=== PATIENT | female | born 2005 | race Caucasian/White ===

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

== ENCOUNTER 2025-04-07 09:50 | Emergency (ER) | payer SELFPAY ==
--- OUTSIDE RECORDS SUMMARY | 2023-10-29 06:40 | XMS_ITS ---
Author Organization [facility] es Address [address] [place] [address] Care Team Providers Care Clock Repairer Name Role Phone Kristen Jarvis Primary Care Provider [phone] Ko Zamudio Unavailable [phone] REASON FOR VISIT EXAM Encounters Encounter Location Date Provider Diagnosis [address] [facility] [address] [place] [address] 10/29/2023 Ko Daley Plan Of Treatment No Information Progress Notes * JOANNA HUGHESDOB:2005 (19 yo F)Acc No.[id number]:10/29/2023 Patient: JOANNA ARANGO .1 Provider: Barbie Daley DDS :2005 A ge:18 Y S ex:Female Date:10/29/2023 [facility] [id number] Pcp:Kristen Jarvis Subjective: * Chief Complaints: * 1 . EXAM. * Medical History: Objective: * Vitals: Assessment: Plan: * Treatment: * Images: * Electronic signature of Francisca Daley DDS on 04/07/2025 at 10:06 AM EDT Sign off status: Pending * Provider: Barbie Daley DDS Date: 10/29/2023 Generated for Kevin wills/Lakhwinder/Yessenia on: 0 04/07/2025 10:06 AM EDT
[2025-04-07 09:57] VITALS: BP 123/67; PULSE 82; TEMP 37.3; O2SAT 99; BMI 17.3
--- OUTSIDE RECORDS SUMMARY | 2025-04-07 10:07 | XMS_ITS | Patient Health Record ---
Author Organization [employer] 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 Name Role Phone Kristen Jarvis Primary Care Provider [phone] Reason For Referral No Information Medications Medication SIG (Take, Route, Frequency, Duration) Notes Start Date End Date Status Ibuprofen Childrens 100 MG/5ML 10 ml as needed Orally every 6 hrs 11/03/2014 Active Omeprazole 20 MG 1 capsule Orally Onc e a day; Duration: 30 day(s) 07/05/2014 Not-Dilan ing Problems Problem Type SNOMED Code ICD Code Onset Dates Problem Status W/U Status Risk Notes Problem Constipation (61241566) Unspecified constipation (564.00) Active confirmed Problem Nausea (690244298) Nausea alone (787.02) Active confirmed Problem Generalized abdominal pain (086276819) Abdominal pain,generalized (789.07) Active confirmed Plan Of Treatment No Information Insurance Providers Payer Name Payer Address Payer Phone Subscriber Number Group Number Insured Name Patient Relationship to Insured Coverage Start Date Coverage End Date [employer] -ter[employer] [address] [place] [address] [id number] JOANNA HUGHES Self - patient is the insured EDICAID [facility] after [employer]- termed [address] [place] [address] [id number] JOANNA HUGHES Self - patient is the insured Medical (General) History Medical History History ICD Code LEVEL 2
--- OUTSIDE RECORDS SUMMARY | 2025-04-07 10:07 | XMS_ITS | Clinical Summary ---
Author Organization [facility] Address [address] [address] Care Team Providers Care Sales And Service Change Leader Name Role Phone Self, Referred Primary Care Provider Unavailabl e Allergies Active Allergy Reactions Criticality Noted Date Comments Ondansetron Hcl Nausea Only 02/14/2025 Encounters Date Type Department Care Team Description 02/14/2025 2:57 PM EDT - 02/14/2025 4:20 PM EDT Emergency [facility] Emergency [address] [place] [id number] Paulino Valdez DO Acute left eye pain (Primary Dx) Discharge Disposition: Home or Self Care () 02/14/2025 Travel from Last 3 Months Social History Tobacco Use Types Packs/Day Years Used Date Smoking Tobacco: Never Smokeless Tobacco: Never Tobacco Cessation:Counseling Given: Not Answered Alcohol Use Standard Drinks/Week Comments Yes 0 (1 standard drink = 0.6 oz pur e alcohol) 4-5 BEERS A WEEK Comments No Sex and Gender Information Value Date Recorded Sex Assigned at Female 02/14/2025 3:35 PM EDT Legal Sex Female 12:10 AM EDT Gender Identity Female 02/14/2025 3:35 PM EDT Sexual Orientation Heterosexual or Straight 01/26 3:35 PM EDT Last Filed Vital Signs Vital Sign Reading Time Taken Comments Blood Pressure 124/71 02/14/2025 4:18 PM EDT Pulse 90 02/14/2025 4:18 PM EDT Temperature 36.4 C (97.6 F) 02/14/2025 3:01 PM EDT Respiratory Rate 18 02/14/2025 4:18 PM EDT Oxygen Saturation 100% 02/14/2025 4:18 PM EDT Inhaled Oxygen Concentration - - Weight 48.5 kg (107 lb) 02/14/2025 3:01 PM EDT Height 177.8 cm (5' 10 ) 02/14/2025 3:01 PM EDT Body Mass Index 15.35 02/14/2025 3:01 PM EDT Plan of Treatment Health Maintenance Due Date Last Done Comments Chlamydia Screening 2005 DTaP/Tdap/Td Vaccines (1 - Tdap) 2012 Depression Screening 2017 Varicella Vaccines (1 of 2 - 13+ 2-dose series) 2018 HPV Vaccines (1 - 3-dose series) 2020 Meningococcal B Vaccine (1 o f 2 - Standard) 2021 COVID-19 Vaccine (1 - 2023-2 5 season) 2025 Influenza Vaccine (#1) 2025 Zoster Vaccines (1 of 2) 2055 HIB Vaccines Aged Out No longer eligi ble based on patient's age to complete this topic IPV Vaccines Aged Out No longer eligi ble based on patient's age to complete this topic Meningococcal Vaccine Aged Out No ancelmo beatris eligible based on patient's age to complete this topic Pneumococcal Vaccine: Pediat rics (0 to 5 Years) and At-Risk Patients (6 to 64 Years) Aged Out No longer eligible b ased on patient's age to complete this topic Rotavirus Vaccines Aged Out No longer eligible based on patient's age to complete this topic Care Teams Sales And Service Change Leader Relationship Specialty Start Date End Date SELF, REFERRED [address] PCP - General 02/14/25
[2025-04-07] MEDS: KETOROLAC TROMETHAMINE 30 MG/ML VIAL IM (10:16)
--- OUTSIDE RECORDS SUMMARY | 2025-04-07 10:21 | XMS_ITS | CCD ---
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 countOrdered By: Anthony Abernathy on 10-19-2023 Nucleated RBC Auto Ql (Bld) 0.1 /100{WBC} 0-0.5 [facility] Opiates [Presence] in Urine by Screen methodOrdered By: Anthony Abernathy on 10-19-2023 Opiates Screen Ql (U) Negative Negative [facility] [place] Phencyclidine Screen Ql (U)O rdered By: Anthony Abernathy on 10-19-2023 Phencyclidine Ql (U) Negative Negative [facility] Platelet mean volume Auto (B ld) [Entitic vol]Ordered By: Anthony Abernathy on 10-19-2023 Platelet mean volume (Bld) [Entitic vol] 7.2 fL 6.3-10.7 [facility] Platelets Auto (Bld) [#/Vol] Ordered By: Anthony Abernathy on 10-19-2023 Platelets (Bld) [#/Vol] 387 10*3/uL 150-450 [facility] Potassium [Moles/volume] in Serum or PlasmaOrdered By: Anthony Abernathy on 10-19-2023 Potassium [Moles/Vol] 2.9 mmol/L 3.5-5.1 [facility] Comment on above: Critical Result Call ed to and read back by: MELIZA LA at: 10/19/2023 03:49:32 by: Protein Auto test strip (U) [Mass/Vol]Ordered By: Anthony Abernathy on 10-19-2023 Protein (U) [Mass/Vol] Negative Negative [facility] Protein [Mass/volume] in Ser um or PlasmaOrdered By: Anthony Abernathy on 10-19-2023 Protein [Mass/Vol] 7.1 g/dL 6.4-8.9 [facility] RBC Auto (Bld) [#/Vol]Ordere d By: Anthony Abernathy on 10-19-2023 RBC (Bld) [#/Vol] 4.14 10*6/uL 4.10-5.10 [facility] Serum or plasma albumin/glob ulin mass ratioOrdered By: Anthony Abernathy on 10-19-2023 Albumin/Globulin [Mass ratio] 1.5 {ratio} [facility] Serum or plasma anion gap de terminationOrdered By: Anthony Abernathy on 10-19-2023 Anion gap [Moles/Vol] 12.5 mmol/L 6.0-15.0 [facility] Sodium [Moles/volume] in Ser um or PlasmaOrdered By: Anthony Abernathy on 10-19-2023 Sodium [Moles/Vol] 138 mmol/L 136-145 [facility] Specific gravity Auto test s trip (U) [Rel density]Ordered By: Anthony Abernathy on 10-19-2023 Specific gravity (U) [Rel density] 1.003 1.001-1.03 0 [facility] Squamous epithelial cells de tection in urine sediment by light microscopyOrdered By: Anthony Abernathy on 10-19-2023 Epithelial cells.squamous LM Ql (Urine sed) 5-9 [HPF] 0-2 [facility] Urea nitrogen [Mass/volume] in Serum or PlasmaOrdered By: Anthony Abernathy on 10-19-2023 Urea nitrogen [Mass/Vol] 17 mg/dL 7-25 [facility] Urine bacteria detection by automated methodOrdered By: Anthony Abernathy on 10-19-2023 Bacteria Auto Ql (U) 1+ None Seen [facility] Urine clarity by refractomet ry automatedOrdered By: Anthony Abernathy on 10-19-2023 Clarity Refractometry automated (U) Clear Clear [facility] Urine glucose measurement by automated test strip (mass/volume)Ordered By: Anthony Abernathy on 10-19-2023 Glucose Auto test strip (U) [Mass/Vol] Normal mg/dL Normal [facility] Urine hemoglobin detection b y automated test stripOrdered By: Anthony Abernathy on 10-19-2023 Hemoglobin Auto test strip Ql (U) 1+ Negative [facility] Urine leukocyte esterase det ection by automated test stripOrdered By: Anthony Abernathy on 10-19-2023 Leukocyte esterase Auto test strip Ql (U) Negative Negative [facility] Urobilinogen Auto test strip (U) [Mass/Vol]Ordered By: Anthony Abernathy on 10-19-2023 Urobilinogen (U) [Mass/Vol] Normal mg/dL Normal [facility] WBC Auto (Bld) [#/Vol]Ordere d By: Anthony Abernathy on 10-19-2023 WBC (Bld) [#/Vol] 9.6 10*3/uL 4.5-13.5 [facility] pH Auto test strip (U)Ordere d By: Anthnoy Abernathy on 10-19-2023 pH (U) 6.5 [pH] 5.0-9.0 [facility] Activated partial thrombopla stin time (aPTT) in platelet poor plasma by coagulation aOrdered By: Reji Wu on 10-03-2023 aPTT Coag (PPP) [Time] 27.2 s 25.1-36.5 [facility] Comment on above: A hematocrit value g reater than 55% may lead to inaccurate results in coagulation testing. Patients having hematocrit values >55% require a special collection tube for coagulation studies. Please contact the laboratory at [phone] for redraw instructions. Basophils Auto (Bld) [#/Vol] Ordered By: PROVIDER TEMP on 10-03-2023 Basophils (Bld) [#/Vol] 0.1 10*3/uL 0.0-0.1 [facility] Basophils/100 WBC Auto (Bld) Ordered By: PROVIDER TEMP on 10-03-2023 Basophils/100 WBC (Bld) 1.1 % . [facility] Calcium [Mass/volume] in Ser um or PlasmaOrdered By: Reji Wu on 10-03-2023 Calcium [Mass/Vol] 9.5 mg/dL 8.6-10.3 [facility] Carbon dioxide, total [Moles /volume] in Serum or PlasmaOrdered By: Reji Wu on 10-03-2023 CO2 [Moles/Vol] 25.6 mmol/L 21.0-31.0 [facility] Chloride [Moles/volume] in S melissa or PlasmaOrdered By: Reji Wu on 10-03-2023 Chloride [Moles/Vol] 104 mmol/L 98-107 [facility] Creatine kinase [Enzymatic a ctivity/volume] in Serum or PlasmaOrdered By: Reji Wu on 10-03-2023 CK [Catalytic activity/Vol] 209 U/L 30-223 [facility] Creatinine [Mass/volume] in Serum or PlasmaOrdered By: Reji Wu on 10-03-2023 Creatinine [Mass/Vol] 0.65 mg/dL 0.60-1.20 [facility] Eosinophils Auto (Bld) [#/Vo l]Ordered By: PROVIDER TEMP on 10-03-2023 Eosinophils (Bld) [#/Vol] 0.1 10*3/uL 0.0-0.7 [facility] Eosinophils/100 WBC Auto (Bl d)Ordered By: PROVIDER TEMP on 10-03-2023 Eosinophils/100 WBC (Bld) 1.1 % . [facility] Erythrocyte distribution wid th Auto (RBC) [Ratio]Ordered By: PROVIDER TEMP on 10-03-2023 Erythrocyte distribution width (RBC) [Ratio] 12.3 % 11.9-15.3 [facility] Glucose [Mass/volume] in Ser um or PlasmaOrdered By: Reji Wu on 10-03-2023 Glucose [Mass/Vol] 111 mg/dL 70-100 [facility] Comment on above: ADA recommended refe rence rangeRandom Glucose Reference Range is dependent on time and content of last meal. Glucose of more than 200 mg/dL in a nonstressed, ambulatory subject supports the diagnosis of Diabetes Mellitus. Hematocrit Auto (Bld) [Volum e fraction]Ordered By: PROVIDER TEMP on 10-03-2023 Hematocrit (Bld) [Volume fraction] 42.6 % 36.0-46.0 [facility] Hemoglobin [Mass/volume] in BloodOrdered By: PROVIDER TEMP on 10-03-2023 Hemoglobin (Bld) [Mass/Vol] 14.2 g/dL 12.0-16.0 [facility] INR in Platelet poor plasma by Coagulation assayOrdered By: Reji Wu on 10-03-2023 INR Coag (PPP) [Relative time] 1.0 {INR} [facility] Comment on above: INR Therapeutic [...] (Bld) [#/Vol] 10.1 10*3/uL 4.5-13.5 [facility] Lymphocytes Auto (Bld) [#/Vo l]Ordered By: PROVIDER TEMP on 10-03-2023 Lymphocytes (Bld) [#/Vol] 2.3 10*3/uL 1.20-4.8 [facility] Lymphocytes/100 WBC Auto (Bl d)Ordered By: PROVIDER TEMP on 10-03-2023 Lymphocytes/100 WBC (Bld) 23.1 % . [facility] MCH Auto (RBC) [Entitic mass ]Ordered By: PROVIDER TEMP on 10-03-2023 MCH (RBC) [Entitic mass] 30.0 pg 25.0-35.0 [facility] MCHC Auto (RBC) [Mass/Vol]Or dered By: PROVIDER TEMP on 10-03-2023 MCHC (RBC) [Mass/Vol] 33.4 g/dL 31.0-37.0 [facility] MCV Auto (RBC) [Entitic vol] Ordered By: PROVIDER TEMP on 10-03-2023 MCV (RBC) [Entitic vol] 89.8 fL 78-102 [facility] Monocyte distribution width [Entitic volume] in Blood by AutomatedOrdered By: PROVIDER TEMP on 10-03-2023 Monocyte distribution width Auto (Bld) [Entitic vol] 17.31 % 0.00-20.00 [facility] Monocytes Auto (Bld) [#/Vol] Ordered By: PROVIDER TEMP on 10-03-2023 Monocytes (Bld) [#/Vol] 0.8 10*3/uL 0.1-1.00 [facility] Monocytes/100 WBC Auto (Bld) Ordered By: PROVIDER TEMP on 10-03-2023 Monocytes/100 WBC (Bld) 7.4 % . [facility] Natriuretic peptide B [Mass/ Vol]Ordered By: Reji Wu on 10-03-2023 Natriuretic peptide B (Bld) [Mass/Vol] 3.0 pg/mL 5-100 [facility] Neutrophils Auto (Bld) [#/Vo l]Ordered By: PROVIDER TEMP on 10-03-2023 Neutrophils (Bld) [#/Vol] 6.8 10*3/uL 1.2-7.7 [facility] Neutrophils/100 WBC Auto (Bl d)Ordered By: PROVIDER TEMP on 10-03-2023 Neutrophils/100 WBC (Bld) 67.3 % . [facility] No Panel InformationOrdered By: Reji Wu on 10-03-2023 Estimated GFR (CKD-EPI) > 60.0 mL/Min [facility] Creatinine Clearance (Chem 99.71 [facility] Nucleated erythrocytes [Pres ence] in Blood by Automated countOrdered By: PROVIDER TEMP on 10-03-2023 Nucleated RBC Auto Ql (Bld) 0.1 /100{WBC} 0-0.5 [facility] Platelet mean volume Auto (B ld) [Entitic vol]Ordered By: PROVIDER TEMP on 10-03-2023 Platelet mean volume (Bld) [Entitic vol] 6.9 fL 6.3-10.7 [facility] Platelets Auto (Bld) [#/Vol] Ordered By: PROVIDER TEMP on 10-03-2023 Platelets (Bld) [#/Vol] 432 10*3/uL 150-450 [facility] Potassium [Moles/volume] in Serum or PlasmaOrdered By: Reji Wu on 10-03-2023 Potassium [Moles/Vol] 3.8 mmol/L 3.5-5.1 [facility] Prothrombin time (PT)Ordered By: Reji Wu on 10-03-2023 PT Coag (PPP) [Time] 11.1 s 9.0-12.9 [facility] Comment on above: A hematocrit value g reater than 55% may lead to inaccurate results in coagulation testing. Patients having hematocrit values >55% require a special collection tube for coagulation studies. Please contact the laboratory at [phone] for redraw instructions. RBC Auto (Bld) [#/Vol]Ordere d By: PROVIDER TEMP on 10-03-2023 RBC (Bld) [#/Vol] 4.74 10*6/uL 4.10-5.10 [facility] Serum or plasma anion gap de terminationOrdered By: Reji Wu on 10-03-2023 Anion gap [Moles/Vol] 10.2 mmol/L 6.0-15.0 [facility] Sodium [Moles/volume] in Ser um or PlasmaOrdered By: Reji Wu on 10-03-2023 Sodium [Moles/Vol] 136 mmol/L 136-145 [facility] Troponin I.cardiac [Mass/vol ume] in Serum or Plasma by Detection limit <= 0.01 ng/Ordered By: Reji Wu on 10-03-2023 Troponin I.cardiac DL <= 0.01 ng/mL [Mass/Vol] < 2.3 pg/mL 0.0-15.0 [facility] Urea nitrogen [Mass/volume] in Serum or PlasmaOrdered By: Reji Wu on 10-03-2023 Urea nitrogen [Mass/Vol] 4 mg/dL 7-25 [facility] WBC Auto (Bld) [#/Vol]Ordere d By: LUCAS TEMOmaira on 10-03-2023 WBC (Bld) [#/Vol] 10.1 10*3/uL 4.5-13.5 [facility] Automated erythrocytes count in urine sediment (number/area)Ordered By: Maciel Maynard on 10-01-2023 RBC Auto (Urine sed) [#/Area] 0-1 [HPF] 0-4 [facility] Automated leukocytes count i n urine sediment (number/area)Ordered By: Maciel Maynard on 10-01-2023 WBC Auto (Urine sed) [#/Area] 1-2 [HPF] 0-4 [facility] Bilirubin Test strip Ql (U)O rdered By: Maciel Maynard on 10-01-2023 Bilirubin Ql (U) Negative Negative [facility] Color Auto (U)Ordered By: Kenji Maynard on 10-01-2023 Color (U) Yellow Yellow [facility] HCG ( test) IA.rapi d Ql (U)Ordered By: Maciel Maynard on 10-01-2023 HCG ( test) Ql (U) Negative [facility] Ketones Auto test strip (U) [Mass/Vol]Ordered By: Maciel Maynard on 10-01-2023 Ketones (U) [Mass/Vol] Negative Negative [facility] - UrinalysisOrder ed By: Maciel Maynard on 10-01-2023 Hyaline casts LM Ql (Urine sed) None seen [LPF] 0-8 [facility] Nitrite Test strip Ql (U)Ord ered By: Maciel Maynard on 10-01-2023 Nitrite Ql (U) Negative Negative [facility] Protein Auto test strip (U) [Mass/Vol]Ordered By: Maciel Maynard on 10-01-2023 Protein (U) [Mass/Vol] Negative Negative [facility] Specific gravity Auto test s trip (U) [Rel density]Ordered By: Maciel Maynard on 10-01-2023 Specific gravity (U) [Rel density] 1.010 1.001-1.03 0 [facility] Squamous epithelial cells de tection in urine sediment by light microscopyOrdered By: Maciel Maynard on 10-01-2023 Epithelial cells.squamous LM Ql (Urine sed) 0-1 [HPF] 0-2 [facility] Urine bacteria detection by automated methodOrdered By: Maciel Maynard on 10-01-2023 Bacteria Auto Ql (U) 1+ None Seen [facility] Urine clarity by refractomet ry automatedOrdered By: Maciel Maynard on 10-01-2023 Clarity Refractometry automated (U) Clear Clear [facility] Urine glucose measurement by automated test strip (mass/volume)Ordered By: Maciel Maynard on 10-01-2023 Glucose Auto test strip (U) [Mass/Vol] Normal mg/dL Normal [facility] Urine hemoglobin detection b y automated test stripOrdered By: Maciel Maynard on 10-01-2023 Hemoglobin Auto test strip Ql (U) Negative Negative [facility] Urine leukocyte esterase det ection by automated test stripOrdered By: Maciel Maynard on 10-01-2023 Leukocyte esterase Auto test strip Ql (U) 1+ Negative [facility] Urobilinogen Auto test strip (U) [Mass/Vol]Ordered By: Maciel Maynard on 10-01-2023 Urobilinogen (U) [Mass/Vol] Normal mg/dL Normal [facility] pH Auto test strip (U)Ordere d By: Maciel Maynard on 10-01-2023 pH (U) 8.0 [pH] 5.0-9.0 [facility] Alanine aminotransferase [En zymatic activity/volume] in Serum or PlasmaOrdered By: Oleg Tucker on 06-14-2023 ALT [Catalytic activity/Vol] 18 U/L 7-52 [facility] Albumin [Mass/volume] in Ser um or Plasma by Bromocresol green (BCG) dye binding methoOrdered By: Oleg Tucker on 06-14-2023 Albumin BCG dye [Mass/Vol] 4.8 g/dL 3.5-5.7 [facility] Alkaline phosphatase [Enzyma tic activity/volume] in Serum or PlasmaOrdered By: Oleg Tucker on 06-14-2023 ALP [Catalytic activity/Vol] 52 U/L 32-92 [facility] Aspartate aminotransferase [ Enzymatic activity/volume] in Serum or PlasmaOrdered By: Oleg Tucker on 06-14-2023 AST [Catalytic activity/Vol] 22 U/L 13-39 [facility] Basophils Auto (Bld) [#/Vol] Ordered By: Oleg Tucker on 06-14-2023 Basophils (Bld) [#/Vol] 0.0 10*3/uL 0.0-0.1 [facility] Basophils/100 WBC Auto (Bld) Ordered By: Oleg Tucker on 06-14-2023 Basophils/100 WBC (Bld) 0.4 % . [facility] Bilirubin.total [Mass/volume ] in Serum or PlasmaOrdered By: Oleg Tucker 06-14-2023 Bilirubin [Mass/Vol] 0.8 mg/dL 0.3-1.2 [facility] Calcium [Mass/volume] in Ser um or PlasmaOrdered By: Oleg Tucker 06-14-2023 Calcium [Mass/Vol] 9.7 mg/dL 8.2-10.2 [facility] Carbon dioxide, total [Moles /volume] in Serum or PlasmaOrdered By: Oleg Tucker 06-14-2023 CO2 [Moles/Vol] 23.0 mmol/L 22.0-30.0 [facility] Chloride [Moles/volume] in S melissa or PlasmaOrdered By: Oleg Tucker 06-14-2023 Chloride [Moles/Vol] 102 mmol/L 95-114 [facility] Creatinine [Mass/volume] in Serum or PlasmaOrdered By: Oleg Tucker 06-14-2023 Creatinine [Mass/Vol] 0.61 mg/dL 0.44-1.03 [facility] Eosinophils Auto (Bld) [#/Vo l]Ordered By: Oleg Tucker 06-14-2023 Eosinophils (Bld) [#/Vol] 0.0 10*3/uL 0.0-0.7 [facility] Eosinophils/100 WBC Auto (Bl d)Ordered By: Oleg Tucker on 06-14-2023 Eosinophils/100 WBC (Bld) 0.1 % . [facility] Erythrocyte distribution wid th Auto (RBC) [Ratio]Ordered By: Oleg Tucker on 06-14-2023 Erythrocyte distribution width (RBC) [Ratio] 13.6 % 11.9-15.3 [facility] Globulin Calc (S) [Mass/Vol] Ordered By: Oleg Tucker on 06-14-2023 Globulin (S) [Mass/Vol] 2.8 g/dL [facility] Glucose [Mass/volume] in Ser um or PlasmaOrdered By: Oleg Tucker on 06-14-2023 Glucose [Mass/Vol] 94 mg/dL 70-100 [facility] Comment on above: ADA recommended refe rence rangeRandom Glucose Reference Range is dependent on time and content of last meal. Glucose of more than 200 mg/dL in a nonstressed, ambulatory subject supports the diagnosis of Diabetes Mellitus. Hematocrit Auto (Bld) [Volum e fraction]Ordered By: Oleg Tucker on 06-14-2023 Hematocrit (Bld) [Volume fraction] 40.0 % 36.0-46.0 [facility] Hemoglobin [Mass/volume] in BloodOrdered By: Oleg Tucker on 06-14-2023 Hemoglobin (Bld) [Mass/Vol] 14.0 g/dL 12.0-16.0 [facility] Leukocytes [#/volume] correc hamlet for nucleated erythrocytes in Blood by Automated counOrdered By: Oleg Tucker on 06-14-2023 WBC corrected for nucl RBC Auto (Bld) [#/Vol] 4.9 10*3/uL 4.5-13.5 [facility] Lipase [Enzymatic activity/v olume] in Serum or PlasmaOrdered By: Oleg Tucker on 06-14-2023 Lipase [Catalytic activity/Vol] 75.0 U/L 11.0-82.0 [facility] Lymphocytes Auto (Bld) [#/Vo l]Ordered By: Oleg Tucker on 06-14-2023 Lymphocytes (Bld) [#/Vol] 1.2 10*3/uL 1.20-4.8 [facility] Lymphocytes/100 WBC Auto (Bl d)Ordered By: Oleg Tucker on 06-14-2023 Lymphocytes/100 WBC (Bld) 24.7 % . [facility] MCH Auto (RBC) [Entitic mass ]Ordered By: Oleg Tucker on 06-14-2023 MCH (RBC) [Entitic mass] 30.9 pg 25.0-35.0 [facility] MCHC Auto (RBC) [Mass/Vol]Or dered By: Oleg Tucker on 06-14-2023 MCHC (RBC) [Mass/Vol] 35.0 g/dL 31.0-37.0 [facility] [place] MCV Auto (RBC) [Entitic vol] Ordered By: Oleg Tucker on 06-14-2023 MCV (RBC) [Entitic vol] 88.1 fL 78-102 [facility] Monocytes Auto (Bld) [#/Vol] Ordered By: Oleg Tucker on 06-14-2023 Monocytes (Bld) [#/Vol] 0.5 10*3/uL 0.1-1.00 [facility] Monocytes/100 WBC Auto (Bld) Ordered By: Oleg Tucker on 06-14-2023 Monocytes/100 WBC (Bld) 10.8 % . [facility] Neutrophils Auto (Bld) [#/Vo l]Ordered By: Oleg Tucker on 06-14-2023 Neutrophils (Bld) [#/Vol] 3.1 10*3/uL 1.2-7.7 [facility] Neutrophils/100 WBC Auto (Bl d)Ordered By: Oleg Tucker on 06-14-2023 Neutrophils/100 WBC (Bld) 64.0 % . [facility] No Panel InformationOrdered By: Oleg Tucker on 06-14-2023 Estimated GFR (CKD-EPI) N/A [facility] Creatinine Clearance (Chem 103.66 [facility] Nucleated erythrocytes [Pres ence] in Blood by Automated countOrdered By: Oleg Tucker on 06-14-2023 Nucleated RBC Auto Ql (Bld) 0.1 /100{WBC} 0-0.5 [facility] Platelet mean volume Auto (B ld) [Entitic vol]Ordered By: Oleg Tucker on 06-14-2023 Platelet mean volume (Bld) [Entitic vol] 7.1 fL 6.3-10.7 [facility] Platelets Auto (Bld) [#/Vol] Ordered By: Oleg Tucker on 06-14-2023 Platelets (Bld) [#/Vol] 282 10*3/uL 150-450 [facility] Potassium [Moles/volume] in Serum or PlasmaOrdered By: Oleg Tucker on 06-14-2023 Potassium [Moles/Vol] 3.2 mmol/L 3.5-5.1 [facility] Protein [Mass/volume] in Ser um or PlasmaOrdered By: Oleg Tucker on 06-14-2023 Protein [Mass/Vol] 7.6 g/dL 6.4-8.9 [facility] RBC Auto (Bld) [#/Vol]Ordere d By: Oleg Tucker on 06-14-2023 RBC (Bld) [#/Vol] 4.54 10*6/uL 4.10-5.10 [facility] Serum or plasma albumin/glob ulin mass ratioOrdered By: Oleg Tucker on 06-14-2023 Albumin/Globulin [Mass ratio] 1.7 {ratio} [facility] Serum or plasma anion gap de terminationOrdered By: Oleg Tucker on 06-14-2023 Anion gap [Moles/Vol] 14.2 mmol/L 6.0-15.0 [facility] Sodium [Moles/volume] in Ser um or PlasmaOrdered By: Oleg Tucker on 06-14-2023 Sodium [Moles/Vol] 136 mmol/L 138-145 [facility] Urea nitrogen [Mass/volume] in Serum or PlasmaOrdered By: Oleg Tucker on 06-14-2023 Urea nitrogen [Mass/Vol] 8 mg/dL 9-23 [facility] WBC Auto (Bld) [#/Vol]Ordere d By: Oleg Tucker on 06-14-2023 WBC (Bld) [#/Vol] 4.9 10*3/uL 4.5-13.5 [facility] [facility] Autom[facility] erythrocytes count in urine sediment (number/area)Ordered By: Oleg Tucker on 06-13-2023 RBC Auto (Urine sed) [#/Area] 1-2 [HPF] 0-4 [facility] Automated leukocytes count i n urine sediment (number/area)Ordered By: Oleg Tucker on 06-13-2023 WBC Auto (Urine sed) [#/Area] 1-2 [HPF] 0-4 [facility] Bilirubin Test strip Ql (U)O rdered By: Oleg Tucker on 06-13-2023 Bilirubin Ql (U) Negative Negative [facility] Color Auto (U)Ordered By: João Tucker on 06-13-2023 Color (U) Yellow Yellow [facility] HCG ( test) IA.rapi d Ql (U)Ordered By: LUCAS KAHN on 06-13-2023 HCG ( test) Ql (U) Negative [facility] Ketones Auto test strip (U) [Mass/Vol]Ordered By: Oleg Tucker on 06-13-2023 Ketones (U) [Mass/Vol] 1+ Negative [facility] - UrinalysisOrder ed By: Oleg Tucker on 06-13-2023 Hyaline casts LM Ql (Urine sed) 0-8 [LPF] 0-8 [facility] Nitrite Test strip Ql (U)Ord ered By: Oleg Tucker on 06-13-2023 Nitrite Ql (U) Negative Negative [facility] Protein Auto test strip (U) [Mass/Vol]Ordered By: Oleg Tucker on 06-13-2023 Protein (U) [Mass/Vol] Negative Negative [facility] Specific gravity Auto test s trip (U) [Rel density]Ordered By: Oleg Tucker on 06-13-2023 Specific gravity (U) [Rel density] 1.008 1.001-1.03 0 [facility] Squamous epithelial cells de tection in urine sediment by light microscopyOrdered By: Oleg Tucker on 06-13-2023 Epithelial cells.squamous LM Ql (Urine sed) 3-4 [HPF] 0-2 [facility] Urine bacteria detection by automated methodOrdered By: Oleg Tucker on 06-13-2023 Bacteria Auto Ql (U) None seen None Seen [facility] Urine clarity by refractomet ry automatedOrdered By: Oleg Tucker on 06-13-2023 Clarity Refractometry automated (U) Clear Clear [facility] Urine glucose measurement by automated test strip (mass/volume)Ordered By: Oleg Tucker on 06-13-2023 Glucose Auto test strip (U) [Mass/Vol] Normal mg/dL Normal [facility] Urine hemoglobin detection b y automated test stripOrdered By: Oleg Tucker on 06-13-2023 Hemoglobin Auto test strip Ql (U) Trace Negative [facility] Urine leukocyte esterase det ection by automated test stripOrdered By: Oleg Tucker on 06-13-2023 Leukocyte esterase Auto test strip Ql (U) Negative Negative [facility] Urobilinogen Auto test strip (U) [Mass/Vol]Ordered By: Oleg Tucker on 06-13-2023 Urobilinogen (U) [Mass/Vol] Normal mg/dL Normal [facility] pH Auto test strip (U)Ordere d By: Oleg Tucker on 06-13-2023 pH (U) 8.0 [pH] 5.0-9.0 [facility] Alanine aminotransferase [En zymatic activity/volume] in Serum or PlasmaOrdered By: Oleg Tucker on 06-12-2023 ALT [Catalytic activity/Vol] 18 U/L 7-52 [facility] Albumin [Mass/volume] in Ser um or Plasma by Bromocresol green (BCG) dye binding methoOrdered By: Oleg Tucker on 06-12-2023 Albumin BCG dye [Mass/Vol] 4.4 g/dL 3.5-5.7 [facility] Alkaline phosphatase [Enzyma tic activity/volume] in Serum or PlasmaOrdered By: Oleg Tucker on 06-12-2023 ALP [Catalytic activity/Vol] 49 U/L 32-92 [facility] Amphetamine Screen Ql (U)Ord ered By: Oleg Tucker on 06-12-2023 Amphetamines Ql (U) Negative Negative [facility] Aspartate aminotransferase [ Enzymatic activity/volume] in Serum or PlasmaOrdered By: Oleg Tucker on 06-12-2023 AST [Catalytic activity/Vol] 34 U/L 13-39 [facility] Barbiturates [Presence] in U rine by Screen methodOrdered By: Oleg Tucker on 06-12-2023 Barbiturates Screen Ql (U) Negative Negative [facility] Basophils Auto (Bld) [#/Vol] Ordered By: Oleg Tucker on 06-12-2023 Basophils (Bld) [#/Vol] 0.0 10*3/uL 0.0-0.1 [facility] Basophils/100 WBC Auto (Bld) Ordered By: Oleg Tucker on 06-12-2023 Basophils/100 WBC (Bld) 0.5 % . [facility] Benzodiazepines Screen Ql (U )Ordered By: Oleg Tucker on 06-12-2023 Benzodiazepines Ql (U) Negative Negative [facility] Benzoylecgonine [Presence] i n Urine by Screen methodOrdered By: Oleg Tucker on 06-12-2023 Benzoylecgonine Screen Ql (U) Negative Negative [facility] Bilirubin Test strip Ql (U)O rdered By: Oleg Tucker on 06-12-2023 Bilirubin Ql (U) Negative Negative [facility] Bilirubin.total [Mass/volume ] in Serum or PlasmaOrdered By: Oleg Tucker on 06-12-2023 Bilirubin [Mass/Vol] 0.6 mg/dL 0.3-1.2 [facility] Calcium [Mass/volume] in Ser um or PlasmaOrdered By: Oleg Tucker on 06-12-2023 Calcium [Mass/Vol] 9.1 mg/dL 8.2-10.2 [facility] Cannabinoids [Presence] in U rine by Screen methodOrdered By: Oleg Tucker on 06-12-2023 Cannabinoids Screen Ql (U) Positive Negative [facility] Comment on above: These are unconfirme d results and should not be used for legal purposes. Drug Cut-Off Concentration: AMPH 1000 ng/mL MILADIS 200 ng/mL KIMBERLY 200 ng/mL COCM 300 ng/mL OP 300 ng/mL PCP 25 ng/mL THC 20 ng/mL Carbon dioxide, total [Moles /volume] in Serum or PlasmaOrdered By: Oleg Tucker on 06-12-2023 CO2 [Moles/Vol] 25.9 mmol/L 22.0-30.0 [facility] Chloride [Moles/volume] in S melissa or PlasmaOrdered By: Oleg Tucker on 06-12-2023 Chloride [Moles/Vol] 104 mmol/L 95-114 [facility] Color Auto (U)Ordered By: João Tucker on 06-12-2023 Color (U) Yellow Yellow [facility] Creatinine [Mass/volume] in Serum or PlasmaOrdered By: Oleg Tucker on 06-12-2023 Creatinine [Mass/Vol] 0.66 mg/dL 0.44-1.03 [facility] Eosinophils Auto (Bld) [#/Vo l]Ordered By: Oleg Tucker on 06-12-2023 Eosinophils (Bld) [#/Vol] 0.0 10*3/uL 0.0-0.7 [facility] Eosinophils/100 WBC Auto (Bl d)Ordered By: Oleg Tucker on 06-12-2023 Eosinophils/100 WBC (Bld) 0.1 % . [facility] Erythrocyte distribution wid th Auto (RBC) [Ratio]Ordered By: Oleg Tucker on 06-12-2023 Erythrocyte distribution width (RBC) [Ratio] 13.3 % 11.9-15.3 [facility] Globulin Calc (S) [Mass/Vol] Ordered By: Oleg Tucker on 06-12-2023 Globulin (S) [Mass/Vol] 2.6 g/dL [facility] Glucose [Mass/volume] in Ser um or PlasmaOrdered By: Oleg Tucker on 06-12-2023 Glucose [Mass/Vol] 115 mg/dL 70-100 [facility] Comment on above: ADA recommended refe rence rangeRandom Glucose Reference Range is dependent on time and content of last meal. Glucose of more than 200 mg/dL in a nonstressed, ambulatory subject supports the diagnosis of Diabetes Mellitus. HCG ( test) IA.rapi d Ql (U)Ordered By: Oleg Tucker on 06-12-2023 HCG ( test) Ql (U) Negative [facility] Hematocrit Auto (Bld) [Volum e fraction]Ordered By: Oleg Tucker on 06-12-2023 Hematocrit (Bld) [Volume fraction] 38.2 % 36.0-46.0 [facility] Hemoglobin [Mass/volume] in BloodOrdered By: Oleg Tucker on 06-12-2023 Hemoglobin (Bld) [Mass/Vol] 13.2 g/dL 12.0-16.0 [facility] Ketones Auto test strip (U) [Mass/Vol]Ordered By: Oleg Tucker on 06-12-2023 Ketones (U) [Mass/Vol] Trace Negative [facility] Leukocytes [#/volume] correc hamlet for nucleated erythrocytes in Blood by Automated counOrdered By: Oleg Tucker on 06-12-2023 WBC corrected for nucl RBC Auto (Bld) [#/Vol] 4.6 10*3/uL 4.5-13.5 [facility] Lipase [Enzymatic activity/v olume] in Serum or PlasmaOrdered By: Oleg Tucker on 06-12-2023 Lipase [Catalytic activity/Vol] 8.0 U/L 11.0-82.0 [facility] Lymphocytes Auto (Bld) [#/Vo l]Ordered By: Oleg Tucker on 06-12-2023 Lymphocytes (Bld) [#/Vol] 1.4 10*3/uL 1.20-4.8 [facility] Lymphocytes/100 WBC Auto (Bl d)Ordered By: Oleg Tucker on 06-12-2023 Lymphocytes/100 WBC (Bld) 30.6 % . [facility] MCH Auto (RBC) [Entitic mass ]Ordered By: Oleg Tucker on 06-12-2023 MCH (RBC) [Entitic mass] 30.8 pg 25.0-35.0 [facility] MCHC Auto (RBC) [Mass/Vol]Or dered By: Oleg Tucker on 06-12-2023 MCHC (RBC) [Mass/Vol] 34.6 g/dL 31.0-37.0 [facility] MCV Auto (RBC) [Entitic vol] Ordered By: Oleg Tucker on 06-12-2023 MCV (RBC) [Entitic vol] 89.3 fL 78-102 [facility] Monocytes Auto (Bld) [#/Vol] Ordered By: Oleg Tucker on 06-12-2023 Monocytes (Bld) [#/Vol] 0.7 10*3/uL 0.1-1.00 [facility] Monocytes/100 WBC Auto (Bld) Ordered By: Oleg Tucker on 06-12-2023 Monocytes/100 WBC (Bld) 16.2 % . [facility] Neutrophils Auto (Bld) [#/Vo l]Ordered By: Oleg Tucker on 06-12-2023 Neutrophils (Bld) [#/Vol] 2.4 10*3/uL 1.2-7.7 [facility] Neutrophils/100 WBC Auto (Bl d)Ordered By: Oleg Tucker on 06-12-2023 Neutrophils/100 WBC (Bld) 52.6 % . [facility] Nitrite Test strip Ql (U)Ord ered By: Oleg Tucker on 06-12-2023 Nitrite Ql (U) Negative Negative [facility] No Panel InformationOrdered By: Oleg Tucker on 06-12-2023 Estimated GFR (CKD-EPI) N/A [facility] Creatinine Clearance (Chem 90.87 [facility] Nucleated erythrocytes [Pres ence] in Blood by Automated countOrdered By: Oleg Tucker on 06-12-2023 Nucleated RBC Auto Ql (Bld) 0.1 /100{WBC} 0-0.5 [facility] Opiates [Presence] in Urine by Screen methodOrdered By: Oleg Tucker on 06-12-2023 Opiates Screen Ql (U) Negative Negative [facility] Phencyclidine Screen Ql (U)O rdered By: Oleg Tucker on 06-12-2023 Phencyclidine Ql (U) Negative Negative [facility] Platelet mean volume Auto (B ld) [Entitic vol]Ordered By: Oleg Tucker on 06-12-2023 Platelet mean volume (Bld) [Entitic vol] 7.4 fL 6.3-10.7 [facility] Platelets Auto (Bld) [#/Vol] Ordered By: Oleg Tucker on 06-12-2023 Platelets (Bld) [#/Vol] 235 10*3/uL 150-450 [facility] Potassium [Moles/volume] in Serum or PlasmaOrdered By: Oleg Tucker on 06-12-2023 Potassium [Moles/Vol] 3.3 mmol/L 3.5-5.1 [facility] Protein Auto test strip (U) [Mass/Vol]Ordered By: Oleg Tucker on 06-12-2023 Protein (U) [Mass/Vol] Negative Negative [facility] Protein [Mass/volume] in Ser um or PlasmaOrdered By: Oleg Tucker on 06-12-2023 Protein [Mass/Vol] 7.0 g/dL 6.4-8.9 [facility] RBC Auto (Bld) [#/Vol]Ordere d By: Oleg Tucker on 06-12-2023 RBC (Bld) [#/Vol] 4.27 10*6/uL 4.10-5.10 [facility] Serum or plasma albumin/glob ulin mass ratioOrdered By: Oleg Tucker on 06-12-2023 Albumin/Globulin [Mass ratio] 1.7 {ratio} [facility] Serum or plasma anion gap de terminationOrdered By: Oleg Tucker on 06-12-2023 Anion gap [Moles/Vol] 10.4 mmol/L 6.0-15.0 [facility] Sodium [Moles/volume] in Ser um or PlasmaOrdered By: Oleg Tucker on 06-12-2023 Sodium [Moles/Vol] 137 mmol/L 138-145 [facility] Specific gravity Auto test s trip (U) [Rel density]Ordered By: Oleg Tucker on 06-12-2023 Specific gravity (U) [Rel density] 1.003 1.001-1.03 0 [facility] Urea nitrogen [Mass/volume] in Serum or PlasmaOrdered By: Oleg Tucker on 06-12-2023 Urea nitrogen [Mass/Vol] 7 mg/dL 9-23 [facility] Urine clarity by refractomet ry automatedOrdered By: Oleg Tucker on 06-12-2023 Clarity Refractometry automated (U) Clear Clear [facility] Urine glucose measurement by automated test strip (mass/volume)Ordered By: Oleg Tucker on 06-12-2023 Glucose Auto test strip (U) [Mass/Vol] Normal mg/dL Normal [facility] Urine hemoglobin detection b y automated test stripOrdered By: Oleg Tucker on 06-12-2023 Hemoglobin Auto test strip Ql (U) Negative Negative [facility] Urine leukocyte esterase det ection by automated test stripOrdered By: Oleg Tucker on 06-12-2023 Leukocyte esterase Auto test strip Ql (U) Negative Negative [facility] Urobilinogen Auto test strip (U) [Mass/Vol]Ordered By: Oleg Tucker on 06-12-2023 Urobilinogen (U) [Mass/Vol] Normal mg/dL Normal [facility] WBC Auto (Bld) [#/Vol]Ordere d By: Oleg Tucker on 06-12-2023 WBC (Bld) [#/Vol] 4.6 10*3/uL 4.5-13.5 [facility] pH Auto test strip (U)Ordere d By: Oleg Tucker on 06-12-2023 pH (U) 7.5 [pH] 5.0-9.0 [facility] CHEMISTRYOrdered By: SYSTEM SYSTEM on 06-11-2023 Amphetamines [...] requested by Physican\Critical Result UD_COCM:POS Called to CROA MURO AT ED by MELIZA WASHBURN And [...] 0.2 % Normal 0.0 - 2.0 % [facility] HemeAutoSS Basophils/Leukocytes Auto (Bld) [Pure # fraction] [...] 06-11-2023 HCG.beta subunit (U) [Moles/Vol] Negative Normal [facility] URINALYSISOrdered By: Shelbie Reis on [...] Interpretation Code Negative [facility] UA Auto SS [place].plasma/[place] .RBC (Bld) [Mass ratio] 0-3 /HPF Normal [...] PM) Invalid Interpretation Code 1.005 - 1.030 [facility] UA Auto SS UA Spec Desc Clean Catch (06/11/23 2:12 PM) Normal [facility] UA Auto SS Urobilinogen Qn (U) [id number] {[place]'U}/dL Normal 0.0 - 1.0 EU/dL [facility] UA Auto SS WBC Auto Ql (U) Negative (06/11/23 2:12 PM) Normal Negative [facility] UA Auto SS WBC LM.HPF (Urine sed) [#/Area] 6-15 /HPF Invalid Interpretation Code 0-5/HPF [facility] UA Auto SS Alanine aminotransferase [En zymatic activity/volume] in Serum or PlasmaOrdered By: Ty Smith on 06-10-2023 ALT [Catalytic activity/Vol] 16 U/L 7-52 [facility] Albumin [Mass/volume] in Ser um or Plasma by Bromocresol green (BCG) dye binding methoOrdered By: Ty Smith on 06-10-2023 Albumin BCG dye [Mass/Vol] 5.0 g/dL 3.5-5.7 [facility] Alkaline phosphatase [Enzyma tic activity/volume] in Serum or PlasmaOrdered By: Ty Smith on 06-10-2023 ALP [Catalytic activity/Vol] 62 U/L 32-92 [facility] Aspartate aminotransferase [ Enzymatic activity/volume] in Serum or PlasmaOrdered By: Ty Smith on 06-10-2023 AST [Catalytic activity/Vol] 22 U/L 13-39 [facility] Basophils Auto (Bld) [#/Vol] Ordered By: Ty Smith on 06-10-2023 Basophils (Bld) [#/Vol] 0.1 10*3/uL 0.0-0.1 [facility] Basophils/100 WBC Auto (Bld) Ordered By: Ty Smith on 06-10-2023 Basophils/100 WBC (Bld) 0.6 % . [facility] Bilirubin.total [Mass/volume ] in Serum or PlasmaOrdered By: Ty Smith on 06-10-2023 Bilirubin [Mass/Vol] 1.3 mg/dL 0.3-1.2 [facility] Comment on above: Samples from patient s who have taken Naproxen have shown spurious elevation in Total Bilirubin levels. A metabolite of Naproxen, O-desmethylnaproxen, has been shown to interfere with the Carola-Navi method for measuring Total Bilirubin. Calcium [Mass/volume] in Ser um or PlasmaOrdered By: Ty Smith on 06-10-2023 Calcium [Mass/Vol] 10.4 mg/dL 8.2-10.2 [facility] Carbon dioxide, total [Moles /volume] in Serum or PlasmaOrdered By: Ty Smith on 06-10-2023 CO2 [Moles/Vol] 24.2 mmol/L 22.0-30.0 [facility] Chloride [Moles/volume] in S melissa or PlasmaOrdered By: Ty Smith on 06-10-2023 Chloride [Moles/Vol] 104 mmol/L 95-114 [facility] Creatinine [Mass/volume] in Serum or PlasmaOrdered By: Ty Smith on 06-10-2023 Creatinine [Mass/Vol] 0.85 mg/dL 0.44-1.03 [facility] Eosinophils Auto (Bld) [#/Vo l]Ordered By: Ty Smith on 06-10-2023 Eosinophils (Bld) [#/Vol] 0.0 10*3/uL 0.0-0.7 [facility] Eosinophils/100 WBC Auto (Bl d)Ordered By: Ty Smith on 06-10-2023 Eosinophils/100 WBC (Bld) 0.1 % . [facility] Erythrocyte distribution wid th Auto (RBC) [Ratio]Ordered By: Ty Smith on 06-10-2023 Erythrocyte distribution width (RBC) [Ratio] 13.2 % 11.9-15.3 [facility] Globulin Calc (S) [Mass/Vol] Ordered By: Ty Smith on 06-10-2023 Globulin (S) [Mass/Vol] 2.9 g/dL [facility] Glucose [Mass/volume] in Ser um or PlasmaOrdered By: Ty Smith on 06-10-2023 Glucose [Mass/Vol] 126 mg/dL 70-100 [facility] Comment on above: ADA recommended refe rence rangeRandom Glucose Reference Range is dependent on time and content of last meal. Glucose of more than 200 mg/dL in a nonstressed, ambulatory subject supports the diagnosis of Diabetes Mellitus. Hematocrit Auto (Bld) [Volum e fraction]Ordered By: Ty Smith on 06-10-2023 Hematocrit (Bld) [Volume fraction] 41.8 % 36.0-46.0 [facility] Hemoglobin [Mass/volume] in BloodOrdered By: Ty Smith on 06-10-2023 Hemoglobin (Bld) [Mass/Vol] 14.3 g/dL 12.0-16.0 [facility] Leukocytes [#/volume] correc hamlet for nucleated erythrocytes in Blood by Automated counOrdered By: Ty Smith on 06-10-2023 WBC corrected for nucl RBC Auto (Bld) [#/Vol] 10.5 10*3/uL 4.5-13.5 [facility] Lipase [Enzymatic activity/v olume] in Serum or PlasmaOrdered By: Ty Smith on 06-10-2023 Lipase [Catalytic activity/Vol] 7.0 U/L 11.0-82.0 [facility] Lymphocytes Auto (Bld) [#/Vo l]Ordered By: Ty Smith on 06-10-2023 Lymphocytes (Bld) [#/Vol] 0.5 10*3/uL 1.20-4.8 [facility] Lymphocytes/100 WBC Auto (Bl d)Ordered By: Ty Smith on 06-10-2023 Lymphocytes/100 WBC (Bld) 4.7 % . [facility] MCH Auto (RBC) [Entitic mass ]Ordered By: Ty Smith on 06-10-2023 MCH (RBC) [Entitic mass] 31.1 pg 25.0-35.0 [facility] MCHC Auto (RBC) [Mass/Vol]Or dered By: Ty Smith on 06-10-2023 MCHC (RBC) [Mass/Vol] 34.1 g/dL 31.0-37.0 [facility] MCV Auto (RBC) [Entitic vol] Ordered By: Ty Smith on 06-10-2023 MCV (RBC) [Entitic vol] 91.1 fL 78-102 [facility] Monocytes Auto (Bld) [#/Vol] Ordered By: Ty Smith on 06-10-2023 Monocytes (Bld) [#/Vol] 0.7 10*3/uL 0.1-1.00 [facility] Monocytes/100 WBC Auto (Bld) Ordered By: Ty Smith on 06-10-2023 Monocytes/100 WBC (Bld) 6.6 % . [facility] Neutrophils Auto (Bld) [#/Vo l]Ordered By: Ty Smith on 06-10-2023 Neutrophils (Bld) [#/Vol] 9.3 10*3/uL 1.2-7.7 [facility] Neutrophils/100 WBC Auto (Bl d)Ordered By: Ty Smith on 06-10-2023 Neutrophils/100 WBC (Bld) 88.0 % . [facility] No Panel InformationOrdered By: Ty Smith on 06-10-2023 Estimated GFR (CKD-EPI) N/A [facility] Creatinine Clearance (Chem 71.49 [facility] Nucleated erythrocytes [Pres ence] in Blood by Automated countOrdered By: Ty Smith on 06-10-2023 Nucleated RBC Auto Ql (Bld) 0.0 /100{WBC} 0-0.5 [facility] Platelet mean volume Auto (B ld) [Entitic vol]Ordered By: Ty Smith on 06-10-2023 Platelet mean volume (Bld) [Entitic vol] 7.5 fL 6.3-10.7 [facility] Platelets Auto (Bld) [#/Vol] Ordered By: Ty Smith on 06-10-2023 Platelets (Bld) [#/Vol] 317 10*3/uL 150-450 [facility] Potassium [Moles/volume] in Serum or PlasmaOrdered By: Ty Smith on 06-10-2023 Potassium [Moles/Vol] 3.6 mmol/L 3.5-5.1 [facility] Protein [Mass/volume] in Ser um or PlasmaOrdered By: Ty Smith on 06-10-2023 Protein [Mass/Vol] 7.9 g/dL 6.4-8.9 [facility] RBC Auto (Bld) [#/Vol]Ordere d By: Ty Smith on 06-10-2023 RBC (Bld) [#/Vol] 4.59 10*6/uL 4.10-5.10 [facility] Serum or plasma albumin/glob ulin mass ratioOrdered By: Ty Smith on 06-10-2023 Albumin/Globulin [Mass ratio] 1.7 {ratio} [facility] Serum or plasma anion gap de terminationOrdered By: Ty Smith on 06-10-2023 Anion gap [Moles/Vol] 15.4 mmol/L 6.0-15.0 [facility] Sodium [Moles/volume] in Ser um or PlasmaOrdered By: Ty Smith on 06-10-2023 Sodium [Moles/Vol] 140 mmol/L 138-145 [facility] Urea nitrogen [Mass/volume] in Serum or PlasmaOrdered By: Ty Smith on 06-10-2023 Urea nitrogen [Mass/Vol] 8 mg/dL 04-19 [facility] WBC Auto (Bld) [#/Vol]Ordere d By: Ty Smith on 06-10-2023 WBC (Bld) [#/Vol] 10.5 10*3/uL 4.5-13.5 [facility] GROUP A STREP CULTUREon S. pyogenes Ag Ql (Unsp spec) Culture Observations: NEGATIVE FOR GROUP A STREPTOCOCCUS. Normal [facility] Comment on above: Performed By: #### G RASTCX, SSCRN #### [facility] [address] [place] [address] Dr. Saba Navarro STREPT SCREENon 11-27-2022 STREP SCREEN A Negative Normal NEGATIVE [facility] Comment on above: Performed By: #### G RASTCX, SSCRN #### [facility] [address] [place] [address] Dr. Saba Navarro CBC AUTO DIFFon 11-14-2022 BASO # 0.1 103/ul Normal 0.0-0.1 [facility] Comment on above: Performed By: #### C BC #### [facility] [address] [place] [address] Dr. Saba Navarro Basophils/100 WBC (Bld) 0.9 % Normal 0.2-2.0 [facility] Comment on above: Performed By: #### C BC #### [facility] [address] [place] [address] Dr. Saba Navarro EO # 0.1 103/ul Normal 0.0-0.7 [facility] Comment on above: Performed By: #### C BC #### [facility] [address] [place] [address] Dr. Saba Navarro Eosinophils/100 WBC (Bld) 1.6 % Normal 0.9-7.0 [facility] Comment on above: Performed By: #### C BC #### [facility] [address] [place] [address] Dr. Saba Navarro Erythrocyte distribution width (RBC) [Ratio] 12.4 % Normal 11.0-15.0 Comment on above: Performed By: #### C BC #### [facility] [address] [place] [address] Dr. Saba Navarro Hematocrit (Bld) [Volume fraction] 40.8 % Normal 36.0-48.0 Comment on above: Performed By: #### C BC #### [facility] [address] [place] [address] Dr. Saba Navarro Hemoglobin (Bld) [Mass/Vol] 13.6 g/dL Normal 12.0-16.0 Comment on above: Performed By: #### C BC #### [facility] [address] [place] [address] Dr. Saba Navarro IG # 0.02 10e3/ul Normal 0.00-0.03 [facility] Comment on above: Performed By: #### C BC #### [facility] [address] [place] [address] Dr. Saba Navarro IG % 0.3 % Normal 0.0-0.5 [facility] Comment on above: Performed By: #### C BC #### [facility] [address] [place] [address] Dr. Saba Navarro LYMPH # 1.7 103/ul Normal 1.2-3.8 [facility] Comment on above: Performed By: #### C BC #### [facility] [address] [place] [address] Dr. Saba Navarro Lymphocytes/100 WBC (Bld) 21.2 % Normal 20.5-60.0 [facility] Comment on above: Performed By: #### C BC #### [facility] [facility] [address] [place] [address] Dr. Saba Navarro MANUAL DIFF REQ NO Normal [facility] Comment on above: Performed By: #### C BC #### [facility] [address] [place] [address] Dr. Saba Navarro MCH (RBC) [Entitic mass] 30.1 pg Normal 26.7-34.0 [facility] Comment on above: Performed By: #### C BC #### [facility] [address] [place] [address] Dr. Saba Navarro MCHC (RBC) [Mass/Vol] 33.3 g/dL Normal 29.9-35.2 [facility] Comment on above: Performed By: #### C BC #### [facility] [address] [place] [address] Dr. Saba Navarro MCV (RBC) [Entitic vol] 90.3 fL Normal 79.1-95.6 [facility] Comment on above: Performed By: #### C BC #### [facility] [address] [place] [address] Dr. Saba Navarro MONO # 0.7 103/ul Normal 0.3-0.8 [facility] Comment on above: Performed By: #### C BC #### [facility] [address] [place] [address] Dr. Saba Navarro Monocytes/100 WBC (Bld) 9.3 % Normal 1.7-12.0 [facility] Comment on above: Performed By: #### C BC #### [facility] [address] [place] [address] Dr. Saba Navarro NEUT # 5.3 103/ul Normal 1.4-6.5 [facility] Comment on above: Performed By: #### C BC #### [facility] [address] [place] [address] Dr. Saba Navarro Neutrophils/100 WBC (Bld) 66.7 % Normal 43.0-75.0 Comment on above: Performed By: #### C BC #### [facility] [address] [place] [address] Dr. Saba Navarro Platelet mean volume (Bld) [Entitic vol] 9.2 fL Critically low 9.5-13.5 Comment on above: Performed By: #### C BC #### [facility] [address] [place] [address] Dr. Saba Navarro PLT 291 103/ul Normal 150-450 Comment on above: Performed By: #### C BC #### [facility] [address] [place] [address] Dr. Saba Navarro RBC 4.52 106/ul Normal 3.40-5.30 Comment on above: Performed By: #### C BC #### [facility] [address] [place] [address] Dr. Saba Navarro WBC 7.9 103/ul Normal 4.0-11.0 [facility] Comment on above: Performed By: #### C BC #### [facility] [address] [place] [address] Dr. Saba Navarro PROF CHEM 8 (BAS METB)on Anion gap [Moles/Vol] 14.8 mmol/L Normal [facility] Comment on above: Performed By: #### B MP #### [facility] [address] [place] [address] Dr. Saba Navarro Calcium [Mass/Vol] 9.1 mg/dL Normal 8.5-10.1 [facility] Comment on above: Performed By: #### B MP #### [facility] [address] [place] [address] Dr. Saba Navarro Chloride [Moles/Vol] 105 mmol/L Normal 98-107 [facility] Comment on above: Performed By: #### B MP #### [facility] [address] [place] [address] Dr. Saba Navarro CO2 [Moles/Vol] 25.6 mmol/L Normal 21.0-32.0 Comment on above: Performed By: #### B MP #### [facility] [address] [address] [address] Saba Navarro Creatinine [Mass/Vol] 0.67 mg/dL Normal 0.55-1.02 Comment on above: Performed By: #### B MP #### [facility] [address] [address] [address] Saba Navarro EGFR-AF NICARAGUAN >60 Normal >=60 Comment on above: Performed By: #### B MP #### [facility] [address] [address] [address] Saba Navarro EGFR-NON AF NICARAGUAN >60 Normal >=60 Comment on above: Performed By: #### B MP #### [facility] [address] [address] [address] Saba Navarro Glucose [Mass/Vol] 114 mg/dL Critically high 74-106 [facility] Comment on above: Performed By: #### B MP #### [facility] [address] [address] [address] Saba Navarro Potassium [Moles/Vol] 3.4 mmol/L Critically low 3.5-5.1 Comment on above: Performed By: #### B MP #### [facility] [address] [address] [address] Saba Navarro Sodium [Moles/Vol] 142 mmol/L Normal 136-145 [facility] Comment on above: Performed By: #### B MP #### [facility] [address] [address] [address] Saba Navarro Urea nitrogen [Mass/Vol] 4.0 mg/dL Critically low 6.4-19.3 Comment on above: Performed By: #### B MP #### [facility] [address] [address] [address] Saba Navarro Urea nitrogen/Creatinine [Mass ratio] 6.0 mg/mg Normal Comment on above: Performed By: #### B MP #### [facility] [address] [address] [address] Saba Navarro Albumin [Mass/volume] in Ser um or PlasmaOrdered By: Edenilson Garces on 05-25-2022 Albumin [Mass/Vol] 4.4 g/dL 3.2-5.5 [facility] Amphetamine Screen Ql (U)Ord ered By: Edenilson Garces on 05-25-2022 Amphetamines Ql (U) Negative Negative [facility] Automated erythrocytes count in urine sediment (number/area)Ordered By: Edenilson Garces on 05-25-2022 RBC Auto (Urine sed) [#/Area] 1-2 [HPF] 0-4 [facility] Automated leukocytes count i n urine sediment (number/area)Ordered By: Edenilson Garces on 05-25-2022 WBC Auto (Urine sed) [#/Area] 20-49 [HPF] 0-4 [facility] Barbiturates [Presence] in U rineOrdered By: Edenilson Garces on 05-25-2022 Barbiturates Ql (U) Negative Negative [facility] Basophils Auto (Bld) [#/Vol] Ordered By: Edenilson Garces on 05-25-2022 Basophils (Bld) [#/Vol] 0.0 10*3/uL 0.0-0.1 [facility] Basophils/100 WBC Auto (Bld) Ordered By: Edenilson Garces on 05-25-2022 Basophils/100 WBC (Bld) 0.2 % . [facility] Benzodiazepines [Presence] i n UrineOrdered By: Edenilson Garces on 05-25-2022 Benzodiazepines Ql (U) Negative Negative [facility] Bilirubin Test strip Ql (U)O rdered By: Edenilson Garces on 05-25-2022 Bilirubin Ql (U) Negative Negative [facility] COVID-19 SOFIAOrdered By: Elle Garces on 05-25-2022 SARS-CoV+SARS-CoV-2 (COVID-19) Ag IA.rapid Ql (Resp) Negative Negative [facility] Comment on above: This is a duplicate Desire SARS Antigen (BUCKY) result to be used for statistical tracking purpose only. Cannabinoids [Presence] in U rine by Screen methodOrdered By: Edenilson Garces on 05-25-2022 Cannabinoids Screen Ql (U) Positive Negative [facility] Comment on above: These are unconfirme d results and should not be used for legal purposes. Drug Cut-Off Concentration: AMPH 1000 ng/mL MILADIS 200 ng/mL KIMBERLY 200 ng/mL COCM 300 ng/mL OP 300 ng/mL PCP 25 ng/mL THC 20 ng/mL Color Auto (U)Ordered By: Elle Garces on 05-25-2022 Color (U) Yellow Yellow [facility] Creatinine and Glomerular fi ltration rate.predicted panel (S/P/Bld)Ordered By: Edenilson Garces on 05-25-2022 Creatinine [Mass/Vol] 0.67 mg/dL 0.44-1.03 [facility] Eosinophils Auto (Bld) [#/Vo l]Ordered By: Edenilson Garces on 05-25-2022 Eosinophils (Bld) [#/Vol] 0.0 10*3/uL 0.0-0.7 [facility] Eosinophils/100 WBC Auto (Bl d)Ordered By: Edenilson Garces on 05-25-2022 Eosinophils/100 WBC (Bld) 0.3 % . [facility] Erythrocyte distribution wid th Auto (RBC) [Ratio]Ordered By: Edenilson Garces on 05-25-2022 Erythrocyte distribution width (RBC) [Ratio] 13.1 % 11.9-15.3 [facility] Estimated glomerular filtrat ion rate (GFR) non- AmericanOrdered By: Edenilson Garces on 05-25-2022 GFR/1.73 sq M.predicted among non-blacks MDRD (S/P/Bld) [Vol rate/Area] N/A [facility] Globulin Calc (S) [Mass/Vol] Ordered By: Edenilson Garces on 05-25-2022 Globulin (S) [Mass/Vol] 2.5 g/dL [facility] HCG ( test) IA.rapi d Ql (U)Ordered By: Edenilson Garces on 05-25-2022 HCG ( test) Ql (U) Negative [facility] Hematocrit Auto (Bld) [Volum e fraction]Ordered By: Edenilson Garces on 05-25-2022 Hematocrit (Bld) [Volume fraction] 39.8 % 36.0-46.0 [facility] Hemoglobin [Mass/volume] in BloodOrdered By: Edenilson Garces on 05-25-2022 Hemoglobin (Bld) [Mass/Vol] 13.3 g/dL 12.0-16.0 [facility] Ketones Auto test strip (U) [Mass/Vol]Ordered By: Edenilson Garces on 05-25-2022 Ketones (U) [Mass/Vol] Negative Negative [facility] - Drug toxicology Ordered By: Edenilson Garces on 05-25-2022 Opiates Ql (U) Negative Negative [facility] Laboratory - Hematology and Cell countsOrdered By: Edenilson Garces on 05-25-2022 Nucleated RBC/100 WBC (Bld) [Ratio] 0.0 % 0-0.5 [facility] Laboratory - UrinalysisOrder ed By: Edenilson Garces on 05-25-2022 Hyaline casts LM Ql (Urine sed) 0-8 [LPF] 0-8 [facility] Leukocytes [#/volume] in Blo od by Automated countOrdered By: Edenilson Garces on 05-25-2022 WBC (Bld) [#/Vol] 10.9 10*3/uL 4.5-13.5 [facility] Lymphocytes Auto (Bld) [#/Vo l]Ordered By: Edenilson Garces on 05-25-2022 Lymphocytes (Bld) [#/Vol] 1.6 10*3/uL 1.20-4.8 [facility] Lymphocytes/100 WBC Auto (Bl d)Ordered By: Edenilson Garces on 05-25-2022 Lymphocytes/100 WBC (Bld) 14.3 % . [facility] MCH Auto (RBC) [Entitic mass ]Ordered By: Edenilson Garces on 05-25-2022 MCH (RBC) [Entitic mass] 29.8 pg 25.0-35.0 [facility] MCHC Auto (RBC) [Mass/Vol]Or dered By: Edenilson Garces on 05-25-2022 MCHC (RBC) [Mass/Vol] 33.3 g/dL 31.0-37.0 [facility] MCV Auto (RBC) [Entitic vol] Ordered By: Edenilson Garces on 05-25-2022 MCV (RBC) [Entitic vol] 89.5 fL 78-102 [facility] Monocytes Auto (Bld) [#/Vol] Ordered By: Edenilson Garces on 05-25-2022 Monocytes (Bld) [#/Vol] 0.8 10*3/uL 0.1-1.00 [facility] Monocytes/100 WBC Auto (Bld) Ordered By: Edenilson Garces on 05-25-2022 Monocytes/100 WBC (Bld) 7.0 % . [facility] Neutrophils Auto (Bld) [#/Vo l]Ordered By: Edenilson Garces on 05-25-2022 Neutrophils (Bld) [#/Vol] 8.6 10*3/uL 1.2-7.7 [facility] Neutrophils/100 WBC Auto (Bl d)Ordered By: Edenilson Garces on 05-25-2022 Neutrophils/100 WBC (Bld) 78.2 % . [facility] Nitrite Test strip Ql (U)Ord ered By: Edenilson Garces on 05-25-2022 Nitrite Ql (U) Negative Negative [facility] No Panel InformationOrdered By: Edenilson Garces on 05-25-2022 Estimated GFR () N/A [facility] Creatinine Clearance (Chem 108.70 [facility] SARS Antigen (LFIA) [facility] Phencyclidine Screen Ql (U)O rdered By: Edenilson Garces on 05-25-2022 Phencyclidine Ql (U) Negative Negative [facility] Platelet mean volume Auto (B ld) [Entitic vol]Ordered By: Edenilson Garces on 05-25-2022 Platelet mean volume (Bld) [Entitic vol] 7.7 fL 6.3-10.7 [facility] Platelets Auto (Bld) [#/Vol] Ordered By: Edenilson Garces on 05-25-2022 Platelets (Bld) [#/Vol] 275 10*3/uL 150-450 [facility] Protein Auto test strip (U) [Mass/Vol]Ordered By: Edenilson Garces on 05-25-2022 Protein (U) [Mass/Vol] Trace mg/dL Negative [facility] Protein [Mass/volume] in Ser um or PlasmaOrdered By: Edenilson Garces on 05-25-2022 Protein [Mass/Vol] 6.9 g/dL 6.1-7.9 [facility] RBC Auto (Bld) [#/Vol]Ordere d By: Edenilson Garces on 05-25-2022 RBC (Bld) [#/Vol] 4.45 10*6/uL 4.10-5.10 [facility] Salicylates [Mass/volume] in Serum or PlasmaOrdered By: Edenilson Garces on 05-25-2022 Salicylates [Mass/Vol] mg/dL 15.0-30.0 [facility] Comment on above: Patients treated wit h Sulfasalazine may generate a false high result for Salicylate.Patients treated with Sulfapyridine may generate a false low result for Salicylate. Serum or plasma acetaminophe n measurement (mass/volume)Ordered By: Edenilson Garces on 05-25-2022 Acetaminophen [Mass/Vol] ug/mL 10.0-30.0 [facility] Serum or plasma alanine solano otransferase measurement without P-5'-P (enzymatic activiOrdered By: Edenilson Garces on 05-25-2022 ALT No additional P-5'-P [Catalytic activity/Vol] 13 U/L 1060 [facility] Serum or plasma albumin/glob ulin mass ratioOrdered By: Edenilson Garces on 05-25-2022 Albumin/Globulin [Mass ratio] 1.8 {ratio} [facility] Serum or plasma alkaline avis sphatase measurement (enzymatic activity/volume)Ordered By: Edenilson Garces on 05-25-2022 ALP [Catalytic activity/Vol] 69 U/L 67-372 [facility] Serum or plasma anion gap de terminationOrdered By: Edenilson Garces on 05-25-2022 Anion gap [Moles/Vol] 14.6 mmol/L 6.0-15.0 [facility] Serum or plasma aspartate am inotransferase measurement (enzymatic activity/volume)Ordered By: Edenilson Garces on 05-25-2022 AST [Catalytic activity/Vol] 20 U/L 10-42 [facility] Serum or plasma calcium delfin urement (mass/volume)Ordered By: Edenilson Garces on 05-25-2022 Calcium [Mass/Vol] 9.6 mg/dL 8.2-10.2 [facility] Serum or plasma chloride latrell surement (moles/volume)Ordered By: Edenilson Garces on 05-25-2022 Chloride [Moles/Vol] 102 mmol/L 95-114 [facility] Serum or plasma ethanol delfin urement (mass/volume)Ordered By: Edenilson Garces on 05-25-2022 Ethanol [Mass/Vol] mg/dL [facility] Ethanol [Mass/Vol] TNP [facility] Comment on above: Test not performed Serum or plasma glucose delfin urement (mass/volume)Ordered By: Edenilson Garces on 05-25-2022 Glucose [Mass/Vol] 109 mg/dL 70-100 [facility] Comment on above: ADA recommended refe rence rangeRandom Glucose Reference Range is dependent on time and content of last meal. Glucose of more than 200 mg/dL in a nonstressed, ambulatory subject supports the diagnosis of Diabetes Mellitus. Serum or plasma potassium me asurement (moles/volume)Ordered By: Edenilson Garces on 05-25-2022 Potassium [Moles/Vol] 3.3 mmol/L 3.5-5.1 [facility] Serum or plasma sodium measu rement (moles/volume)Ordered By: Edenilson Garces on 05-25-2022 Sodium [Moles/Vol] 138 mmol/L 138-145 [facility] Serum or plasma total biliru bin measurement (mass/volume)Ordered By: Edenilson Garces on 05-25-2022 Bilirubin [Mass/Vol] 0.6 mg/dL 0.3-1.2 [facility] Serum or plasma total carbon dioxide measurement (moles/volume)Ordered By: Edenilson Garces on 05-25-2022 CO2 [Moles/Vol] 24.7 mmol/L 22.0-30.0 [facility] Serum or plasma urea nitroge n measurement (mass/volume)Ordered By: Edenilson Garces on 05-25-2022 Urea nitrogen [Mass/Vol] 4 mg/dL 9-23 [facility] Specific gravity Auto test s trip (U) [Rel density]Ordered By: Edenilson Garces on 05-25-2022 Specific gravity (U) [Rel density] 1.006 1.001-1.03 0 [facility] Squamous epithelial cells de tection in urine sediment by light microscopyOrdered By: Edenilson Garces on 05-25-2022 Epithelial cells.squamous LM Ql (Urine sed) 5-9 [HPF] 0-2 [facility] Urine bacteria detection by automated methodOrdered By: Edenilson Garces on 05-25-2022 Bacteria Auto Ql (U) 1+ None Seen [facility] Urine clarity by refractomet ry automatedOrdered By: Edenilson Garces on 05-25-2022 Clarity Refractometry automated (U) Cloudy Clear [facility] Urine cocaine detectionOrder ed By: Edenilson Garces on 05-25-2022 Cocaine Ql (U) Negative Negative [facility] Urine glucose measurement by automated test strip (mass/volume)Ordered By: Edenilson Garces on 05-25-2022 Glucose Auto test strip (U) [Mass/Vol] Normal mg/dL Normal [facility] Urine hemoglobin detection b y automated test stripOrdered By: Edenilson Garces on 05-25-2022 Hemoglobin Auto test strip Ql (U) 1+ Negative [facility] Urine leukocyte esterase det ection by automated test stripOrdered By: Edenilson Garces on 05-25-2022 Leukocyte esterase Auto test strip Ql (U) 3+ Negative [facility] Urobilinogen Auto test strip (U) [Mass/Vol]Ordered By: Edenilson Garces on 05-25-2022 Urobilinogen (U) [Mass/Vol] Normal mg/dL Normal [facility] pH Auto test strip (U)Ordere d By: Edenilson Garces on 05-25-2022 pH (U) 6.5 [pH] 5.0-9.0 [facility] Clinical Event Note-Guardian Contacton 08-22-2020 [...] 14:00 by Twila Aviles ( (Resident)) Normal [facility] Daily Progress Note - Child Psychiatryon 08-22-2020 [...] to admission. Objective: Objective Information: T PRBPSpO2 [id number]/7097% Date/Time08/22 8: 8: 8: 8: 8:00 Range(36.6C [...] previously admitted to a psychiatric facility in [place], but no medications had been started. Upon [...] attendance attending physician, fellow, charge nurse and licensed master social worker. The following topics were discussed during rounds [...] the note. I personally evaluated the patient [id number] Electronic Signatures: Melissa Arauoj) (Signed 22-Aug-2020 18:26) Authored: Assessment and Plan, Multidisciplinary Rounding, Note Completion Co-Signer: Subjective Data, Objective, Assessment and Plan, Medication Consent, Note Completion Twila Aviles (Resident)) (Signed 22-Aug-2020 14:15) Authored: Subjective Data, Objective, Assessment and Plan, Medication Consent, Note Completion Last Updated: 22-Aug-2020 18:26 by Melissa Araujo) [facility] Clinical Event Note-Guardian Contacton 08-21-2020 Clinical [...] Updated: 21-Aug-2020 15:21 by Twila Aviles (Resident)) [facility] Clinical Event Note-SAFE-T A ssessmenton 08-21-2020 [...] Things - Anyone or Anything (e.g. family, nondenominational, pain of ) - That Stopped You [...] 21-Aug-2020 15:47 by Twila Aviles (Resident)) Normal [facility] Daily Progress Note - Child Psychiatryon 08-21-2020 [...] on 08/20. Objective: Objective Information: T PRBPSpO2 [id number]/6598% Date/Time08/21 11: 11: 11: 11: 11:04 Range(36.3C [...] previously admitted to a psychiatric facility in [place], but no medications had been started. Upon [...] in attendance attending physician, fellow, charge nurse, licensed master social worker, recreational therapy and parent/guardian. The following topics [...] the note. I personally evaluated the patient [id number] Electronic Signatures: Melissa Araujo) (Signed 21-Aug-2020 19:17) Authored: Multidisciplinary Rounding, Note Completion Co-Signer: Subjective Data, Objective, Assessment and Plan, Medication Consent, Note Completion Twila Aviles (Resident)) (Signed 21-Aug-2020 17:54) Authored: Subjective Data, Objective, Assessment and Plan, Medication Consent, Note Completion Last Updated: 21-Aug-2020 19:17 by Melissa Araujo) Normal [facility] ACETAMINOPHENon 08-20-2020 Acetaminophen [Mass/Vol] Canceled Normal [facility] Comment on above: Order Comment: TEST ACETAMINOPHEN WAS CANCELLED, 08/20/2020 07:01 Performed By: #### A CETA #### [facility] [id number] [place] [address] Clinical Event Note-Consento n 08-20-2020 Clinical Event Note-Consent Clinical Event: Clinical Event Note: TopicConsent Details Technology Advisor spoke with Guardian/ Sister (Misty) to seek [...] 16:13 by Eros Carver ( (Fellow)) Normal [facility] Discharge Planning [id number] 08-20-2020 Discharge Planning Note2 Discharge Planning: Anticipated Discharge [id number] Discharge Planning 08.19.2020 [facility] Admission 17:59 18:00pm SOCIAL WORK NOTE- SW faxed precert request to [facility]. Erin Reed [facility] ext [phone] 08.20.2020 09:30am SOCIAL WORK NOTE - SW Goal: Sw to gather collateral from patient and guardians in order to set up appropriate follow up. Patient to participate in discharge planning with sw providing psychoeducation to pt. Patient to be able to identify 2-3 protective factors and outpatient services by 08.23.2020 Erin Reed [facility] ext [phone] 10:30am SOCIAL WORK NOTE. SW engaged the pt in group programming. Refer to programming/ behavioral flowsheet for additional information. Erin Reed [facility] ext [phone] 12:00pm SW met with pt to obtain collateral. Refer to psychiatric assessment for additional information. Erin Reed [facility] ext [phone] 15:13 SW spoke with pts guardian, her sister, Misty Hughes, at [phone], to obtain collateral. She stated that she is on the other line with the doctor and will call this worker back. End of phone call. Erin Reed [facility] ext [phone] 08.21.2020 11:30am SOCIAL WORK NOTE- SW received fax from [facility] stating the pt has a different primary insurance. SW to speak with pts sister about insurance and clarify . Erin Reed [facility] ext [phone] 13:35 SOCIAL WORK NOTE SW spoke with pts guardian, her sister, Misty Hughes, at [phone], to obtain collateral. Refer to narrative note/ psych assessment for additional information. She stated that the pt only has [facility] and no other insurance. Erin Reed [facility] ext [phone] 14:00pm SOCIAL WORK NOTE - SW called [facility] at [phone]. REBECCA confirmed the pts follow up with her therapist. [facility] asked that the SW fax over the H&P, Psychiatric assessment, and discharge paperwork to their fax the day before expected discharge so they can coordinate her discharge follow up appointments. She stated that they will schedule the follow up appointments with the [facility] SW after they receive the paperwork. Erin Reed [facility] ext [phone] 14:10 SOCIAL WORK NOTE- SW faxed pre cert to [facility] informing them that the pt does not have alternate insurance and requesting authorization for inpatient admission. 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 Rebecca spoke with guardian about calling CPS to assist as an overwhelmed guardian. Guardian was receptive and stated that she will call. SW will continue to follow patient for further discharge needs. Shelley Gonzales [facility] ext. [phone] 14:57 SOCIAL WORK NOTE: SW received [facility] authorization approving 5 days of admission, starting 08/19 through 08/23. [employer] updated.-Kamilla Burch [facility] 08.23.2020 09:40am SOCIAL WORK NOTE - Team notes. Pt appears to be bright and doing well in groups. Pt to be discharged today. Erin Reed [facility] ext [phone] 10:00am SOCIAL WORK NOTE- REBECCA called pts Misty fisher, . REEBCCA LVM in attempt to coordinate discharge. Erin Reed [facility] ext [phone] 10:06am SOCIAL WORK NOTE- REBECCA faxed clinical to [facility]. [facility] [phone] 10:30am SOCIAL WORK NOTE- REBECCA spoke with the pts guardian, Misty [phone]. REBECCA coordinated discharge with her for 11:30am. Erin Reed [facility] ext [phone] Assessment: Discharge Planning Assessment [id number] Primary Contact Name and NumberAmbsahara Hughes [phone](1) Stated Reason for Admissionpatient stated she is very sad and feels alone in the world.(1) [facility] (1) Resource/Environmental Concernsnone(1) [place]ticip[place]) Services Anticipated at Transitioncommunity agency; mental health services(1) Nursing Checklist: Discharge Med Rec Reconciled with Bahman Patient has Prescriptionsyes Transportation for Discharge Confirmedyes Follow up Reviewedyes Discharge Instructions Reviewed WithPatient and Family Member Discharge Instructions Outcomeverbalize recall/understanding Discharge Instructions Review Completed with Patient/Family (diet, activity, pt instructions)yes Discharge Documentation: Discharge/Transfer Date/[id number] 11:58 Discharge Modeambulatory Discharged Accompanied Byguardian Transportation [...] Profile - Pediatric v2 19-Aug-2020 18:28 Normal [facility] Discharge [id number] Discharge Profile2 Discharge Orders: Anticipated Discharge Date: Anticipated Discharge [id number] Problem List: Additional Dx: Current severe episode [...] and Family: Nationwide Suicide Hotline - 1 (180) SUICIDE ([phone]) Successful Interventions during Inpatient Hospital Stay: daily routine/ structure, group programming, parenting strategies/ education This patient is being discharged on multiple antipsychotic medications: no: Take all medications until outpatient provider advises otherwise. Provider FINAL REVIEW of Orders: Final Review: Final Review of Medication Reconciliation and Orders Completedby Physician Reviewing ProviderMelissa Araujo MD at 23-Aug-2020 08:47:48 Appointments: Follow-Up Appointment 01: Physician/Dept/[facility] Alicia De Luna Reason for ReferralCounseling Scheduled Date/Pnbr94-[id number]-4564 13:00 LocationIn Person Appointment [address] [place] [address] Phone NumberMain: [phone] Follow-Up Appointment 02: Physician/Dept/[facility] Reason for ReferralPsychiatry [address] [place] [address] Phone NumberMain: [phone] Follow-Up Appointment 03: Physician/Dept/[facility] Reason for ReferralCase Management/ Discharge Coordination [id number] [place] [address] Phone NumberMain: [phone] Electronic Signatures: Melissa Araujo) (Signed 23-Aug-2020 08:47) Authored: Discharge Orders, Psychiatric Continuing Care Plan, Provider FINAL REVIEW of Orders Erin Reed (REBECCA) (Signed 21-Aug-2020 14:03) Authored: Discharge Orders, Appointments, Gold Form - Reel Fed Printer Summary Last Updated: 23-Aug-2020 08:47 by Melissa Araujo) Normal [facility] History and Physical - Child Psychiatryon 08-20-2020 History and Physical - Child Psychiatry History of Present Illness: /Lactating: Are You no (1) Are You Currently Breastfeedingno (1) HPI: 14 yr old female admitted as a transfer from [facility] secondary to a Tylenol ingestion was [...] 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 Reports daily worry about everything. She reports [...] not her when she was admitted to [facility]. Reports she last cut over year [...] Physician- Sister is legal guardian: Misty Hughes ([phone], work number [phone]) who reported that the patient recently was [...] see a psychiatrist for a while through [facility] but no medications were tried other than melatonin for sleep and the patient has had the same therapist (scheduled appointments but not seen as frequently (Alicia Palmer [facility]). The patient had reportedly told her [...] Psychiatric History: One psychiatric admission- previously in [place] in Jun,/2017 History of SI/SA and SIB, last cut [...] born when family was living in homeless intermediate, and they had been moving constantly, switched [...] was over the summer, Job- previously in [employer] in the [employer] School History: 9th grade no IEP or [employer], physically going to school now, which [...] Hallucinations Objective Information: Objective Information: T PRBPSpO2 [id number]/6498% Date/Time08/19 17:/ 17: 17: 17:001/ 17:00 Range(36.4C - 36.8C ) (62 - [...] deltoid, biceps, triceps, quadriceps, and hamstrings. Cerebellar: Pnrajd-lg-rppe and tedw-ke-akrs test normal bilaterally. Balances with eyes closed [...] previously admitted to a psychiatric facility in [place], but no medications had been recommended and has a therapist through [facility]. Has had ongoing issues with impulsivity, sexually [...] point and reported the ED physician in [facility] stated patient had taken a lethal dose. [...] the note. I personally evaluated the patient [id number] Attending Provider Inpatient Certification StatementI certify this patients need for inpatient care based on the above documentation including; the order to admit as inpatient, the anticipated length of stay, diagnosis, problem list and plan of care, and discharge plan. Admission Order - View OnlyCurrent Admission Order. [facility] Admitting Diagnosis, T39.1X1A Tylenol ingestion;T50.902A Suicide attempt by drug ingestion Level of Care, Med/Surg Admitting Service : Consultation Referral Peds Cassidy Kenny Admission Order Certification order has been placed by Mariebl Loera Electronic Signatures: Gaurang Cook) (Signed 21-Aug-2020 [...] Profile - Pediatric v2 19-Aug-2020 18:28 Normal [facility] TSH WITH REFLEX TO FREE T4 I F ABNORMALon 08-20-2020 TSH Qn 1.59 m[IU]/L Normal 0.44 - 3.98 [facility] Comment on above: Result Comment: TSH testing is performed using different testing methodology at [facility] than at other [facility]. Direct result comparisons should only be made within the same method. Performed By: #### T HYDS ####[id number] [place] [address] VITAMIN D, 25-HYDROXYon 07-29 VITAMIN D, 25-HYDROXY 27 ng/mL Abnormal [facility] Comment on above: Result Comment: . DEFICIENCY: < 20 NG/ML INSUFFICIENCY: 20-29 NG/ML SUFFICIENCY: 30-100 NG/ML THIS ASSAY ACCURATELY QUANTIFIES THE SUM OF VITAMIN D3, 25-HYDROXY AND VIT D2,25-HYDROXY. Performed By: #### V TDOH ####[id number] [place] [address] ACETAMINOPHENon 08-19-2020 Acetaminophen [Mass/Vol] <10.0 Normal 5.0 - 20.0 [facility] Comment on above: Performed By: #### A CETA #### [facility] [address] [place] [address] Admission Risk Screen - Pedi atricon 08-19-2020 [...] Able to be Assessed for Learningyes Educational [id number] grade Factors Influence Readiness to Learnnone, ready to learn, depression Factors Impact Ability to Learnnone Devices/Methods Used to Communicatenone Learning Preferencesaudio, computer/internet, individual instruction, verbal instruction Cultural Considerationsnone Developmental Considerationsnone Mu-Ism Considerationsnone Other Learnerslegal guardian Learning Assessment (Other [...] and Shear(4) no apparent problem Mack Q Infant: Nutrition(4) excellent Mack Q Infant: Tissue Perfusion [...] from Pastoral Careno Would you like your Ward Clerk/Marine Equipment Preservation Inspector notifiedno [facility]: Screen patients 10 yo and [...] to do anything to end your lifeno [place] Suicide Riskmoderate Optional Screens: Smoking Screen: Patient: Smoking within past 12 monthsno Anyone living in the home: Smoking within past 12 monthsno Tobacco Cessation Education (provide if tobacco used w/i last 12 months)not applicable Significant Indicatiors: Significant Indicators: Complete Electronic Signatures: Bradley Berry (ANNY) (Signed 19-Aug-2020 18:27) Authored: Admission Screens, Pressure Injury, Optional Screens Last Updated: 19-Aug-2020 18:27 by Bradley Berry (ANNY) Normal [facility] COAGULATION SCREENon 021 aPTT Coag (Bld) [Time] 25 s Normal 25 - 35 [facility] Comment on above: Result Comment: THE APTT IS NO LONGER USED FOR MONITORING UNFRACTIONATED HEPARIN THERAPY. FOR MONITORING HEPARIN THERAPY, USE THE HEPARIN ASSAY. Performed By: #### C OAGS #### [facility] [address] [place] [address] INR Coag (PPP) [Relative time] 1.3 {INR} High 0.9 - 1.1 [facility] Comment on above: Performed By: #### C OAGS #### [facility] [address] [place] [address] PT Coag (PPP) [Time] 14.9 s High 10.1 - 13.3 [facility] Comment on above: Performed By: #### C OAGS #### [facility] [address] [place] [address] Consult - Child Psychiatryon 08-19-2020 Consult - Child Psychiatry Consult Referral Information: Consult requested by (Attending Name): Dr. Kimi Cruz Reason: suicidal ideation/attempt History of Presenting Illness: HPI: 14 yr old female admitted as a transfer from [facility] secondary to a Tylenol ingestion was [...] not her when she was admitted to [facility]. Reports she last cut over year [...] tomorrow. Sister is legal guardian: Misty Farmerkingston ([phone], work number [phone]) who reported that the patient recently was [...] see a psychiatrist for a while through [facility] but no medications were tried other than melatonin for sleep and the patient has had the same therapist (scheduled appointments but not seen as frequently (Alicia Palmer [facility]). The patient had reportedly told her [...] Psychiatric History: One psychiatric admission- previously in [place] in Jun,/2017 History of SI/SA and SIB History of [...] born when family was living in homeless intermediate, and they had been moving constantly, switched [...] was over the summer, Job- previously in [employer] in the [employer] School History: 9th grade no IEP [...] previously admitted to a psychiatric facility in [place], but no medications had been recommended and has a therapist through [facility]. Has had ongoing issues with impulsivity, sexually [...] point and reported the ED physician in [facility] stated patient had taken a lethal dose. [...] the note. I personally evaluated the patient [id number] Comments/ Additional Findings 14 year old with [...] Updated: 20-Aug-2020 07:37 by Gaurang Cook) Normal [facility] Consult - Child Psychiatry This report has been cancelled. Normal [facility] Daily Progress Note - Peds-G eneral Pediatricson [...] ----- Mn/Dy/Year TimeIntakeOutputNet Aug 19, 2020 2:00 [id number] Aug 19, 2020 6:00 [id number] Aug 18, 2020 10:00 [id number] The Intake and Output Totals for the [...] post activated charcoal and gastric lavage at [facility] ED and has completed the 21 hour [...] Suicide precautions - 1:1 sitter - Misty Derome, sister/guardian, provided psychiatry evaluation consent [ ] Psych consult today Patient seen and discussed with Dr. Yeny Morales MD PGY-1, Internal Medicine-Pediatrics [facility]. Signature/Cosignature/Atte station: Note Completion: I am a: [...] the following I personally evaluated the patient [id number] Comments/ Additional Findings Completed NAC with normalization of labs. Medically cleared for psych evaluation and anticipate transfer to inpatient psychiatry unit for additional treatment. Electronic Signatures: Gabrielle Wise) (Signed 20-Aug-2020 11:01) Authored: Note Completion Co-Signer: Assessment/Plan, Note Completion Jose Morales (Resident)) (Signed 19-Aug-2020 18:44) Authored: Service, Subjective Data, Nutrition, Objective Data, Assessment/Plan, Note Completion Last Updated: 20-Aug-2020 11:01 by Gabrielle Wise) Normal [facility] HEPATIC FUNCTION PANELon Albumin [Mass/Vol] 4.0 g/dL Normal 3.4 - 5.0 [facility] Comment on above: Performed By: #### H EPFP #### [facility] [address] [place] [address] ALP [Catalytic activity/Vol] 58 U/L Normal 52 - 239 [facility] Comment on above: Performed By: #### H EPFP #### [facility] [address] [place] [address] ALT [Catalytic activity/Vol] 15 U/L Normal 3 - 28 [facility] Comment on above: Result Comment: Val ents treated with Sulfasalazine may generate falsely decreased results for ALT. Performed By: #### H EPFP #### [facility] [address] [place] [address] AST [Catalytic activity/Vol] 19 U/L Normal 9 - 24 [facility] Comment on above: Performed By: #### H EPFP #### [facility] [address] [place] [address] Bilirubin [Mass/Vol] 0.4 mg/dL Normal 0.0 - 0.9 [facility] Comment on above: Performed By: #### H EPFP #### [facility] [address] [place] [address] Bilirubin.direct [Mass/Vol] 0.1 mg/dL Normal 0.0 - 0.3 [facility] Comment on above: Performed By: #### H EPFP #### [facility] [address] [place] [address] Protein [Mass/Vol] 6.5 g/dL Normal 6.2 - 7.7 [facility] Comment on above: Performed By: #### H EPFP #### [facility] [address] [place] [address] Measurementson 08-19-2020 Measurements Weight: Weight in kg48.6 kilogram(s) Weight Methodstated Height: Height in cm167 centimeter(s) Height Methodstated Djiboutian Unit Translation (pounds, inches): Measurement Djiboutian Unit Translations (Adult only): Weight in xik598.144 pound(s) Electronic Signatures: Bradley Berry (ANNY) (Signed 19-Aug-2020 18:17) Authored: Weight, Height, Djiboutian Unit Translation (pounds, inches) Last Updated: 19-Aug-2020 18:17 by Bradley Berry (ANNY) Normal [facility] Patient Profile - Pediatric v2on 08-19-2020 Patient Profile - Pediatric v2 Profile: Initial Info: How to be AddressedAlyssa Parent NameAmber Derome Spoken Language PreferredEnglish Parental Spoken Language PreferredEnglish Parental Reading Language PreferredEnglish Source of Informationpatient Legal CustodianAmber Valentina Are you currently using the Personal Spacious Health Record or Fyusion Stated Reason for Admissionpatient stated she is very sad and feels alone in the world. Primary Contact Name and NumberAngelineer Valentina [phone] [address] Ordered Visitationno Copy on Chartno Restraining Ordersno Restraining Order Copy on Chartno Legal Guardian Notified of Admissionlegal guardian aware of admission Notify PCPno PCP identified Informed of Patient Visiting Rightsyes Person Authorized to Receive Patient on DischargeAmber Valentina [facility] Patient Belongingsremains with patient Patient Belongings Remaining [...] You Currently Breastfeedingno (1) Relationship/Environ: Living Environment CommentsSisGarcia is legal guardian Resource/Environmental Concernsnone Primary Caregiverlegal guardian; sister Lives Withsister; legal guardian Anticipated [place] Services Anticipated at Transitioncommunity agency; mental health services School/Uk[employer]4gv grade/high school freshman Concerns Regarding School Performance/Peer Relationshipsno Plan for School [facility] teacher made lessons and/or work [...] Health Mgmt, Relationship/Environ, Additional Information Chrystal Lara ([facility] (Signed 21-Aug-2020 08:32) Authored: Relationship/Environ Last Updated: 21-Aug-2020 08:32 by Chrystal Lara ([facility] References: 1. Data Referenced From History and Physical - Peds 18-Aug-2020 14:35 Normal [facility] Clinical Event Note-Consente d for psychiatry evaluationon 08-18-2020 Clinical Event Note-Consented for psychiatry evaluation Clinical Event: Clinical Event Note: TopicConsented for psychiatry evaluation Details Discussed Joanna with legal guardian Misty Hughes [phone], who gave consent for evaluation by psychiatry and, if needed, inpatient psychiatric treatment. Nile Bhakta MD Pediatrics PGY3 SAFE-T: icon high (1) Electronic Signatures: Darian Bhakta (Resident)) (Signed 18-Aug-2020 14:08) Authored: Clinical Event Note, SAFE-T Last Updated: 18-Aug-2020 14:08 by Darian Bhakta (Resident)) References: 1. Data Referenced From Triage - ED Peds 18-Aug-2020 11:35 Normal [facility] History and Physical - Pedso n 08-18-2020 History and Physical - Peds History of Present Illness: /Lactating: Are You no Are You Currently Breastfeedingno History of Present Illness: Admission Reason: Tylenol ingestion, suicide attempt HPI: Joanna is a 14 year old female with history of past suicide attempts who presents on transfer from [facility] ED after suicide attempt via ingestion of Tylenol. [facility] arrived on scene at the patient's home around 730pm yesterday (08/17). Responders noted her to be somewhat disoriented, yelling at officers, and stated that she had ingested >50 Tylenol about 15 minutes prior to officers' arrival. This puts the ingestion around 715pm. She admitted that this was a suicide attempt at the time. At [facility], the ED started gastric decontamination with activated [...] - Acetaminophen: 08/18 @1206am: 182.6 <- 08/17 @1pm: 214.4 - CBC: 6.1 > 13.1 / [...] Provider: Primary Care Provider: Provider RoleProvider Name PrimaryJuanitajasonsahara Darian Dill Allergies: Allergies: No Known Allergies: Medications Prior [...] Sneezing, Swelling Objective: Objective Information: T PRBPSpO2 Value37.28152946/6895% Date/Time08/18 14: 14: 14: 14: 14:16 Range(36.1C [...] post activated charcoal and gastric lavage at [facility] ED and will finish the 21 hour [...] 3 bags per 21hr NAC protocol at [facility] - Currently on bag #3 NAC, ending [...] >1.5 continue - Poison control consulted in [facility] #Suicidal ideation - Suicide precautions - 1:1 [...] residents note I personally evaluated the patient [id number] Attending Provider Inpatient Certification StatementI certify this patients need for inpatient care based on the above documentation including; the order to admit as inpatient, the anticipated length of stay, diagnosis, problem list and plan of care, and discharge plan. Admission Order - View OnlyCurrent Admission Order. [facility] [place] [facility] [facility] Admitting Diagnosis, T39.1X1A Tylenol ingestion;T50.902A Suicide attempt by drug ingestion Level of Care, Med/Surg Admitting Service : Consultation Referral Cassidy Joaquin Electronic Signatures: Cassidy Kenny ( (Resident)) (Signed [...] Updated: 18-Aug-2020 17:26 by Maribel Loera) Normal [facility] Letter - Admission Notificat ion to PCPon 08-18-2020 Letter - Admission Notification to PCP Letter of Admission: Today's Date: 19-Aug-2020. Dear Dr. Darian Cleveland. We would like to inform you that your patient was admitted to [facility] Floor 5 on the following date: 18-Aug-2020. The patient was admitted to the service of [facility] Team with concern for Suicidal Attempt [...] Attending Physician . Electronic Signatures: Erika Perez (KILN HEAD HOUSE OPERATOR) (Signed 19-Aug-2020 09:12) Authored: Admission Letter Shanon Figueroa (DIV SECT) (Signed 18-Aug-2020 12:42) Authored: Admission Letter Last Updated: 19-Aug-2020 09:12 by Erika Perez (KILN HEAD HOUSE OPERATOR) Normal [facility] Measurementson 08-18-2020 Measurements Weight: Med Calc Weight (kg)48.6 kilogram(s) Electronic Signatures: Cassidy Kenny (Resident)) (Signed 18-Aug-2020 14:16) Authored: Weight Last Updated: 18-Aug-2020 14:16 by Cassidy Kenny (Resident)) Normal [facility] COMP METABOLIC PANELon 07-10 Albumin mass conc 4.0 g/dL Normal 3.5-5.7 [facility] Comment on above: Order Comment: Yes: Add to Previous draw if able Performed By: #### 0 0121, [id number], 87093 ####[facility] [place] [address], [facility] ALKALINE PHOSPH 169 IU/L Normal 90-460 [facility] Comment on above: Order Comment: Yes: Add to Previous draw if able Performed By: #### 0 0121, 72717, 06131 ####[facility] [place] [address], [facility] ALT enzyme act/vol 10 U/L Normal 7-52 [facility] Comment on above: Order Comment: Yes: Add to Previous draw if able Performed By: #### 0 0121, 12564, 83484 ####[facility] [place] [address], [facility] AST enzyme act/vol 17 U/L Normal 13-39 [facility] Comment on above: Order Comment: Yes: Add to Previous draw if able Performed By: #### 0 0121, 70719, 22011 ####[facility] [place] [address], [facility] Bilirubin mass conc 0.5 mg/dL Normal 0.3-1.0 [facility] Comment on above: Order Comment: Yes: Add to Previous draw if able Performed By: #### 0 0121, 45901, 86147 ####[facility] [place] [address], [facility] Calcium mass conc 9.3 mg/dL Normal 8.6-10.3 [facility] Comment on above: Order Comment: Yes: Add to Previous draw if able Performed By: #### 0 0121, 76834, 50423 ####[facility] [place] [address], [facility] Chloride molar conc 105 mmol/L Normal 98-107 [facility] Comment on above: Order Comment: Yes: Add to Previous draw if able Performed By: #### 0 0121, 13238, 99261 ####[facility] [place] [address], [facility] CO2 molar conc 26 mmol/L Normal 21-31 [facility] Comment on above: Order Comment: Yes: Add to Previous draw if able Performed By: #### 0 0121, 92764, 29932 ####[facility] [place] [address], [place] Creatinine mass conc 0.60 mg/dL Normal 0.60-1.20 [facility] Comment on above: Order Comment: Yes: Add to Previous draw if able Performed By: #### 0 0121, 09667, 59056 ####[facility] [place] [address], [facility] GFR/1.73 sq M predicted among blacks MDRD vol rate/area (S/P/Bld) Calculation not validated for patients under 18 years Abnormal >60 [facility] Comment on above: Order Comment: Yes: Add to Previous draw if able Performed By: #### 0 0121, 38400, 88524 ####[facility] [place] [address], [facility] GFR/1.73 sq M predicted among non-blacks MDRD vol rate/area (S/P/Bld) Calculation not validated for patients under 18 years Abnormal >60 [facility] Comment on above: Order Comment: Yes: Add to Previous draw if able Performed By: #### 0 0121, [id number], [id number] ####[facility] [place] [address], [place] Glucose mass conc 100 mg/dL Normal 70-100 [facility] Comment on above: Order Comment: Yes: Add to Previous draw if able Performed By: #### 0 0121, [id number], [id number] ####[facility] [place] [address], [place] Potassium molar conc 4.3 mmol/L Normal 3.5-5.1 [facility] Comment on above: Order Comment: Yes: Add to Previous draw if able Performed By: #### 0 0121, [id number], 81360 ####[facility] [place] [address], [facility] Protein mass conc 6.3 g/dL Normal 6.0-8.3 [facility] Comment on above: Order Comment: Yes: Add to Previous draw if able Performed By: #### 0 0121, [id number], [id number] ####[facility] [place] [address], [facility] Sodium molar conc 137 mmol/L Normal 136-145 [facility] Comment on above: Order Comment: Yes: Add to Previous draw if able Performed By: #### 0 0121, 98599, 97749 ####[facility] [place] [address], [facility] Urea nitrogen mass conc 7 mg/dL Normal 7-25 [facility] Comment on above: Order Comment: Yes: Add to Previous draw if able Performed By: #### 0 0121, [id number], 01594 ####[facility] [place] [address], [facility] LIPID PROFILEon 07-10-2018 Cholesterol in HDL mass conc 38 mg/dL Normal 23-92 [facility] Comment on above: Order Comment: Yes: Add to Previous draw if able Result Comment: Slig ht variation in normal range could be due to gender and/or age.HDL CHOLESTEROL REFERENCE RANGE:20 years and older Cardiovascular Risk> or =60 mg/dL [id number] TO 59 mg/dL Low Risk<40 mg/dL High Risk Performed By: #### 0 0121, 07015, 50841 ####[facility] [place] [address], [facility] Cholesterol in LDL mass conc 50 mg/dL Normal 0-130 [facility] Comment on above: Order Comment: Yes: Add to Previous draw if able Result Comment: LDL IS A CALCULATIONLDL IS ONLY VALID IF THE TRIG IS LESS THAN 400. Performed By: #### 0 0121, 81113, 19025 ####[facility] [place] [address], [facility] Cholesterol mass conc 95 mg/dL Low 120-170 [facility] Comment on above: Order Comment: Yes: Add to Previous draw if able Result Comment: CHOL ESTEROL REFERENCE RANGE:20 YEARS AND OLDER CARDIOVASCULAR RISKLess than 200 mg/dl Low [id number] to 239 mg/dl Borderline Edph003 mg/dl and greater High Risk Performed By: #### 0 0121, 66972, 68683 ####[facility] [place] [address], [facility] Cholesterol.total/Chol esterol in HDL mass ratio 2.5 {ratio} Normal .0-4.5 [facility] Comment on above: Order Comment: Yes: Add to Previous draw if able Performed By: #### 0 0121, 94312, 09965 ####[facility] NON-HDL CHOLESTEROL 57 mg/dL Normal [facility] Comment on above: Order Comment: Yes: Add to Previous draw if able Performed By: #### 0 0121, 97589, 66195 ####[facility] [place] [address], [facility] Triglyceride mass conc 34 mg/dL Normal 30-131 [facility] Comment on above: Order Comment: Yes: Add to Previous draw if able Result Comment: TRIG LYCERIDE REFERENCE RANGE:20 YEARS AND OLDER CARDIOVASCULAR RISKLESS THAN 150 mg/dl LOW [id number] TO 199 mg/dl BORDERLINE CSMA116 mg/dl AND GREATER HIGH RISK Performed By: #### 0 0121, [id number], 30557 ####[facility] [place] [address], [facility] VLDL CHOL 7 mg/dL Normal 0-40 [facility] Comment on above: Order Comment: Yes: Add to Previous draw if able Performed By: #### 0 0121, [id number], 93251 ####[facility] SERUM TESTon 07-10 TEST Negative Normal [facility] Comment on above: Order Comment: Yes: Add to Previous draw if able Performed By: #### 4 [id number] ####[facility] [facility] [place] [address], [facility] TOX PANEL URINEon 07-10-2018 50 THC Negative Normal NEGATIVE [facility] Comment on above: Order Comment: No: D o not add to previous draw Performed By: #### 3 1079 ####[facility] BARBITURATES Negative Normal NEGATIVE [facility] Comment on above: Order Comment: No: D o not add to previous draw Performed By: #### 3 1079 ####[facility] [facility] BENZODIAZEPINES Negative Normal NEGATIVE [facility] Comment on above: Order Comment: No: D o not add to previous draw Performed By: #### 3 1079 ####[facility] [facility] COCAINE Negative Normal NEGATIVE [facility] Comment on above: Order Comment: No: D o not add to previous draw Performed By: #### 3 1079 ####[facility] [place] [address], [facility] METHADONE Negative Normal NEGATIVE [facility] Comment on above: Order Comment: No: D o not add to previous draw Performed By: #### 3 1079 ####[facility] [place] [address], [facility] MONO AMPHET Negative Normal NEGATIVE [facility] Comment on above: Order Comment: No: D o not add to previous draw Performed By: #### 3 1079 ####[facility] [facility] [place] [address], [facility] OPIATES Negative Normal NEGATIVE [facility] Comment on above: Order Comment: No: D o not add to previous draw Performed By: #### 3 1079 ####[facility] [facility] [place] [address], [place] PHENCYCLIDINE Negative Normal NEGATIVE [facility] Comment on above: Order Comment: No: D o not add to previous draw Performed By: #### 3 1079 ####[facility] [facility] [place] [address], [facility] TRICYCLICS Negative Normal NEGATIVE [facility] Comment on above: Order Comment: No: D o not add to previous draw Performed By: #### 3 1079 ####[facility] [facility] [place] [address], [facility] TSH3on 07-10-2018 TSH 3RD GENERATION 1.09 uIU/mL Normal 0.34-5.60 [facility] Comment on above: Order Comment: Yes: Add to Previous draw if able Performed By: #### 0 0121, [id number], [id number] ####[facility] [facility] [place] [address], [facility] URINALYSISon 07-10-2018 APPEARANCE CLEAR Normal CLEAR [facility] Comment on above: Order Comment: No: D o not add to previous draw Performed By: #### 1 0008 ####[facility] [facility] [place] [address], [place] BILIRUBIN Negative Normal NEGATIVE [facility] Comment on above: Order Comment: No: D o not add to previous draw Performed By: #### 1 0008 ####[facility] [facility] [place] [address], [place] BLOOD Negative Normal NEGATIVE [facility] Comment on above: Order Comment: No: D o not add to previous draw Performed By: #### 1 0008 ####[facility] [place] [address], [facility] COLOR YELLOW Normal YELLOW [facility] Comment on above: Order Comment: No: D o not add to previous draw Performed By: #### 1 0008 ####[facility] [place] [address], [facility] EPIS MANY Abnormal FEW,OCC,NO NE SEEN [facility] Comment on above: Order Comment: No: D o not add to previous draw Performed By: #### 1 0008 ####[facility] [place] [address], [facility] GLUCOSE Negative Normal NEGATIVE [facility] Comment on above: Order Comment: No: D o not add to previous draw Performed By: #### 1 0008 ####[facility] [place] [address], [facility] INR Coag RelTime (Bld) 0-2 Abnormal NONE SEEN Th e [facility] Comment on above: Order Comment: No: D o not add to previous draw Performed By: #### 1 0008 ####[facility] [facility] [place] [address], [facility] KETONE TRACE Abnormal NEGATIVE [facility] Comment on above: Order Comment: No: D o not add to previous draw Performed By: #### 1 0008 ####[facility] [place] [address], [place] LEUK JOHNATHAN Negative Normal NEGATIVE [facility] Comment on above: Order Comment: No: D o not add to previous draw Performed By: #### 1 0008 ####[facility] [place] [address], [facility] MUCUS THREADS MANY Abnormal NONE SEEN [facility] Comment on above: Order Comment: No: D o not add to previous draw Performed By: #### 1 0008 ####[facility] [place] [address], [place] NITRITE Negative Normal NEGATIVE [facility] Comment on above: Order Comment: No: D o not add to previous draw Performed By: #### 1 0008 ####[facility] [facility] [place] [address], [facility] PH 5.0 Normal 5.0-8.0 [facility] Comment on above: Order Comment: No: D o not add to previous draw Performed By: #### 1 0008 ####[facility] [place] [address], [facility] Protein mass conc Negative Normal NEGATIVE [facility] Comment on above: Order Comment: No: D o not add to previous draw Performed By: #### 1 0008 ####[facility] [facility] [place] [address], [facility] Performed By: #### 3 1079 ####[facility] [facility].[address] SPEC GRAV 1.024 High 1.015-1.02 0 [facility] Comment on above: Order Comment: No: D o not add to previous draw Performed By: #### 1 0008 ####[facility] [facility] [place] [address], [facility] WBC UA 0-2 Abnormal NONE SEEN [facility] Comment on above: Order Comment: No: D o not add to previous draw Performed By: #### 1 0008 ####[facility] [facility] [place] [address], [facility] Vital Signs Date Time Vital Sign Value Performing Clinician Facility 08-31-2024 07:30-0500 Body temperature 98.1 [degF] Darian Cleveland DO Work Phone: [facility] 08-31-2024 07:30-0500 Diastolic blood pressure 67 mm[Hg] Darian Cleveland DO Work Phone: [facility] 08-31-2024 07:30-0500 Heart rate 53 /min Darian Cleveland DO Work Phone: [facility] 08-31-2024 07:30-0500 Respiratory rate 16 /min Darian Haneyer DO Work Phone: [facility] 08-31-2024 07:30-0500 SaO2% (BldA) [Mass fraction] 99 % Darian Cleveland DO Work Phone: [facility] 08-31-2024 07:30-0500 Systolic blood pressure 126 mm[Hg] Darian Cleveland DO Work Phone: [facility] 08-30-2024 14:57-0500 Body height 162.56 cm Darian Cleveland DO Work Phone: [facility] 08-30-2024 09:00-0500 Body weight 47.49 kg Darian Cleveland DO Work Phone: [facility] 05-14-2024 07:16-0400 Body temperature 97.8 [degF] PHYSICIAN NO [facility] 05-14-2024 07:16-0400 Diastolic blood pressure 72 mm[Hg] PHYSICIAN NO [facility] 05-14-2024 07:16-0400 Heart rate 82 /min PHYSICIAN NO [facility] 05-14-2024 07:16-0400 Respiratory rate 16 /min PHYSICIAN NO [facility] 05-14-2024 07:16-0400 SaO2% (BldA) [Mass fraction] 98 % PHYSICIAN NO [facility] 05-14-2024 07:16-0400 Systolic blood pressure 117 mm[Hg] PHYSICIAN NO [facility] 05-14-2024 07:15-0400 Body height 167.64 cm PHYSICIAN NO [facility] 05-14-2024 07:15-0400 Body weight 46.6 kg PHYSICIAN NO [facility] 10-19-2023 15:32-0400 Body temperature 98.7 [degF] PHYSICIAN NO [facility] 10-19-2023 15:32-0400 Diastolic blood pressure 68 mm[Hg] PHYSICIAN NO [facility] 10-19-2023 15:32-0400 Heart rate 73 /min PHYSICIAN NO [facility] 10-19-2023 15:32-0400 Respiratory rate 18 /min PHYSICIAN NO [facility] 10-19-2023 15:32-0400 SaO2% (BldA) [Mass fraction] 98 % PHYSICIAN NO [facility] 10-19-2023 15:32-0400 Systolic blood pressure 117 mm[Hg] PHYSICIAN NO [facility] 10-19-2023 02:43-0400 Body height 167.64 cm PHYSICIAN NO [facility] 10-19-2023 02:43-0400 Body weight 43.1 kg PHYSICIAN NO [facility] 10-03-2023 06:21-0500 Diastolic blood pressure 84 mm[Hg] PHYSICIAN NO [facility] 10-03-2023 06:21-0500 Heart rate 90 /min PHYSICIAN NO [facility] 10-03-2023 06:21-0500 Respiratory rate 20 /min PHYSICIAN NO [facility] 10-03-2023 06:21-0500 SaO2% (BldA) [Mass fraction] 100 % PHYSICIAN NO [facility] 10-03-2023 06:21-0500 Systolic blood pressure 124 mm[Hg] PHYSICIAN NO [facility] 10-03-2023 01:44-0500 Body height 167.64 cm PHYSICIAN NO [facility] 10-03-2023 01:44-0500 Body temperature 98.6 [degF] PHYSICIAN NO [facility] 10-03-2023 01:44-0500 Body weight 45 kg PHYSICIAN NO [facility] 10-01-2023 14:12-0500 Body height 167.64 cm PHYSICIAN NO [facility] 10-01-2023 14:12-0500 Body temperature 97.9 [degF] PHYSICIAN NO [facility] 10-01-2023 14:12-0500 Body weight 45 kg PHYSICIAN NO [facility] 10-01-2023 14:12-0500 Diastolic blood pressure 69 mm[Hg] PHYSICIAN NO [facility] 10-01-2023 14:12-0500 Heart rate 100 /min PHYSICIAN NO [facility] 10-01-2023 14:12-0500 Respiratory rate 17 /min PHYSICIAN NO [facility] 10-01-2023 14:12-0500 SaO2% (BldA) [Mass fraction] 99 % PHYSICIAN NO [facility] 10-01-2023 14:12-0500 Systolic blood pressure 120 mm[Hg] PHYSICIAN NO [facility] 07-26-2023 18:12-0500 Body height 167.64 cm PHYSICIAN NO [facility] 07-26-2023 18:12-0500 Body temperature 98.3 [degF] PHYSICIAN NO [facility] 07-26-2023 18:12-0500 Body weight 42.2 kg PHYSICIAN NO [facility] 07-26-2023 18:12-0500 Diastolic blood pressure 66 mm[Hg] PHYSICIAN NO [facility] 07-26-2023 18:12-0500 Heart rate 76 /min PHYSICIAN NO [facility] 07-26-2023 18:12-0500 Respiratory rate 16 /min PHYSICIAN NO [facility] 07-26-2023 18:12-0500 SaO2% (BldA) [Mass fraction] 98 % PHYSICIAN NO [facility] 07-26-2023 18:12-0500 Systolic blood pressure 131 mm[Hg] PHYSICIAN NO [facility] 06-14-2023 17:11-0500 Diastolic blood pressure 84 mm[Hg] PHYSICIAN NO [facility] 06-14-2023 17:11-0500 Heart rate 97 /min PHYSICIAN NO [facility] 06-14-2023 17:11-0500 Respiratory rate 18 /min PHYSICIAN NO [facility] 06-14-2023 17:11-0500 SaO2% (BldA) [Mass fraction] 100 % PHYSICIAN NO [facility] 06-14-2023 17:11-0500 Systolic blood pressure 121 mm[Hg] PHYSICIAN NO [facility] 06-14-2023 15:21-0500 Body height 167.64 cm PHYSICIAN NO [facility] 06-14-2023 15:21-0500 Body temperature 98 [degF] PHYSICIAN NO [facility] 06-14-2023 15:21-0500 Body weight 43.54 kg PHYSICIAN NO [facility] 06-13-2023 17:35-0500 Body temperature 98.3 [degF] PHYSICIAN NO [facility] 06-13-2023 17:35-0500 Diastolic blood pressure 80 mm[Hg] PHYSICIAN NO [facility] 06-13-2023 17:35-0500 Heart rate 82 /min PHYSICIAN NO [facility] 06-13-2023 17:35-0500 Respiratory rate 22 /min PHYSICIAN NO [facility] 06-13-2023 17:35-0500 SaO2% (BldA) [Mass fraction] 100 % PHYSICIAN NO [facility] 06-13-2023 17:35-0500 Systolic blood pressure 149 mm[Hg] PHYSICIAN NO [facility] 06-13-2023 17:33-0500 Body height 167.64 cm PHYSICIAN NO [facility] 06-13-2023 17:33-0500 Body weight 41.6 kg PHYSICIAN NO [facility] 06-13-2023 13:54-0500 Body height 167.64 cm PHYSICIAN NO [facility] 06-13-2023 13:54-0500 Body temperature 98.3 [degF] PHYSICIAN NO [facility] 06-13-2023 13:54-0500 Body weight 41.9 kg PHYSICIAN NO [facility] 06-13-2023 13:54-0500 Diastolic blood pressure 87 mm[Hg] PHYSICIAN NO [facility] 06-13-2023 13:54-0500 Heart rate 79 /min PHYSICIAN NO [facility] 06-13-2023 13:54-0500 Respiratory rate 20 /min PHYSICIAN NO [facility] 06-13-2023 13:54-0500 SaO2% (BldA) [Mass fraction] 98 % PHYSICIAN NO [facility] 06-13-2023 13:54-0500 Systolic blood pressure 150 mm[Hg] PHYSICIAN NO [facility] 06-12-2023 23:26-0500 Diastolic blood pressure 67 mm[Hg] PHYSICIAN NO [facility] 06-12-2023 23:26-0500 Heart rate 79 /min PHYSICIAN NO [facility] 06-12-2023 23:26-0500 SaO2% (BldA) [Mass fraction] 98 % PHYSICIAN NO [facility] 06-12-2023 23:26-0500 Systolic blood pressure 110 mm[Hg] PHYSICIAN NO [facility] 06-12-2023 21:27-0500 Body height 167.64 cm PHYSICIAN NO [facility] 06-12-2023 21:27-0500 Body weight 41.3 kg PHYSICIAN NO [facility] 06-12-2023 21:26-0500 Body temperature 97.5 [degF] PHYSICIAN [facility] 06-12-2023 21:26-0500 Respiratory rate 20 /min PHYSICIAN [facility] 06-11-2023 15:36-0500 Diastolic blood pressure 81 mm[Hg] Ezequiel Ji [facility] 06-11-2023 15:36-0500 Heart rate 64 /min Ezequiel Garrison [facility] 06-11-2023 15:36-0500 Mean blood pressure 94 mm[Hg] Ezequiel Garrison [facility] 06-11-2023 15:36-0500 Respiratory rate 18 /min Ezequiel Garrison [facility] 06-11-2023 15:36-0500 SaO2% (BldA) [Mass fraction] 99 % Ezequiel Garrison [facility] 06-11-2023 15:36-0500 Systolic blood pressure 120 mm[Hg] Ezequiel Garrison [facility] 06-11-2023 14:32-0500 Heart rate 58 /min Ezequiel Garrison [facility] 06-11-2023 14:32-0500 SaO2% (BldA) [Mass fraction] 99 % Ezequiel Ji [facility] 06-11-2023 14:04-0500 Diastolic blood pressure 67 mm[Hg] Ezequiel Garrison [facility] 06-11-2023 14:04-0500 Heart rate 60 /min Ezequiel Ji [facility] 06-11-2023 14:04-0500 Mean blood pressure 80 mm[Hg] Ezequiel Ji [facility] 06-11-2023 14:04-0500 Respiratory rate 16 /min Ezequiel Ji [facility] 06-11-2023 14:04-0500 SaO2% (BldA) [Mass fraction] 96 % Ezequiel Ji [facility] 06-11-2023 14:04-0500 Systolic blood pressure 107 mm[Hg] Ezequiel Ji [facility] 06-11-2023 13:23-0500 Body temperature 97.7 [degF] Ezequiel Ji [facility] 06-11-2023 13:23-0500 bodymassindex -3.06 kg/m2 Ezequiel Ji [facility] Comment on above: Result Comment: ^~:!ZScore Source -[facility] 06-11-2023 13:23-0500 Diastolic blood pressure 94 mm[Hg] Ezequiel Ji [facility] 06-11-2023 13:23-0500 Heart rate 97 /min Ezequiel Ji [facility] 06-11-2023 13:23-0500 Height/Length Percentile 75.91 1 Ezequiel Ji [facility] Comment on above: Result Comment: ^~:!Percentile Source - [place] 06-11-2023 13:23-0500 Height/Length Z-Score 0.70 1 Ezequiel Ji [facility] Comment on above: Result Comment: ^~:![facility] 06-11-2023 13:23-0500 Respiratory rate 18 /min Ezequiel Ji [facility] 06-11-2023 13:23-0500 Systolic blood pressure 156 mm[Hg] Ezequiel Ji [facility] 06-11-2023 13:23-0500 weight -1.96 1 Ezequiel Ji [facility] Comment on above: Result Comment: ^~:![facility] 06-11-2023 13:23-0500 Weight Percentile 2.49 % Ezequiel Ji [facility] Comment on above: Result Comment: ^~:!Percentile [facility] 06-10-2023 22:03-0500 Body temperature 99.1 [degF] PHYSICIAN [facility] 06-10-2023 22:03-0500 Diastolic blood pressure 57 mm[Hg] PHYSICIAN [facility] 06-10-2023 22:03-0500 Heart rate 62 /min PHYSICIAN [facility] 06-10-2023 22:03-0500 Respiratory rate 18 /min PHYSICIAN [facility] 06-10-2023 22:03-0500 SaO2% (BldA) [Mass fraction] 99 % PHYSICIAN [facility] 06-10-2023 22:03-0500 Systolic blood pressure 105 mm[Hg] PHYSICIAN [facility] 06-10-2023 17:50-0500 Body height 170.18 cm PHYSICIAN [facility] 06-10-2023 17:50-0500 Body weight 41.85 kg PHYSICIAN [facility] 05-26-2022 07:30-0400 Diastolic blood pressure 71 mm[Hg] DO Darian Cleveland Work Phone: [facility] 05-26-2022 07:30-0400 Heart rate 69 /min DO Darian Cleveland Work Phone: [facility] 05-26-2022 07:30-0400 Respiratory rate 18 /min DO Darian Cleveland Work Phone: [facility] 05-26-2022 07:30-0400 SaO2% (BldA) [Mass fraction] 98 % DO Darian Cleveland Work Phone: [facility] 05-26-2022 07:30-0400 Systolic blood pressure 118 mm[Hg] DO Darian Cristofer Work Phone: [facility] 05-25-2022 17:13-0400 Body temperature 98.1 [degF] DO Darian Cleveland Work Phone: [facility] 05-25-2022 17:12-0400 Body height 167.64 cm DO Darian Cleveland Work Phone: [facility] 05-25-2022 17:12-0400 Body weight 49.75 kg DO Darian Cleveland Work Phone: [facility] Encounters Encounter Date Encounter Type Care Provider Facility Start: 03-14-2025 ambulatory Darian Cleveland Facility:[facility] Start: 02-14-2025 End: 02-14-2025 Emergency department patient visit MACIEL VALDEZ [facility] Start: 09-21-2024 ambulatory Facility:[facility] Start: 08-30-2024 Non-patient / Non-visit Cierra Cleveland DO Work Phone: [facility] Work Phone: Start: 08-29-2024 End: 08-31-2024 Evaluation and management of inpatient Darian Grantjasonsahara DO Work Phone: [facility] [place] [address] Work Phone: Start: 08-29-2024 End: 08-31-2024 observation encounter Darian Cleveland DO Work Phone: [facility] Work Phone: Start: 08-29-2024 End: 08-31-2024 ambulatory Griffin Carolyn Facility:[facility] Start: 08-29-2024 Registered Recurring Darian quigley DO Work Phone: [facility] Credible Start: 07-03-2024 Non-patient / Non-visit Cierra Cleveland DO Work Phone: [facility] Physician [facility] Work Phone: Start: 05-24-2024 ambulatory Ty Smith Facility:[facility] Start: 05-14-2024 End: 05-14-2024 Emergency department patient visit PHYSICIAN NO [facility] Work Phone: Start: 10-19-2023 End: 10-19-2023 Emergency department patient visit PHYSICIAN NO [facility] Work Phone: Start: 10-03-2023 End: 10-03-2023 Emergency department patient visit PHYSICIAN NO [facility] Work Phone: Start: 10-01-2023 End: 10-01-2023 Emergency department patient visit PHYSICIAN NO [facility] Work Phone: Start: 08-12-2023 Registered Recurring PHYSICIAN NO [facility] Credible Start: 07-26-2023 End: 07-26-2023 Emergency department patient visit PHYSICIAN NO [facility] Work Phone: Start: 06-14-2023 End: 06-14-2023 Emergency department patient visit PHYSICIAN NO [facility] Work Phone: Start: 06-13-2023 End: 06-13-2023 Emergency department patient visit PHYSICIAN NO [facility] Work Phone: Start: 06-13-2023 End: 06-13-2023 Emergency department patient visit PHYSICIAN NO [facility] Work Phone: Start: 06-12-2023 End: 06-13-2023 Emergency department patient visit PHYSICIAN NO [facility] Work Phone: Start: 06-11-2023 End: 06-11-2023 Emergency department patient visit Ezequiel AzaleaKarishma Ji [facility] Start: 06-10-2023 End: 06-10-2023 Emergency department patient visit PHYSICIAN NO [facility] Work Phone: Start: 06-10-2023 End: 06-10-2023 Emergency department patient visit PHYSICIAN NO [facility] Work Phone: Start: 11-27-2022 End: 11-27-[address] BRITTANY LAZARO Facility:[facility] Start: 11-14-2022 End: 11-14-2022 ambulatory LAURA DERAS Facility:[facility] Start: 05-25-2022 End: 05-26-2022 Emergency department patient visit DO Darian Cleveland Work Phone: [facility] Start: 05-03-2019 End: 05-03-2019 Patient encounter [...] 05-03-2019 X-ray of left knee Will lavelle Talakatarzynamehul Start: 04-13-2019 Radiologic examinati on of knee Darian Cristofer SARS Antigen (LFIA) DO Blas ramirez Cristofer Work Phone: Plan of Treatment Date Care Activity Detail Author Start: 08-31-2024 [facility] Start: 08-29-2024 Referral to Reel [employer]inter [facility] Start: 08-29-2024 Hospital admission [facility] Start: 05-14-2024 [facility] Start: 06-13-2023 [facility] Start: 06-12-2023 Diagnostic radiograp hy of abdomen [facility] Bacteria identified in Urine by Culture Urine Culture [facility] Patient Education [facility] Work Phone: Patient referral [facility] Work Phone: Payers Date Payer Category Payer Self-pay [id number] 2005 Unknown [id number] 1959 Unknown [id number] Unknown [id number] Unknown [id number] Unknown [id number] Unknown Regular Auto/Liability [id number] Unknown [id number] Unknown [id number] Unknown [id number] Unknown [id number] Worker's Compensation [id number] Social History Date Type Detail Facility Start: 10-28-2018 End: 06-14-2023 Tobacco smoking status NHIS Never smoked tobacco (finding) [facility] Start: 2005 Sex Assigned At Female [facility] Tobacco [facility] Comment on above: denies Tobacco smoking status No Smoking Status Entered [facility] Sex Assigned At Female [facility] Start: 07-26-2023 Tobacco smoking status NHIS Ex-smoker (finding) [facility] Start: 10-19-2023 End: 08-30-2024 Tobacco smoking status NHIS Smoker (finding) [facility] Start: 08-31-2024 Sex Female (finding) [facility] NEGATED: Highlighted row [facility] Goals Date Patient Goal Desired Activity /State Functional Status Date Assessment Result Facility 08-31-2024 Functional status Patient at Baseline [facility] Work Phone: 06-11-2023 Functional Status N/A [facility] Mental Status Date Assessment Result Facility 08-31-2024 Cognitive function Cognitive Sta tus Patient at Baseline [facility] Work Phone: History and physical note 08-30-2024 Note Date & Type Note Facility 08-30-2024 History and physi lottie note Note Date/Time August 30, 2024 2:24pm [facility] [address] [place] [address] Psychiatry H&P Signed Patient: Joanna Hughes MR#: [id number] : 2005 Acct:[id number] Age/Sex: 18 / F Adm Date: 5 Loc: 1S Room: 9K8628-2 Type: ADM IN Attending Dr: Griffin Leon [...] confirmed this with the medical student as notedbelbianka. Patient presenting due to concern for depression [...] Positive for past suicide attempt Previous medications: Abilify Family History: States her father and brother [...] homicidality, suicidal ideation Insight: Impaired Judgment: Fair? [facility] Medical History (Updated 08/30/24 @ 14:24 by [...] for building coping skills. Documented By: Stevie dAan MD 08/30/24 1157 Signed By: <Electronically signed by Stevie Adan MD> 08/30/24 6671 [facility] Work Phone: History and physical note 08-30-2024 Note Date & Type Note Facility 08-30-2024 History and physi lottie note [facility] Evaluation note 08-29-2024 Note Date & Type Note Facility 08-29-2024 Evaluation note Diagnosis Onset Date Resolution Depression acute August 29, 2024 3:20pm [facility] Work Phone: Hospital Discharge instructions 07-26-2023 Note [...] redness swelling drainage or any other concerns [facility] Work Phone: Hospital Discharge instructions 06-11-2023 Note Date & Type Note Facility 06-11-2023 Hospital Discharg e instructions Patient Education 06/11/2023 15:16:31 Viral Gastroenteritis, Adult, [id number] Viral Gastroenteritis, Adult Viral gastroenteritis is also [...] than 2 years. Living in a senior care. Going on cruise ships. What are the [...] cannot use soap and water, use hand consultant education. Make sure that all people in your home wash their hands well and often. Take kwke-mtn-exhgvqe and prescription medicines only as told by [...] cannot use soap and water, use hand consultant education. This information is not intended to replace advice given to you by your health care provider. Make sure you discuss any questions you have with your health care provider. Document Revised: 05/13/2022 Document Reviewed: 05/13/2022 [employer] Patient Education 2022 [employer]. Follow Up Care 06/11/2023 13:22:35 With:JOSELUIS MENDEZ DO, FAM Address: When:2 to 4 days Comments:Call today to schedule your follow up [facility] Evaluation + Plan note 06-11-2023 Note Date & Type Note Facility 06-11-2023 Evaluation + Plan note Extrac [place] from: Title:ED Note Author:Shelbi Michaud PA-C Date :06/11/23 1. Enteritis (K52.9: Noninfe ctive gastroenteritis and colitis, unspecified) Ordered: dicyclomine, 10 mg = 1 cap(s), Oral, QID, X 2 day(s), # 8 cap(s), Refills(s) 0, Pharmacy: [id number], 167.6, cm, 06/11/23 13:28:00 EST, Height/Length Dosing, 43.7, kg, 06/11/23 13:28:00 EST, Weight Dosing 2. Cocaine use (F14.90: Cocaine use, unspecified, uncomplicated) Ordered: dicyclomine, 10 mg = 1 cap(s), Oral, QID, X 2 day(s), # 8 cap(s), Refills(s) 0, Pharmacy: [facility], 167.6, cm, 06/11/23 13:28:00 [...] Diagnostic Tests Pending * Urine Culture 06/11/23 [facility] Evaluation note Note Date & Type Note Facility Evaluation note No assessment information availa ble [facility] Work Phone: Hospital course Narrative Note Date & Type Note Facility Hospital course Narrative No data available for this section [facility] Hospital Discharge instructions Note Date & Type Note Facility Hospital Discharge instructions Additional Instructions Return if symptoms are worse or not improved in 24 hours Lots of fluids [facility] Work Phone: Progress note Note Date & Type Note Facility Progress note No data available for this section [facility] Summary Purpose Family History No Family History Records Found Relationship Condition Age at Onset Recorded Date/T kacey Not Specified No pertinent family history Unknown Advance Directives No Advanced Directives Records Found Advance Directive Response Recorded Date/ Time Advance Directives No December 30 5:54pm Advance Directive Response Recorded Date/ Time Advance Directives No December 30 4:54pm Hospital Course Note [id number] Admitted: 07/09/2018 Discharged: 07/13/2018 Date of : 2005 Physician: Maciej Bernstein MD DISCHARGE SUMMARYPRINCIPAL DIAGNOSIS: Mood disorder, not otherwise specified.HISTORY OF PRESENT ILLNESS: This is a 12-year-old female with noprevious psych history comes in after voicing SI to sister and puttingsuperficial cuts on her arms. The patient comes from a [facility], where her 26-year-old sister is the [...] norman Providers: Provider RoleProvider Name ReferringCorrect Info, Josie GallowaySchDarian butlerMelissa Araujo Note Recipients: Correct Info, Needed, Darian [...] section and content) DATE CREATED AUTHOR 07/27/2018 [facility] DATE CREATED AUTHOR AUTHOR'S ORGANIZ ATION 08/23/2020 [facility] DATE CREATED AUTHOR AUTHOR'S ORGANIZ ATION 11/29/2022 [facility] DATE CREATED AUTHOR AUTHOR'S ORGANIZ ATION 09/22/2024 Antony Sauceda [facility] DATE CREATED AUTHOR AUTHOR'S ORGANIZ ATION 02/19/2025 [facility] DATE CREATED AUTHOR AUTHOR'S ORGANIZ ATION 03/15/2025 [facility] Care Teams (unrecognized sec [...] PHYSICIAN NO FAMILY Primary Care Provider Active ERIKA Shaffer-DION Emergency Provider Active Team Status: Inactive Member Role Status Dates PHYSICIAN NO FAMILY Primary Care Provider Active Start: July 26, 2023 End: July 26, 2023 ALIYAH Shaffer Emergency Provider Active Start: July 26, 2023 End: Vlad 30th, 2023 Team Status: Active Member Role Status Dates Darian Cleveland DO Primary Care Provider Acti ve Start: August 12, 2023 Griffin Leon MD Attending Provider Active Start: August 12, 2023 Team Status: Inactive Member Role Status Dates PHYSICIAN NO FAMILY Primary Care Provider Active Start: October 01, 2023 End: October 01, 2023 Maciel Maynard APRN Emergency Provider Active Start: October [...] BE BASED ON THE PRIMARY CLINICAL RECORDS. [facility] [employer] provides no warranty or guarantee of the accuracy or completeness of information in this document.
[2025-04-07 10:39] LABS: Glucose Urine UA NEGATIVE (NEGATIVE)
[2025-04-07 10:41] LABS: HCG Qualitative Urine* NEGATIVE (NEGATIVE)
[2025-04-07 11:02] LABS: Cast Seen? NONE SEEN #/LPF (NONE SEEN); Crystals Seen? None Seen #/HPF (None Seen); Urine Culture Indicated YES-FRMC
[2025-04-07 11:23] VITALS: BP 121/67; PULSE 76; O2SAT 99
--- NOTE | 2025-04-07 14:29 | ED_ITS ---
HPI - URI/Sore Throat General Chief Complaint: Upper Respiratory Infection Stated Complaint: URTI COMPLAINTS Time Seen by Provider: 04/07/25 10:04 Source: patient History of Present Illness HPI Narrative: The patient is coming today with 2 main concern the first 1 is that for the last week and a half she has been having sore throat in addition to congestion and headache The patient has not been trying anything slet-ltd-mtpgwhz for that The patient also mentioned that she have no cough difficulty breathing or any abdominal pain or nausea or vomiting or diarrhea Patient also was here because she has been exposed mostly for chlamydia and she would like to be treated When asked the patient does not give much details if she was exposed to someone who was diagnosed with it or she just have suspicion but she mentioned multiple times that he just here want to be treated The patient also was concerned if she is which I offered her test Related Data Previous Rx's ?Medication ?Instructions ?Recorded doxycycline hyclate 100 mg tablet 100 mg PO BID 7 days #14 tabs 04/07/25 guaifenesin 600 mg tablet, 600 mg PO Q12H PRN congesti on #10 04/07/25 extended release 12 hr (Mucinex) tabs ibuprofen 600 mg tablet 600 mg PO Q8H PRN pain #20 t abs 04/07/25 Allergies Allergy/AdvReac Type Severity Reaction Status Date / Time ondansetron (From Zofran) Allergy Mild Vomiting Verified 12/26/24 07:50 Review of Systems ROS Status of ROS 10 or more systems reviewed and unremark able except as noted in history and below PFSH PFSH Social History Smoking status: Current every day smoker Little interest or pleasure in doing things: not at all Feeling down, depressed, or hopeless: not at all Exam Narrative Exam Narrative: Nurses notes and vital signs reviewed and patient is not hypoxic. General: Well-appearing and in no apparent distress. Skin: Warm, dry, no pallor noted. No rash. Head: Normocephalic, atraumatic. Neck: Supple, non-tender. Eye: Pupils are equal, round and EOMI. No scleral icterus. Ears, Nose, Mouth, and Throat: no nasal mucosal hypertrophy. Oral mucosa is m oist, mild tonsillar erythema, uvula is mid-line Cardiovascular: Regular Rate and Rhythm without murmur, gallop or rub. Respiratory: No accessory muscle use or respiratory distress. Lungs are clear to auscultation, no wheezing, rales or rhonchi Chest Wall: no tenderness Back: No midline thoracic or lumbar vertebral tenderness. No CVA tenderness Musculoskeletal: normal ROM, no calf or popliteal tenderness, no lower extremity edema/swelling GI: Abdomen is soft, non-distended. Normal bowel sounds. No masses appreciated. No tenderness to palpation. No rebound, guarding, or rigidity noted. Neurological: A&O x4. No cranial nerve dysfunction observed. No truncal ataxia. Moves all extremities. Sensation intact. Psychiatric: Cooperative and interactive. Normal mood and affect. Constitutional Vital Signs, click to edit/add: Last Vital Signs Temp 99.1 F 04/07/25 09:57 Pulse 76 04/07/25 11:23 Resp 16 04/07/25 11:23 BP 121/67 04/07/25 11:23 Pulse Ox 99 04/07/25 11:23 O2 Del Method Room Air 04/07/25 11:23 Course Vital Signs Vital signs: Vital Signs Temperature 99.1 F 04/07/25 09:57 Pulse Rate 82 04/07/25 09:57 Respiratory Rate 18 04/07/25 09:57 Blood Pressure 123/67 04/07/25 09:57 Pulse Oximetry 99 04/07/25 09:57 Oxygen Delivery Method Room Air 04/07/25 09:57 Temperature 99.1 F 04/07/25 09:57 Pulse Rate 76 04/07/25 11:23 Respiratory Rate 16 04/07/25 11:23 Blood Pressure 121/67 04/07/25 11:23 Pulse Oximetry 99 04/07/25 11:23 Oxygen Delivery Method Room Air 04/07/25 11:23 MDM - URI/Sore Throat MDM Narrative Medical decision making narrative: test is negative Urinalysis showed no UTI and it was sent for chlamydia and gonorrhea The patient was tested for strep and it was negative Presentation mostly secondary to upper respiratory tract infection symptoms possibly laryngitis for that supportive care including Mucinex and ibuprofen initiated The patient also was treated with doxycycline for possible chlamydia exposure at the patient have vaginal discharge she is denying any rash The patient will be called for the results of the testing in case positive The patient is to follow up with primary care physician in next 2-3 days or to return to the emergency department should any of the signs or symptoms worsen or new symptoms develop. The patient agrees with the following Diagnosis and Treatment plan and the patient will be discharged home. Lab Data Labs: Lab Results 04/07/25 04/07/25 Range/Units 10:18 10:50 Urine Color Lt. yellow (YELLOW) Urine Clarity Clear (CLEAR) Urine pH 6.5 (5.0-9.0) Ur Specific [place] 1.020 (1.005-1.025) Urine Protein Negative (NEG/TRACE) mg/dL Urine Glucose (UA) Negative (NEGATIVE) mg/dL Urine Ketones Negative (NEGATIVE) mg/dL Urine Occult Blood Negative (NEGATIVE) Urine Nitrite Negative (NEGATIVE) Urine Bilirubin Negative (NEGATIVE) Urine Urobilinogen 0.2 (0.2-1.0) EU/dL Ur Leukocyte Esterase Trace A (NEGATIVE) Urine RBC 0-2 (0-2) #/HPF Urine WBC 0-2 A (NONE SEEN) #/HPF Ur Squamous Epith Cells Moderate A (NONE/RARE) #/LPF Urine Crystals None seen (None Seen) #/HPF Urine Bacteria Moderate A (NONE SEEN) #/HPF Urine Casts None seen (NONE SEEN) #/LPF Urine Mucus None seen (NONE SEEN) Ur Culture Indicated? [place] [place] HCG, Qual Negative (NEGATIVE) Streptococcus Screen Negative Discharge Plan Discharge Chief Complaint: Upper Respiratory Infection Clinical Impression: Laryngitis, URTI (acute upper respiratory infection), Exposure to chlamydia Patient Disposition: Home, Self-Care Time of Disposition Decision: 11:14 Condition: Good Prescriptions / Home Meds: New doxycycline hyclate 100 mg tablet 100 mg PO BID 7 Days Qty: 14 0RF ibuprofen 600 mg tablet 600 mg PO Q8H PRN (Reason: pain) Qty: 20 0RF guaifenesin [Mucinex] 600 mg tablet extended release 12hr 600 mg PO Q12H PRN (Reason: congestion) Qty: 10 0RF Print Language: Albanian Instructions: Chlamydia (ED), Laryngitis (ED) Referrals: Physician,Non-Staff, MD [Primary Care Provider] - 1 week Discharge Date/Time: 04/07/25 11:28
[2025-04-09 10:08] LABS: Neisseria gonorrhoeae, NAA Negative (Negative)
== END 2025-04-07 11:28 | disposition home or self-care (01) ==
PROVIDERS: Emergency Provider Emergency Medicine
DX: J04.0 Acute laryngitis (principal); J06.9 Acute upper respiratory infection, unspecified; Z20.2 Contact with and (suspected) exposure to infections with a predominantly sexual mode of transmission; F17.200 Nicotine dependence, unspecified, uncomplicated
CPT/HCPCS: 81001; 84703; 87070; 87086; 87088; 87491; 87591; 87880; 96372; 99284; J1885

== ENCOUNTER 2025-05-08 05:49 | Emergency (ER) | payer SELFPAY ==
[2025-05-08 05:50] VITALS: BP 161/90; PULSE 88; O2SAT 95; BMI 21.3
--- OUTSIDE RECORDS SUMMARY | 2025-05-08 05:55 | XMS_ITS | Patient Health Record ---
Author Organization [facility] Address [address] [place] [address] Care Team Providers Care Crutching Contractor Name Role Phone Kristen Jarvis Primary Care Provider [phone] Reason For Referral No Information Medications Medication SIG (Take, Route, Frequency, Duration) Notes Start Date End Date Status Ibuprofen Childrens 100 MG/5ML Suspension 10 ml as needed Orally every 6 hrs 11/03/2014 Active Omeprazole 20 MG Capsule Delayed Release 1 capsule Orally Once a day; Duration: 30 day(s) 07/05/2014 Not-Taking/PRN Social History Section Notes: NO SMOKE EXPOSURE NO SMOKE EXPOSURE NO SMOKE EXPOSURE NO SMOKE EXPOSURE Problems Problem Type SNOMED Code ICD Code Onset Dates Problem Status W/U Status Risk Notes Problem Constipation (25268118) Unspecified constipation (564.00) Active confirmed Problem Nausea (243410773) Nausea alone (787.02) Active confirmed Problem Generalized abdominal pain (180396640) Abdominal pain,generalized (789.07) Active confirmed Plan Of Treatment No Information Insurance Providers Payer Name Payer Address Payer Phone Subscriber Number Group Number Insured Name Patient Relationship to Insured Coverage Start Date Coverage End Date [employer] -ter[employer] [address] [place] [address] [id number] JOANNA HUGHES Self - [facility] the [facility] [employer]- termed [address] [place] [address] [id number] JOANNA HUGHES Self - patient is the insured Medical (General) History Medical History History ICD Code LEVEL 2
--- NOTE | 2025-05-08 05:56 | ECG_ITS ---
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 Measurements Intervals [place] Rate: 84 P: 73 NM: 164 QRS: 90 QRSD: 78 T: 66 QT: 378 QTc: 420 Interpretive Statements 1100 Sinus rhythm 9110 normal ECG Compared to ECG 12/26/2024 07:55:32 Sinus tachycardia no longer present Electronically Signed On 05-08-2025 7:36:13 EDT by KARRIE RAND M.D.
--- OUTSIDE RECORDS SUMMARY | 2025-05-08 05:56 | XMS_ITS | CCD ---
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 UHCG, ADDONUAPLUS #### [address] Urobilinogen,Urine Normal Normal Normal [facility] Comment on above: Order Comment: Name Collection Type:: Clean-Voided Midstream Performed By: #### G CCHLAMAMP #### [facility] , #### UHCG, ADDONUAPLUS #### [facility] [address] [place] [address] WBC,Urine None Seen Normal 0-4 [facility] Comment on above: Order Comment: Name Collection Type:: Clean-Voided Midstream Performed By: #### G CCHLAMAMP #### [facility] , #### UHCG, ADDONUAPLUS #### [facility] [address] [place] [address] HCG,Urineon 05-14-2024 Beta HCG ( test) Ql (U) Negative Normal [facility] Comment on above: Order Comment: Name Collection Type:: Clean-Voided Midstream Result Comment: PERF ORMED BY: [place] [address] PATHOLOGIST [employer] ASHLEY MARTÍNEZ M.D. Performed By: #### G CCHLAMAMP #### [facility] , #### UHCG, ADDONUAPLUS #### [facility] [address] [place] [address] Alanine aminotransferase [En zymatic activity/volume] in Serum or PlasmaOrdered By: Anthony Abernathy on 10-19-2023 ALT [Catalytic activity/Vol] 33 U/L 7-52 [facility] Albumin [Mass/volume] in Ser um or Plasma by Bromocresol green (BCG) dye binding methoOrdered By: Anthony Abernathy on 10-19-2023 Albumin BCG dye [Mass/Vol] 4.3 g/dL 3.5-5.7 [facility] Alkaline phosphatase [Enzyma tic activity/volume] in Serum or PlasmaOrdered By: Anthony Abernathy on 10-19-2023 ALP [Catalytic activity/Vol] 70 U/L 34-104 [facility] Amphetamine Screen Ql (U)Ord ered By: Anthony Abernathy on 10-19-2023 Amphetamines Ql (U) Positive Negative [facility] Aspartate aminotransferase [ Enzymatic activity/volume] in Serum or PlasmaOrdered By: Anthony Abernathy on 10-19-2023 AST [Catalytic activity/Vol] 68 U/L 13-39 [facility] Automated erythrocytes count in urine sediment (number/area)Ordered By: Anthony Abernathy on 10-19-2023 RBC Auto (Urine sed) [#/Area] None seen [HPF] 0-4 [facility] Automated leukocytes count i n urine sediment (number/area)Ordered By: Anthony Abernathy on 10-19-2023 WBC Auto (Urine sed) [#/Area] 0-1 [HPF] 0-4 [facility] Barbiturates [Presence] in U rine by Screen methodOrdered By: Anthony Abernathy on 10-19-2023 Barbiturates Screen Ql (U) Negative Negative [facility] Basophils Auto (Bld) [#/Vol] Ordered By: Anthony Abernathy on 10-19-2023 Basophils (Bld) [#/Vol] 0.1 10*3/uL 0.0-0.1 [facility] Basophils/100 WBC Auto (Bld) Ordered By: Anthony Abernathy on 10-19-2023 Basophils/100 WBC (Bld) 0.9 % . [facility] Benzodiazepines Screen Ql (U )Ordered By: Anthony Abernathy on 10-19-2023 Benzodiazepines Ql (U) Negative Negative [facility] Benzoylecgonine [Presence] i n Urine by Screen methodOrdered By: Anthony Abernathy on 10-19-2023 Benzoylecgonine Screen Ql (U) Positive Negative [facility] Bilirubin Test strip Ql (U)O rdered By: Anthony Abernathy on 10-19-2023 Bilirubin Ql (U) Negative Negative [facility] Bilirubin.total [Mass/volume ] in Serum or PlasmaOrdered By: Anthony Abernathy on 10-19-2023 Bilirubin [Mass/Vol] 0.5 mg/dL 0.3-1.0 [facility] Calcium [Mass/volume] in Ser um or PlasmaOrdered By: Anthony Abernathy on 10-19-2023 Calcium [Mass/Vol] 9.3 mg/dL 8.6-10.3 [facility] Cannabinoids [Presence] in U rine by Screen methodOrdered By: Anthony Abernathy on 10-19-2023 Cannabinoids Screen Ql (U) Positive Negative [facility] Comment on above: These are unconfirme d results and should not be used for legal purposes. Drug Cut-Off Concentration: AMPH 1000 ng/mL MILADIS 200 ng/mL KIMBERLY 200 ng/mL COCM 300 ng/mL OP 300 ng/mL PCP 25 ng/mL THC 20 ng/mL Carbon dioxide, total [Moles /volume] in Serum or PlasmaOrdered By: Anthony Abernathy on 10-19-2023 CO2 [Moles/Vol] 26.4 mmol/L 21.0-31.0 [facility] Chloride [Moles/volume] in S melissa or PlasmaOrdered By: Anthony Abernathy on 10-19-2023 Chloride [Moles/Vol] 102 mmol/L 98-107 [facility] Color Auto (U)Ordered By: Kristal Abernathy on 10-19-2023 Color (U) Yellow Yellow [facility] Creatinine [Mass/volume] in Serum or PlasmaOrdered By: Anthony Abernathy on 10-19-2023 Creatinine [Mass/Vol] 1.05 mg/dL 0.60-1.20 [facility] Eosinophils Auto (Bld) [#/Vo l]Ordered By: Anthony Abernathy on 10-19-2023 Eosinophils (Bld) [#/Vol] 0.1 10*3/uL 0.0-0.7 [facility] Eosinophils/100 WBC Auto (Bl d)Ordered By: Anthony Abernathy on 10-19-2023 Eosinophils/100 WBC (Bld) 1.0 % . [facility] Erythrocyte distribution wid th Auto (RBC) [Ratio]Ordered By: Anthony Abernathy on 10-19-2023 Erythrocyte distribution width (RBC) [Ratio] 12.6 % 11.9-15.3 [facility] Ethanol [Mass/volume] in Ser um or PlasmaOrdered By: Anthony Abernathy on 10-19-2023 Ethanol [Mass/Vol] mg/dL [facility] Ethanol [Mass/Vol] TNP [facility] Comment on above: Test not performed Globulin Calc (S) [Mass/Vol] Ordered By: Anthony Abernathy on 10-19-2023 Globulin (S) [Mass/Vol] 2.8 g/dL [facility] Glucose [Mass/volume] in Ser um or PlasmaOrdered By: Anthony Abernathy on 10-19-2023 Glucose [Mass/Vol] 72 mg/dL 70-100 [facility] Comment on above: ADA recommended refe rence rangeRandom Glucose Reference Range is dependent on time and content of last meal. Glucose of more than 200 mg/dL in a nonstressed, ambulatory subject supports the diagnosis of Diabetes Mellitus. HCG ( test) IA.rapi d Ql (U)Ordered By: Anthony Abernathy on 10-19-2023 HCG ( test) Ql (U) Negative [facility] Hematocrit Auto (Bld) [Volum e fraction]Ordered By: Anthony Abernathy on 10-19-2023 Hematocrit (Bld) [Volume fraction] 36.1 % 36.0-46.0 [facility] Hemoglobin [Mass/volume] in BloodOrdered By: Anhtony Abernathy on 10-19-2023 Hemoglobin (Bld) [Mass/Vol] 12.5 g/dL 12.0-16.0 [facility] Ketones Auto test strip (U) [Mass/Vol]Ordered By: Anthony Abernathy on 10-19-2023 Ketones (U) [Mass/Vol] Trace Negative [facility] Laboratory - UrinalysisOrder ed By: Anthony Abernathy on 10-19-2023 Hyaline casts LM Ql (Urine sed) None seen [LPF] 0-8 [facility] Leukocytes [#/volume] correc hamlet for nucleated erythrocytes in Blood by Automated counOrdered By: Anthony Abernathy on 10-19-2023 WBC corrected for nucl RBC Auto (Bld) [#/Vol] 9.6 10*3/uL 4.5-13.5 [facility] Lymphocytes Auto (Bld) [#/Vo l]Ordered By: Anthony Abernathy on 10-19-2023 Lymphocytes (Bld) [#/Vol] 2.2 10*3/uL 1.20-4.8 [facility] Lymphocytes/100 WBC Auto (Bl d)Ordered By: Anthony Abernathy on 10-19-2023 Lymphocytes/100 WBC (Bld) 23.4 % . [facility] MCH Auto (RBC) [Entitic mass ]Ordered By: Anthony Abernathy on 10-19-2023 MCH (RBC) [Entitic mass] 30.2 pg 25.0-35.0 [facility] MCHC Auto (RBC) [Mass/Vol]Or dered By: Anthony Abernathy on 10-19-2023 MCHC (RBC) [Mass/Vol] 34.6 g/dL 31.0-37.[address] [facility] MCV Auto (RBC) [Entitic vol] Ordered By: Anthony Abernathy on 10-19-2023 MCV (RBC) [Entitic vol] 87.2 fL 78-102 [facility] Monocyte distribution width [Entitic volume] in Blood by AutomatedOrdered By: Anthony Abernathy on 10-19-2023 Monocyte distribution width Auto (Bld) [Entitic vol] 17.27 % 0.00-20.00 [facility] Monocytes Auto (Bld) [#/Vol] Ordered By: Anthony Abernathy on 10-19-2023 Monocytes (Bld) [#/Vol] 1.0 10*3/uL 0.1-1.00 [facility] Monocytes/100 WBC Auto (Bld) Ordered By: Anthony Abernathy on 10-19-2023 Monocytes/100 WBC (Bld) 10.6 % . [facility] Neutrophils Auto (Bld) [#/Vo l]Ordered By: Anthony Abernathy on 10-19-2023 Neutrophils (Bld) [#/Vol] 6.1 10*3/uL 1.2-7.7 [facility] Neutrophils/100 WBC Auto (Bl d)Ordered By: Anthony Abernathy on 10-19-2023 Neutrophils/100 WBC (Bld) 64.1 % . [facility] Nitrite Test strip Ql (U)Ord ered By: Anthony Abernathy on 10-19-2023 Nitrite Ql (U) Negative Negative [facility] No Panel InformationOrdered By: Anthony Abernathy on 10-19-2023 Estimated GFR (CKD-EPI) > 60.0 mL/Min [facility] Creatinine Clearance (Chem 59.12 [facility] Nucleated erythrocytes [Pres ence] in Blood by Automated countOrdered By: Anthony Abernathy on 10-19-2023 Nucleated RBC Auto Ql (Bld) 0.1 /100{WBC} 0-0.5 [facility] Opiates [Presence] in Urine by Screen methodOrdered By: Anthony Abernathy on 10-19-2023 Opiates Screen Ql (U) Negative Negative [facility] Phencyclidine Screen Ql (U)O rdered By: Anthony Abernathy on 10-19-2023 Phencyclidine Ql (U) Negative Negative [facility] Platelet mean volume Auto (B ld) [Entitic vol]Ordered By: Anthony Abernathy on 10-19-2023 Platelet mean volume (Bld) [Entitic vol] 7.2 fL 6.3-10.7 [facility] Platelets Auto (Bld) [#/Vol] Ordered By: Anthony Abernathy on 10-19-2023 Platelets (Bld) [#/Vol] 387 10*3/uL 150-450 [facility] Potassium [Moles/volume] in Serum or PlasmaOrdered By: Anthony Abernathy on 10-19-2023 Potassium [Moles/Vol] 2.9 mmol/L 3.5-5.1 [facility] Comment on above: Critical Result Call ed to and read back by: MELIZA LA at: 10/19/2023 03:49:32 by: Protein Auto test strip (U) [Mass/Vol]Ordered By: Anthony Abernathy on 10-19-2023 Protein (U) [Mass/Vol] Negative Negative [facility] Protein [Mass/volume] in Ser um or PlasmaOrdered By: Anthony Abernathy on 10-19-2023 Protein [Mass/Vol] 7.1 g/dL 6.4-8.9 [facility] RBC Auto (Bld) [#/Vol]Ordere d By: Anthony Abernathy on 10-19-2023 RBC (Bld) [#/Vol] 4.14 10*6/uL 4.10-5.10 [facility] Serum or plasma albumin/glob ulin mass ratioOrdered By: Anthony Abernathy on 10-19-2023 Albumin/Globulin [Mass ratio] 1.5 {ratio} [facility] Serum or plasma anion gap de terminationOrdered By: Anthony Abernathy on 10-19-2023 Anion gap [Moles/Vol] 12.5 mmol/L 6.0-15.0 [facility] Sodium [Moles/volume] in Ser um or PlasmaOrdered By: Anthony Abernathy on 10-19-2023 Sodium [Moles/Vol] 138 mmol/L 136-145 [facility] Specific gravity Auto test s trip (U) [Rel density]Ordered By: Anthony Abernathy on 10-19-2023 Specific gravity (U) [Rel density] 1.003 1.001-1.03 0 [facility] Squamous epithelial cells de tection in urine sediment by light microscopyOrdered By: Anthony Abernathy on 10-19-2023 Epithelial cells.squamous LM Ql (Urine sed) 5-9 [HPF] 0-2 [facility] Urea nitrogen [Mass/volume] in Serum or PlasmaOrdered By: Anthony Abrenathy on 10-19-2023 Urea nitrogen [Mass/Vol] 17 mg/dL 7-25 [facility] Urine bacteria detection by automated methodOrdered By: Anthony Abernathy on 10-19-2023 Bacteria Auto Ql (U) 1+ None Seen [facility] Urine clarity by refractomet ry automatedOrdered By: Anthony Abernathy on 10-19-2023 Clarity Refractometry automated (U) Clear Clear [facility] Urine glucose measurement by automated test strip (mass/volume)Ordered By: Anthony Abernathy on 10-19-2023 Glucose Auto test strip (U) [Mass/Vol] Normal mg/dL Normal [facility] Urine hemoglobin detection b y automated test stripOrdered By: Anthony Aberntahy on 10-19-2023 Hemoglobin Auto test strip Ql (U) 1+ Negative [facility] Urine leukocyte esterase det ection by automated test stripOrdered By: Anthony Abernathy on 10-19-2023 Leukocyte esterase Auto test strip Ql (U) Negative Negative [facility] Urobilinogen Auto test strip (U) [Mass/Vol]Ordered By: Anthony Abernathy on 10-19-2023 Urobilinogen (U) [Mass/Vol] Normal mg/dL Normal [facility] WBC Auto (Bld) [#/Vol]Ordere d By: Anthony Abernathy on 10-19-2023 WBC (Bld) [#/Vol] 9.6 10*3/uL 4.5-13.5 [facility] pH Auto test strip (U)Ordere d By: Anthony Abernathy on 10-19-2023 pH (U) 6.5 [pH] 5.0-9.0 [facility] Activated partial thrombopla stin time (aPTT) in platelet poor plasma by coagulation aOrdered By: Reji Wu on 10-03-2023 aPTT Coag (PPP) [Time] 27.2 s 25.1-36.5 [facility] Comment on above: A hematocrit value g reater than 55% may lead to inaccurate results in coagulation testing. Patients having hematocrit values >55% require a special collection tube for coagulation studies. Please contact the laboratory at [phone] for redraw instructions. Basophils Auto (Bld) [#/Vol] Ordered By: PROVIDER TEMP on 10-03-2023 Basophils (Bld) [#/Vol] 0.1 10*3/uL 0.0-0.1 [facility] Basophils/100 WBC Auto (Bld) Ordered By: PROVIDER TEMP on 10-03-2023 Basophils/100 WBC (Bld) 1.1 % . [facility] Calcium [Mass/volume] in Ser um or PlasmaOrdered By: Reji Wu on 10-03-2023 Calcium [Mass/Vol] 9.5 mg/dL 8.6-10.3 [facility] Carbon dioxide, total [Moles /volume] in Serum or PlasmaOrdered By: Reji Wu on 10-03-2023 CO2 [Moles/Vol] 25.6 mmol/L 21.0-31.0 [facility] Chloride [Moles/volume] in S melissa or PlasmaOrdered By: Reji Wu on 10-03-2023 Chloride [Moles/Vol] 104 mmol/L 98-107 [facility] Creatine kinase [Enzymatic a ctivity/volume] in Serum or PlasmaOrdered By: Reji Wu on 10-03-2023 CK [Catalytic activity/Vol] 209 U/L 30-223 [facility] Creatinine [Mass/volume] in Serum or PlasmaOrdered By: Reji Wu on 10-03-2023 Creatinine [Mass/Vol] 0.65 mg/dL 0.60-1.20 [facility] Eosinophils Auto (Bld) [#/Vo l]Ordered By: PROVIDER TEMP on 10-03-2023 Eosinophils (Bld) [#/Vol] 0.1 10*3/uL 0.0-0.7 [facility] Eosinophils/100 WBC Auto (Bl d)Ordered By: PROVIDER TEMP on 10-03-2023 Eosinophils/100 WBC (Bld) 1.1 % . [facility] Erythrocyte distribution wid th Auto (RBC) [Ratio]Ordered By: PROVIDER TEMP on 10-03-2023 Erythrocyte distribution width (RBC) [Ratio] 12.3 % 11.9-15.3 [facility] Glucose [Mass/volume] in Ser um or PlasmaOrdered By: Reji Wu on 10-03-2023 Glucose [Mass/Vol] 111 mg/dL 70-100 [facility] Comment on above: ADA recommended refe rence rangeRandom Glucose Reference Range is dependent on time and content of last meal. Glucose of more than 200 mg/dL in a nonstressed, ambulatory subject supports the diagnosis of Diabetes Mellitus. Hematocrit Auto (Bld) [Volum e fraction]Ordered By: PROVIDER TEMP on 10-03-2023 Hematocrit (Bld) [Volume fraction] 42.6 % 36.0-46.0 [facility] Hemoglobin [Mass/volume] in BloodOrdered By: PROVIDER TEMP on 10-03-2023 Hemoglobin (Bld) [Mass/Vol] 14.2 g/dL 12.0-16.0 [facility] INR in Platelet poor plasma by Coagulation assayOrdered By: Reji Wu on 10-03-2023 INR Coag (PPP) [Relative time] 1.0 {INR} [facility] Comment on above: INR Therapeutic Rang [...] RBC Auto (Bld) [#/Vol] 10.1 10*3/uL 4.5-13.5 [facility] Lymphocytes Auto (Bld) [#/Vo l]Ordered By: PROVIDER TEMP on 10-03-2023 Lymphocytes (Bld) [#/Vol] 2.3 10*3/uL 1.20-4.8 [facility] Lymphocytes/100 WBC Auto (Bl d)Ordered By: PROVIDER TEMP on 10-03-2023 Lymphocytes/100 WBC (Bld) 23.1 % . [facility] MCH Auto (RBC) [Entitic mass ]Ordered By: PROVIDER TEMP on 10-03-2023 MCH (RBC) [Entitic mass] 30.0 pg 25.0-35.0 [facility] MCHC Auto (RBC) [Mass/Vol]Or dered By: PROVIDER TEMP on 10-03-2023 MCHC (RBC) [Mass/Vol] 33.4 g/dL 31.0-37.0 [facility] MCV Auto (RBC) [Entitic vol] Ordered By: PROVIDER TEMP on 10-03-2023 MCV (RBC) [Entitic vol] 89.8 fL 78-102 [facility] Monocyte distribution width [Entitic volume] in Blood by AutomatedOrdered By: PROVIDER TEMP on 10-03-2023 Monocyte distribution width Auto (Bld) [Entitic vol] 17.31 % 0.00-20.00 [facility] Monocytes Auto (Bld) [#/Vol] Ordered By: PROVIDER TEMP on 10-03-2023 Monocytes (Bld) [#/Vol] 0.8 10*3/uL 0.1-1.00 [facility] Monocytes/100 WBC Auto (Bld) Ordered By: PROVIDER TEMP on 10-03-2023 Monocytes/100 WBC (Bld) 7.4 % . [facility] Natriuretic peptide B [Mass/ Vol]Ordered By: Reji Wu on 10-03-2023 Natriuretic peptide B (Bld) [Mass/Vol] 3.0 pg/mL 5-100 [facility] Neutrophils Auto (Bld) [#/Vo l]Ordered By: PROVIDER TEMP on 10-03-2023 Neutrophils (Bld) [#/Vol] 6.8 10*3/uL 1.2-7.7 [facility] Neutrophils/100 WBC Auto (Bl d)Ordered By: PROVIDER TEMP on 10-03-2023 Neutrophils/100 WBC (Bld) 67.3 % . [facility] No Panel InformationOrdered By: Reji Wu on 10-03-2023 Estimated GFR (CKD-EPI) > 60.0 mL/Min [facility] Creatinine Clearance (Chem 99.71 [facility] Nucleated erythrocytes [Pres ence] in Blood by Automated countOrdered By: PROVIDER TEMP on 10-03-2023 Nucleated RBC Auto Ql (Bld) 0.1 /100{WBC} 0-0.5 [facility] Platelet mean volume Auto (B ld) [Entitic vol]Ordered By: PROVIDER TEMP on 10-03-2023 Platelet mean volume (Bld) [Entitic vol] 6.9 fL 6.3-10.7 [facility] Platelets Auto (Bld) [#/Vol] Ordered By: PROVIDER TEMP on 10-03-2023 Platelets (Bld) [#/Vol] 432 10*3/uL 150-450 [facility] Potassium [Moles/volume] in Serum or PlasmaOrdered By: Reji Wu on 10-03-2023 Potassium [Moles/Vol] 3.8 mmol/L 3.5-5.1 [facility] Prothrombin time (PT)Ordered By: Reji Wu on 10-03-2023 PT Coag (PPP) [Time] 11.1 s 9.0-12.9 [facility] Comment on above: A hematocrit value g reater than 55% may lead to inaccurate results in coagulation testing. Patients having hematocrit values >55% require a special collection tube for coagulation studies. Please contact the laboratory at [phone] for redraw instructions. RBC Auto (Bld) [#/Vol]Ordere d By: PROVIDER CRISS on 10-03-2023 RBC (Bld) [#/Vol] 4.74 10*6/uL 4.10-5.10 [facility] Serum or plasma anion gap de terminationOrdered By: Reji Wu on 10-03-2023 Anion gap [Moles/Vol] 10.2 mmol/L 6.0-15.0 [facility] Sodium [Moles/volume] in Ser um or PlasmaOrdered By: Reji Wu on 10-03-2023 Sodium [Moles/Vol] 136 mmol/L 136-145 [facility] Troponin I.cardiac [Mass/vol ume] in Serum or Plasma by Detection limit <= 0.01 ng/Ordered By: Reji Wu on 10-03-2023 Troponin I.cardiac DL <= 0.01 ng/mL [Mass/Vol] < 2.3 pg/mL 0.0-15.0 [facility] Urea nitrogen [Mass/volume] in Serum or PlasmaOrdered By: Reji Wu on 10-03-2023 Urea nitrogen [Mass/Vol] 4 mg/dL 7-25 [facility] WBC Auto (Bld) [#/Vol]Ordere d By: PROVIDER CRISS on 10-03-2023 WBC (Bld) [#/Vol] 10.1 10*3/uL 4.5-13.5 [facility] Automated erythrocytes count in urine sediment (number/area)Ordered By: Maciel Maynard on 10-01-2023 RBC Auto (Urine sed) [#/Area] 0-1 [HPF] 0-4 [facility] Automated leukocytes count i n urine sediment (number/area)Ordered By: Maciel Maynard on 10-01-2023 WBC Auto (Urine sed) [#/Area] 1-2 [HPF] 0-4 [facility] Bilirubin Test strip Ql (U)O rdered By: Maciel Maynard on 10-01-2023 Bilirubin Ql (U) Negative Negative [facility] Color Auto (U)Ordered By: Kenji Maynard on 10-01-2023 Color (U) Yellow Yellow [facility] HCG ( test) IA.rapi d Ql (U)Ordered By: Maciel Maynard on 10-01-2023 HCG ( test) Ql (U) Negative [facility] Ketones Auto test strip (U) [Mass/Vol]Ordered By: Maciel Maynard on 10-01-2023 Ketones (U) [Mass/Vol] Negative Negative [facility] Laboratory - UrinalysisOrder ed By: Maciel Maynard on 10-01-2023 Hyaline casts LM Ql (Urine sed) None seen [LPF] 0-8 [facility] Nitrite Test strip Ql (U)Ord ered By: Maciel Maynard on 10-01-2023 Nitrite Ql (U) Negative Negative [facility] Protein Auto test strip (U) [Mass/Vol]Ordered By: Maciel Maynard on 10-01-2023 Protein (U) [Mass/Vol] Negative Negative [facility] Specific gravity Auto test s trip (U) [Rel density]Ordered By: Maciel Maynard on 10-01-2023 Specific gravity (U) [Rel density] 1.010 1.001-1.03 0 [facility] Squamous epithelial cells de tection in urine sediment by light microscopyOrdered By: Maciel Maynard on 10-01-2023 Epithelial cells.squamous LM Ql (Urine sed) 0-1 [HPF] 0-2 [facility] Urine bacteria detection by automated methodOrdered By: Maciel Maynard on 10-01-2023 Bacteria Auto Ql (U) 1+ None Seen [facility] Urine clarity by refractomet ry automatedOrdered By: Maciel Maynard on 10-01-2023 Clarity Refractometry automated (U) Clear Clear [facility] Urine glucose measurement by automated test strip (mass/volume)Ordered By: Maciel Maynard on 10-01-2023 Glucose Auto test strip (U) [Mass/Vol] Normal mg/dL Normal [facility] Urine hemoglobin detection b y automated test stripOrdered By: Maciel Maynard on 10-01-2023 Hemoglobin Auto test strip Ql (U) Negative Negative [facility] Urine leukocyte esterase det ection by automated test stripOrdered By: Maciel Maynard on 10-01-2023 Leukocyte esterase Auto test strip Ql (U) 1+ Negative [facility] Urobilinogen Auto test strip (U) [Mass/Vol]Ordered By: Maciel Maynard on 10-01-2023 Urobilinogen (U) [Mass/Vol] Normal mg/dL Normal [facility] pH Auto test strip (U)Ordere d By: Maciel Maynard on 10-01-2023 pH (U) 8.0 [pH] 5.0-9.0 [facility] Alanine aminotransferase [En zymatic activity/volume] in Serum or PlasmaOrdered By: Oleg Tucker on 06-14-2023 ALT [Catalytic activity/Vol] 18 U/L 7-52 [facility] Albumin [Mass/volume] in Ser um or Plasma by Bromocresol green (BCG) dye binding methoOrdered By: Oleg Tucker on 06-14-2023 Albumin BCG dye [Mass/Vol] 4.8 g/dL 3.5-5.7 [facility] Alkaline phosphatase [Enzyma tic activity/volume] in Serum or PlasmaOrdered By: Oleg Tucker on 06-14-2023 ALP [Catalytic activity/Vol] 52 U/L 32-92 [facility] Aspartate aminotransferase [ Enzymatic activity/volume] in Serum or PlasmaOrdered By: Oleg Tucker on 06-14-2023 AST [Catalytic activity/Vol] 22 U/L 13-39 [facility] Basophils Auto (Bld) [#/Vol] Ordered By: Oleg Tucker on 06-14-2023 Basophils (Bld) [#/Vol] 0.0 10*3/uL 0.0-0.1 [facility] Basophils/100 WBC Auto (Bld) Ordered By: Oleg Tucker on 06-14-2023 Basophils/100 WBC (Bld) 0.4 % . [facility] Bilirubin.total [Mass/volume ] in Serum or PlasmaOrdered By: Oleg Tucker on 06-14-2023 Bilirubin [Mass/Vol] 0.8 mg/dL 0.3-1.2 [facility] Calcium [Mass/volume] in Ser um or PlasmaOrdered By: Oleg Tucker on 06-14-2023 Calcium [Mass/Vol] 9.7 mg/dL 8.2-10.2 [facility] Carbon dioxide, total [Moles /volume] in Serum or PlasmaOrdered By: Oleg Tucker on 06-14-2023 CO2 [Moles/Vol] 23.0 mmol/L 22.0-30.0 [facility] Chloride [Moles/volume] in S melissa or PlasmaOrdered By: Oleg Tucker on 06-14-2023 Chloride [Moles/Vol] 102 mmol/L 95-114 [facility] Creatinine [Mass/volume] in Serum or PlasmaOrdered By: Oleg Tucker on 06-14-2023 Creatinine [Mass/Vol] 0.61 mg/dL 0.44-1.03 [facility] Eosinophils Auto (Bld) [#/Vo l]Ordered By: Oleg Tucker on 06-14-2023 Eosinophils (Bld) [#/Vol] 0.0 10*3/uL 0.0-0.7 [facility] Eosinophils/100 WBC Auto (Bl d)Ordered By: Oleg Tucker on 06-14-2023 Eosinophils/100 WBC (Bld) 0.1 % . [facility] Erythrocyte distribution wid th Auto (RBC) [Ratio]Ordered By: Oleg Tucker on 06-14-2023 Erythrocyte distribution width (RBC) [Ratio] 13.6 % 11.9-15.3 [facility] Globulin Calc (S) [Mass/Vol] Ordered By: Oleg Tucker on 06-14-2023 Globulin (S) [Mass/Vol] 2.8 g/dL [facility] Glucose [Mass/volume] in Ser um or PlasmaOrdered By: Oleg Tucker on 06-14-2023 Glucose [Mass/Vol] 94 mg/dL 70-100 [facility] Comment on above: ADA recommended refe rence rangeRandom Glucose Reference Range is dependent on time and content of last meal. Glucose of more than 200 mg/dL in a nonstressed, ambulatory subject supports the diagnosis of Diabetes Mellitus. Hematocrit Auto (Bld) [Volum e fraction]Ordered By: Oleg Tucker on 06-14-2023 Hematocrit (Bld) [Volume fraction] 40.0 % 36.0-46.0 [facility] Hemoglobin [Mass/volume] in BloodOrdered By: Oleg Tucker on 06-14-2023 Hemoglobin (Bld) [Mass/Vol] 14.0 g/dL 12.0-16.0 [facility] Leukocytes [#/volume] correc hamlet for nucleated erythrocytes in Blood by Automated counOrdered By: Oleg Tucker on 06-14-2023 WBC corrected for nucl RBC Auto (Bld) [#/Vol] 4.9 10*3/uL 4.5-13.5 [facility] Lipase [Enzymatic activity/v olume] in Serum or PlasmaOrdered By: Oleg Tucker on 06-14-2023 Lipase [Catalytic activity/Vol] 75.0 U/L 11.0-82.0 [facility] Lymphocytes Auto (Bld) [#/Vo l]Ordered By: Oleg Tucker on 06-14-2023 Lymphocytes (Bld) [#/Vol] 1.2 10*3/uL 1.20-4.8 [facility] Lymphocytes/100 WBC Auto (Bl d)Ordered By: Oleg Tucker on 06-14-2023 Lymphocytes/100 WBC (Bld) 24.7 % . [facility] MCH Auto (RBC) [Entitic mass ]Ordered By: Oleg Tucker on 06-14-2023 MCH (RBC) [Entitic mass] 30.9 pg 25.0-35.0 [facility] MCHC Auto (RBC) [Mass/Vol]Or dered By: Oleg Tucker on 06-14-2023 MCHC (RBC) [Mass/Vol] 35.0 g/dL 31.0-37.0 [facility] MCV Auto (RBC) [Entitic vol] Ordered By: Oleg Tucker on 06-14-2023 MCV (RBC) [Entitic vol] 88.1 fL 78-102 [facility] Monocytes Auto (Bld) [#/Vol] Ordered By: Oleg Tucker on 06-14-2023 Monocytes (Bld) [#/Vol] 0.5 10*3/uL 0.1-1.00 [facility] Monocytes/100 WBC Auto (Bld) Ordered By: Oleg Tucker on 06-14-2023 Monocytes/100 WBC (Bld) 10.8 % . [facility] Neutrophils Auto (Bld) [#/Vo l]Ordered By: Oleg Tucker on 06-14-2023 Neutrophils (Bld) [#/Vol] 3.1 10*3/uL 1.2-7.7 [facility] Neutrophils/100 WBC Auto (Bl d)Ordered By: Oleg Tucker on 06-14-2023 Neutrophils/100 WBC (Bld) 64.0 % . [facility] No Panel InformationOrdered By: Oleg Tucker on 06-14-2023 Estimated GFR (CKD-EPI) N/A [facility] Creatinine Clearance (Chem 103.66 [facility] Nucleated erythrocytes [Pres ence] in Blood by Automated countOrdered By: Oleg Tucker on 06-14-2023 Nucleated RBC Auto Ql (Bld) 0.1 /100{WBC} 0-0.5 [facility] Platelet mean volume Auto (B ld) [Entitic vol]Ordered By: Oleg Tucker on 06-14-2023 Platelet mean volume (Bld) [Entitic vol] 7.1 fL 6.3-10.7 [facility] Platelets Auto (Bld) [#/Vol] Ordered By: Oleg Tucker on 06-14-2023 Platelets (Bld) [#/Vol] 282 10*3/uL 150-450 [facility] Potassium [Moles/volume] in Serum or PlasmaOrdered By: Oleg Tucker on 06-14-2023 Potassium [Moles/Vol] 3.2 mmol/L 3.5-5.1 [facility] Protein [Mass/volume] in Ser um or PlasmaOrdered By: Oleg Tucker on 06-14-2023 Protein [Mass/Vol] 7.6 g/dL 6.4-8.9 [facility] RBC Auto (Bld) [#/Vol]Ordere d By: Oleg Tucker on 06-14-2023 RBC (Bld) [#/Vol] 4.54 10*6/uL 4.10-5.10 [facility] Serum or plasma albumin/glob ulin mass ratioOrdered By: Oleg Tucker on 06-14-2023 Albumin/Globulin [Mass ratio] 1.7 {ratio} [facility] Serum or plasma anion gap de terminationOrdered By: Oleg Tucker on 06-14-2023 Anion gap [Moles/Vol] 14.2 mmol/L 6.0-15.0 [facility] Sodium [Moles/volume] in Ser um or PlasmaOrdered By: Oleg Tucker on 06-14-2023 Sodium [Moles/Vol] 136 mmol/L 138-145 [facility] Urea nitrogen [Mass/volume] in Serum or PlasmaOrdered By: Oleg Tucker on 06-14-2023 Urea nitrogen [Mass/Vol] 8 mg/dL 9-23 [facility] WBC Auto (Bld) [#/Vol]Ordere d By: Oleg Tucker on 06-14-2023 WBC (Bld) [#/Vol] 4.9 10*3/uL 4.5-13.5 [facility] Automated erythrocytes count in urine sediment (number/area)Ordered By: Oleg Tucker on 06-13-2023 RBC Auto (Urine sed) [#/Area] 1-2 [HPF] 0-4 [facility] Automated leukocytes count i n urine sediment (number/area)Ordered By: Oleg Tucker on 06-13-2023 WBC Auto (Urine sed) [#/Area] 1-2 [HPF] 0-4 [facility] Bilirubin Test strip Ql (U)O rdered By: Oleg Tucker on 06-13-2023 Bilirubin Ql (U) Negative Negative [facility] Color Auto (U)Ordered By: João Tucker on 06-13-2023 Color (U) Yellow Yellow [facility] HCG ( test) IA.rapi d Ql (U)Ordered By: LUCAS KAHN on 06-13-2023 HCG ( test) Ql (U) Negative [facility] Ketones Auto test strip (U) [Mass/Vol]Ordered By: Oleg Tucker on 06-13-2023 Ketones (U) [Mass/Vol] 1+ Negative [facility] Laboratory - UrinalysisOrder ed By: Oleg Tucker on 06-13-2023 Hyaline casts LM Ql (Urine sed) 0-8 [LPF] 0-8 [facility] Nitrite Test strip Ql (U)Ord ered By: Oleg Tucker on 06-13-2023 Nitrite Ql (U) Negative Negative [facility] Protein Auto test strip (U) [Mass/Vol]Ordered By: Oleg Tucker on 06-13-2023 Protein (U) [Mass/Vol] Negative Negative [facility] Specific gravity Auto test s trip (U) [Rel density]Ordered By: Oleg Tucker on 06-13-2023 Specific gravity (U) [Rel density] 1.008 1.001-1.03 0 [facility] Squamous epithelial cells de tection in urine sediment by light microscopyOrdered By: Oleg Tucker on 06-13-2023 Epithelial cells.squamous LM Ql (Urine sed) 3-4 [HPF] 0-2 [facility] Urine bacteria detection by automated methodOrdered By: Oleg Tucker on 06-13-2023 Bacteria Auto Ql (U) None seen None Seen [facility] Urine clarity by refractomet ry automatedOrdered By: Oleg Tucker on 06-13-2023 Clarity Refractometry automated (U) Clear Clear [facility] Urine glucose measurement by automated test strip (mass/volume)Ordered By: Oleg Tucker on 06-13-2023 Glucose Auto test strip (U) [Mass/Vol] Normal mg/dL Normal [facility] Urine hemoglobin detection b y automated test stripOrdered By: Oleg Tucker on 06-13-2023 Hemoglobin Auto test strip Ql (U) Trace Negative [facility] Urine leukocyte esterase det ection by automated test stripOrdered By: Oleg Tucker on 06-13-2023 Leukocyte esterase Auto test strip Ql (U) Negative Negative [facility] Urobilinogen Auto test strip (U) [Mass/Vol]Ordered By: Oleg Tucker on 11-17-2023 Urobilinogen (U) [Mass/Vol] Normal mg/dL Normal [facility] pH Auto test strip (U)Ordere d By: Oleg Tucker on 06-13-2023 pH (U) 8.0 [pH] 5.0-9.0 [facility] Alanine aminotransferase [En zymatic activity/volume] in Serum or PlasmaOrdered By: Oleg Tucker on 06-12-2023 ALT [Catalytic activity/Vol] 18 U/L 7-52 [facility] Albumin [Mass/volume] in Ser um or Plasma by Bromocresol green (BCG) dye binding methoOrdered By: Oleg Tucker on 06-12-2023 Albumin BCG dye [Mass/Vol] 4.4 g/dL 3.5-5.7 [facility] Alkaline phosphatase [Enzyma tic activity/volume] in Serum or PlasmaOrdered By: Oleg Tucker on 06-12-2023 ALP [Catalytic activity/Vol] 49 U/L 32-92 [facility] Amphetamine Screen Ql (U)Ord ered By: Oleg Tucker on 06-12-2023 Amphetamines Ql (U) Negative Negative [facility] Aspartate aminotransferase [ Enzymatic activity/volume] in Serum or PlasmaOrdered By: Oleg Tucker on 06-12-2023 AST [Catalytic activity/Vol] 34 U/L 13-39 [facility] Barbiturates [Presence] in U rine by Screen methodOrdered By: Oleg Tucker on 06-12-2023 Barbiturates Screen Ql (U) Negative Negative [facility] Basophils Auto (Bld) [#/Vol] Ordered By: Oleg Tucker on 06-12-2023 Basophils (Bld) [#/Vol] 0.0 10*3/uL 0.0-0.1 [facility] Basophils/100 WBC Auto (Bld) Ordered By: Oleg Tucker on 06-12-2023 Basophils/100 WBC (Bld) 0.5 % . [facility] Benzodiazepines Screen Ql (U )Ordered By: Oleg Tucker on 06-12-2023 Benzodiazepines Ql (U) Negative Negative [facility] Benzoylecgonine [Presence] i n Urine by Screen methodOrdered By: Oleg Tucker on 06-12-2023 Benzoylecgonine Screen Ql (U) Negative Negative [facility] Bilirubin Test strip Ql (U)O rdered By: Oleg Tucker on 06-12-2023 Bilirubin Ql (U) Negative Negative [facility] Bilirubin.total [Mass/volume ] in Serum or PlasmaOrdered By: Oleg Tucker on 06-12-2023 Bilirubin [Mass/Vol] 0.6 mg/dL 0.3-1.2 [facility] Calcium [Mass/volume] in Ser um or PlasmaOrdered By: Oleg Tucker on 06-12-2023 Calcium [Mass/Vol] 9.1 mg/dL 8.2-10.2 [facility] Cannabinoids [Presence] in U rine by Screen methodOrdered By: Oleg Tucker on 06-12-2023 Cannabinoids Screen Ql (U) Positive Negative [facility] Comment on above: These are unconfirme d results and should not be used for legal purposes. Drug Cut-Off Concentration: AMPH 1000 ng/mL MILADIS 200 ng/mL KIMBERLY 200 ng/mL COCM 300 ng/mL OP 300 ng/mL PCP 25 ng/mL THC 20 ng/mL Carbon dioxide, total [Moles /volume] in Serum or PlasmaOrdered By: Oleg Tucker on 06-12-2023 CO2 [Moles/Vol] 25.9 mmol/L 22.0-30.0 [facility] Chloride [Moles/volume] in S melissa or PlasmaOrdered By: Oleg Tucker on 06-12-2023 Chloride [Moles/Vol] 104 mmol/L 95-114 [facility] Color Auto (U)Ordered By: João Tucker on 06-12-2023 Color (U) Yellow Yellow [facility] Creatinine [Mass/volume] in Serum or PlasmaOrdered By: Oleg Tucker on 06-12-2023 Creatinine [Mass/Vol] 0.66 mg/dL 0.44-1.03 [facility] Eosinophils Auto (Bld) [#/Vo l]Ordered By: Oleg Tucker on 06-12-2023 Eosinophils (Bld) [#/Vol] 0.0 10*3/uL 0.0-0.7 [facility] Eosinophils/100 WBC Auto (Bl d)Ordered By: Oleg Tucker on 06-12-2023 Eosinophils/100 WBC (Bld) 0.1 % . [facility] Erythrocyte distribution wid th Auto (RBC) [Ratio]Ordered By: Oleg Tucker on 06-12-2023 Erythrocyte distribution width (RBC) [Ratio] 13.3 % 11.9-15.3 [facility] Globulin Calc (S) [Mass/Vol] Ordered By: Oleg Tucker on 06-12-2023 Globulin (S) [Mass/Vol] 2.6 g/dL [facility] Glucose [Mass/volume] in Ser um or PlasmaOrdered By: Oleg Tucker on 06-12-2023 Glucose [Mass/Vol] 115 mg/dL 70-100 [facility] Comment on above: ADA recommended refe rence rangeRandom Glucose Reference Range is dependent on time and content of last meal. Glucose of more than 200 mg/dL in a nonstressed, ambulatory subject supports the diagnosis of Diabetes Mellitus. HCG ( test) IA.rapi d Ql (U)Ordered By: Oleg Tucker on 06-12-2023 HCG ( test) Ql (U) Negative [facility] Hematocrit Auto (Bld) [Volum e fraction]Ordered By: Oleg Tucker on 06-12-2023 Hematocrit (Bld) [Volume fraction] 38.2 % 36.0-46.0 [facility] Hemoglobin [Mass/volume] in BloodOrdered By: Oleg Tucker on 06-12-2023 Hemoglobin (Bld) [Mass/Vol] 13.2 g/dL 12.0-16.0 [facility] Ketones Auto test strip (U) [Mass/Vol]Ordered By: Oleg Tucker on 06-12-2023 Ketones (U) [Mass/Vol] Trace [facility] Leukocytes [#/volume] correc hamlet for nucleated erythrocytes in Blood by Automated counOrdered By: Oleg Tucker on 06-12-2023 WBC corrected for nucl RBC Auto (Bld) [#/Vol] 4.6 10*3/uL 4.5-13.5 [facility] Lipase [Enzymatic activity/v olume] in Serum or PlasmaOrdered By: Oleg Tucker on 06-12-2023 Lipase [Catalytic activity/Vol] 8.0 U/L 11.0-82.0 [facility] Lymphocytes Auto (Bld) [#/Vo l]Ordered By: Oleg Tucker on 06-12-2023 Lymphocytes (Bld) [#/Vol] 1.4 10*3/uL 1.20-4.8 [facility] Lymphocytes/100 WBC Auto (Bl d)Ordered By: Oleg Tucker on 06-12-2023 Lymphocytes/100 WBC (Bld) 30.6 % . [facility] MCH Auto (RBC) [Entitic mass ]Ordered By: Oleg Tucker on 06-12-2023 MCH (RBC) [Entitic mass] 30.8 pg 25.0-35.0 [facility] MCHC Auto (RBC) [Mass/Vol]Or dered By: Oleg Tucker on 06-12-2023 MCHC (RBC) [Mass/Vol] 34.6 g/dL 31.0-37.0 [facility] MCV Auto (RBC) [Entitic vol] Ordered By: Oleg Tucker on 06-12-2023 MCV (RBC) [Entitic vol] 89.3 fL 78-102 [facility] Monocytes Auto (Bld) [#/Vol] Ordered By: Oleg Tucker on 06-12-2023 Monocytes (Bld) [#/Vol] 0.7 10*3/uL 0.1-1.00 [facility] Monocytes/100 WBC Auto (Bld) Ordered By: Oleg Tucker on 06-12-2023 Monocytes/100 WBC (Bld) 16.2 % . [facility] Neutrophils Auto (Bld) [#/Vo l]Ordered By: Oleg Tucker on 06-12-2023 Neutrophils (Bld) [#/Vol] 2.4 10*3/uL 1.2-7.7 [facility] Neutrophils/100 WBC Auto (Bl d)Ordered By: Oleg Tucker on 06-12-2023 Neutrophils/100 WBC (Bld) 52.6 % . [facility] Nitrite Test strip Ql (U)Ord ered By: Oleg Tucker on 06-12-2023 Nitrite Ql (U) Negative Negative [facility] No Panel InformationOrdered By: Oleg Tucker on 06-12-2023 Estimated GFR (CKD-EPI) N/A [facility] Creatinine Clearance (Chem 90.87 [facility] Nucleated erythrocytes [Pres ence] in Blood by Automated countOrdered By: Oleg Tucker on 06-12-2023 Nucleated RBC Auto Ql (Bld) 0.1 /100{WBC} 0-0.5 [facility] Opiates [Presence] in Urine by Screen methodOrdered By: Oleg Tucker on 06-12-2023 Opiates Screen Ql (U) Negative Negative [facility] Phencyclidine Screen Ql (U)O rdered By: Oleg Tucker on 06-12-2023 Phencyclidine Ql (U) Negative Negative [facility] Platelet mean volume Auto (B ld) [Entitic vol]Ordered By: Oleg Tucker on 06-12-2023 Platelet mean volume (Bld) [Entitic vol] 7.4 fL 6.3-10.7 [facility] Platelets Auto (Bld) [#/Vol] Ordered By: Oleg Tucker on 06-12-2023 Platelets (Bld) [#/Vol] 235 10*3/uL 150-450 [facility] Potassium [Moles/volume] in Serum or PlasmaOrdered By: Oleg Tucker on 06-12-2023 Potassium [Moles/Vol] 3.3 mmol/L 3.5-5.1 [facility] Protein Auto test strip (U) [Mass/Vol]Ordered By: Oleg Tucker on 06-12-2023 Protein (U) [Mass/Vol] Negative Negative [facility] Protein [Mass/volume] in Ser um or PlasmaOrdered By: Oleg Tucker on 06-12-2023 Protein [Mass/Vol] 7.0 g/dL 6.4-8.9 [facility] RBC Auto (Bld) [#/Vol]Ordere d By: Oleg Tucker on 06-12-2023 RBC (Bld) [#/Vol] 4.27 10*6/uL 4.10-5.10 [facility] Serum or plasma albumin/glob ulin mass ratioOrdered By: Oleg Tucker on 06-12-2023 Albumin/Globulin [Mass ratio] 1.7 {ratio} [facility] Serum or plasma anion gap de terminationOrdered By: Oleg Tucker on 06-12-2023 Anion gap [Moles/Vol] 10.4 mmol/L 6.0-15.0 [facility] Sodium [Moles/volume] in Ser um or PlasmaOrdered By: Oleg Tucker on 06-12-2023 Sodium [Moles/Vol] 137 mmol/L 138-145 [facility] Specific gravity Auto test s trip (U) [Rel density]Ordered By: Oleg Tucker on 06-12-2023 Specific gravity (U) [Rel density] 1.003 1.001-1.03 0 [facility] Urea nitrogen [Mass/volume] in Serum or PlasmaOrdered By: Oleg Tucker on 06-12-2023 Urea nitrogen [Mass/Vol] 7 mg/dL 9- [facility] Urine clarity by refractomet ry automatedOrdered By: Oleg Tucker on 06-12-2023 Clarity Refractometry automated (U) Clear Clear [facility] Urine glucose measurement by automated test strip (mass/volume)Ordered By: Oleg Tucker on 06-12-2023 Glucose Auto test strip (U) [Mass/Vol] Normal mg/dL Normal [facility] Urine hemoglobin detection b y automated test stripOrdered By: Oleg Tucker on 06-12-2023 Hemoglobin Auto test strip Ql (U) Negative Negative [facility] Urine leukocyte esterase det ection by automated test stripOrdered By: Oleg Tucker on 06-12-2023 Leukocyte esterase Auto test strip Ql (U) Negative Negative [facility] Urobilinogen Auto test strip (U) [Mass/Vol]Ordered By: Oleg Tucker on 06-12-2023 Urobilinogen (U) [Mass/Vol] Normal mg/dL Normal [facility] WBC Auto (Bld) [#/Vol]Ordere d By: Oleg Tucker on 06-12-2023 WBC (Bld) [#/Vol] 4.6 10*3/uL 4.5-13.5 [facility] pH Auto test strip (U)Ordere d By: Oleg Tucker on 06-12-2023 pH (U) 7.5 [pH] 5.0-9.0 [facility] CHEMISTRYOrdered By: SYSTEM SYSTEM on 06-11-2023 [...] 06-11-2023 HCG.beta subunit (U) [Moles/Vol] Negative Normal [facility] URINALYSISOrdered By: Shelbie Reis on [...] Interpretation Code Negative [facility] UA Auto SS [place].plasma/[place] .RBC (Bld) [Mass ratio] 0-3 /HPF Normal [...] [facility] UA Auto SS Urobilinogen Qn (U) [id number] {[place]'U}/dL Normal 0.0 - 1.0 EU/dL [facility] UA Auto SS WBC Auto Ql (U) Negative (06/11/23 2:12 PM) Normal Negative [facility] UA Auto SS WBC LM.HPF (Urine sed) [#/Area] 6-15 /HPF Invalid Interpretation Code 0-5/HPF [facility] UA Auto SS Alanine aminotransferase [En zymatic activity/volume] in Serum or PlasmaOrdered By: Ty Smith on 06-10-2023 ALT [Catalytic activity/Vol] 16 U/L 7-52 [facility] Albumin [Mass/volume] in Ser um or Plasma by Bromocresol green (BCG) dye binding methoOrdered By: Ty Smith on 06-10-2023 Albumin BCG dye [Mass/Vol] 5.0 g/dL 3.5-5.7 [facility] Alkaline phosphatase [Enzyma tic activity/volume] in Serum or PlasmaOrdered By: Ty Smtih on 06-10-2023 ALP [Catalytic activity/Vol] 62 U/L 32-92 [facility] Aspartate aminotransferase [ Enzymatic activity/volume] in Serum or PlasmaOrdered By: Ty Smith on 06-10-2023 AST [Catalytic activity/Vol] 22 U/L 13-39 [facility] Basophils Auto (Bld) [#/Vol] Ordered By: Ty Smith on 06-10-2023 Basophils (Bld) [#/Vol] 0.1 10*3/uL 0.0-0.1 [facility] Basophils/100 WBC Auto (Bld) Ordered By: Ty Smith on 06-10-2023 Basophils/100 WBC (Bld) 0.6 % . [facility] Bilirubin.total [Mass/volume ] in Serum or PlasmaOrdered By: Ty Smith on 06-10-2023 Bilirubin [Mass/Vol] 1.3 mg/dL 0.3-1.2 [facility] Comment on above: Samples from patient s who have taken Naproxen have shown spurious elevation in Total Bilirubin levels. A metabolite of Naproxen, O-desmethylnaproxen, has been shown to interfere with the Carola-Navi method for measuring Total Bilirubin. Calcium [Mass/volume] in Ser um or PlasmaOrdered By: Ty Smith on 06-10-2023 Calcium [Mass/Vol] 10.4 mg/dL 8.2-10.2 [facility] Carbon dioxide, total [Moles /volume] in Serum or PlasmaOrdered By: Ty Smith on 06-10-2023 CO2 [Moles/Vol] 24.2 mmol/L 22.0-30.0 [facility] Chloride [Moles/volume] in S melissa or PlasmaOrdered By: Ty Smith on 06-10-2023 Chloride [Moles/Vol] 104 mmol/L 95-114 [facility] Creatinine [Mass/volume] in Serum or PlasmaOrdered By: Ty Smith 06-10-2023 Creatinine [Mass/Vol] 0.85 mg/dL 0.44-1.03 [facility] Eosinophils Auto (Bld) [#/Vo l]Ordered By: Ty Smith on 06-10-2023 Eosinophils (Bld) [#/Vol] 0.0 10*3/uL 0.0-0.7 [facility] Eosinophils/100 WBC Auto (Bl d)Ordered By: Ty Smith on 06-10-2023 Eosinophils/100 WBC (Bld) 0.1 % . [facility] Erythrocyte distribution wid th Auto (RBC) [Ratio]Ordered By: Ty Smith on 06-10-2023 Erythrocyte distribution width (RBC) [Ratio] 13.2 % 11.9-15.3 [facility] Globulin Calc (S) [Mass/Vol] Ordered By: Ty Smith on 06-10-2023 Globulin (S) [Mass/Vol] 2.9 g/dL [facility] Glucose [Mass/volume] in Ser um or PlasmaOrdered By: Ty Smith on 06-10-2023 Glucose [Mass/Vol] 126 mg/dL 70-100 [facility] Comment on above: ADA recommended refe rence rangeRandom Glucose Reference Range is dependent on time and content of last meal. Glucose of more than 200 mg/dL in a nonstressed, ambulatory subject supports the diagnosis of Diabetes Mellitus. Hematocrit Auto (Bld) [Volum e fraction]Ordered By: Ty Smith on 06-10-2023 Hematocrit (Bld) [Volume fraction] 41.8 % 36.0-46.0 [facility] Hemoglobin [Mass/volume] in BloodOrdered By: Ty Smith on 06-10-2023 Hemoglobin (Bld) [Mass/Vol] 14.3 g/dL 12.0-16.0 [facility] Leukocytes [#/volume] correc hamlet for nucleated erythrocytes in Blood by Automated counOrdered By: Ty Smith on 06-10-2023 WBC corrected for nucl RBC Auto (Bld) [#/Vol] 10.5 10*3/uL 4.5-13.5 [facility] Lipase [Enzymatic activity/v olume] in Serum or PlasmaOrdered By: Ty Smith on 06-10-2023 Lipase [Catalytic activity/Vol] 7.0 U/L 11.0-82.0 [facility] Lymphocytes Auto (Bld) [#/Vo l]Ordered By: Ty Smith on 06-10-2023 Lymphocytes (Bld) [#/Vol] 0.5 10*3/uL 1.20-4.8 [facility] Lymphocytes/100 WBC Auto (Bl d)Ordered By: Ty Smith on 06-10-2023 Lymphocytes/100 WBC (Bld) 4.7 % . [facility] MCH Auto (RBC) [Entitic mass ]Ordered By: Ty Smith on 06-10-2023 MCH (RBC) [Entitic mass] 31.1 pg 25.0-35.0 [facility] MCHC Auto (RBC) [Mass/Vol]Or dered By: Ty Smith on 06-10-2023 MCHC (RBC) [Mass/Vol] 34.1 g/dL 31.0-37.0 [facility] MCV Auto (RBC) [Entitic vol] Ordered By: Ty Smith on 06-10-2023 MCV (RBC) [Entitic vol] 91.1 fL 78-102 [facility] Monocytes Auto (Bld) [#/Vol] Ordered By: Ty Smith on 06-10-2023 Monocytes (Bld) [#/Vol] 0.7 10*3/uL 0.1-1.00 [facility] Monocytes/100 WBC Auto (Bld) Ordered By: Ty Smith on 06-10-2023 Monocytes/100 WBC (Bld) 6.6 % . [facility] Neutrophils Auto (Bld) [#/Vo l]Ordered By: Ty Smith on 06-10-2023 Neutrophils (Bld) [#/Vol] 9.3 10*3/uL 1.2-7.7 [facility] Neutrophils/100 WBC Auto (Bl d)Ordered By: Ty Smith on 06-10-2023 Neutrophils/100 WBC (Bld) 88.0 % . [facility] No Panel InformationOrdered By: Ty Smith on 06-10-2023 Estimated GFR (CKD-EPI) N/A [facility] Creatinine Clearance (Chem 71.49 [facility] Nucleated erythrocytes [Pres ence] in Blood by Automated countOrdered By: Ty Smith on 06-10-2023 Nucleated RBC Auto Ql (Bld) 0.0 /100{WBC} 0-0.5 [facility] Platelet mean volume Auto (B ld) [Entitic vol]Ordered By: Ty Smith on 06-10-2023 Platelet mean volume (Bld) [Entitic vol] 7.5 fL 6.3-10.7 [facility] Platelets Auto (Bld) [#/Vol] Ordered By: Ty Smith on 06-10-2023 Platelets (Bld) [#/Vol] 317 10*3/uL 150-450 [facility] Potassium [Moles/volume] in Serum or PlasmaOrdered By: Ty Smith on 06-10-2023 Potassium [Moles/Vol] 3.6 mmol/L 3.5-5.1 [facility] Protein [Mass/volume] in Ser um or PlasmaOrdered By: Ty Smith on 06-10-2023 Protein [Mass/Vol] 7.9 g/dL 6.4-8.9 [facility] RBC Auto (Bld) [#/Vol]Ordere d By: Ty Smith on 06-10-2023 RBC (Bld) [#/Vol] 4.59 10*6/uL 4.10-5.10 [facility] Serum or plasma albumin/glob ulin mass ratioOrdered By: Ty Smith on 06-10-2023 Albumin/Globulin [Mass ratio] 1.7 {ratio} [facility] Serum or plasma anion gap de terminationOrdered By: Ty Smith on 06-10-2023 Anion gap [Moles/Vol] 15.4 mmol/L 6.0-15.0 [facility] Sodium [Moles/volume] in Ser um or PlasmaOrdered By: Ty Smith on 06-10-2023 Sodium [Moles/Vol] 140 mmol/L 138-145 [facility] Urea nitrogen [Mass/volume] in Serum or PlasmaOrdered By: Ty Smith on 06-10-2023 Urea nitrogen [Mass/Vol] 8 mg/dL 9-23 [facility] WBC Auto (Bld) [#/Vol]Ordere d By: Ty Smith on 06-10-2023 WBC (Bld) [#/Vol] 10.5 10*3/uL 4.5-13.5 [facility] GROUP A STREP CULTUREon 0 S. pyogenes Ag Ql (Unsp spec) Culture Observations: NEGATIVE FOR GROUP A STREPTOCOCCUS. Normal [facility] Comment on above: Performed By: #### G RASTCX, SSCRN #### [facility] [address] [place] [address] Dr. Saba Navarro STREPT SCREENon 11-27-2022 STREP SCREEN A Negative Normal NEGATIVE [facility] Comment on above: Performed By: #### G RASTCX, SSCRN #### [facility] [address] [place] [address] Dr. Saba Navarro CBC AUTO DIFFon 11-14-2022 BASO # 0.1 103/ul Normal 0.0-0.1 [facility] Comment on above: Performed By: #### C BC #### [facility] [address] [place] [address] Dr. Saba Navarro Basophils/100 WBC (Bld) 0.9 % Normal 0.2-2.0 [facility] Comment on above: Performed By: #### C BC #### [facility] [address] [place] [address] Dr. Saba Navarro EO # 0.1 103/ul Normal 0.0-0.7 [facility] Comment on above: Performed By: #### C BC #### [facility] [address] [place] [address] Dr. Saba Navarro Eosinophils/100 WBC (Bld) 1.6 % Normal 0.9-7.0 [facility] Comment on above: Performed By: #### C BC #### [facility] [address] [place] [address] Dr. Saba Navarro Erythrocyte distribution width (RBC) [Ratio] 12.4 % Normal 11.0-15.0 [facility] Comment on above: Performed By: #### C BC #### [facility] [address] [place] [address] Dr. Saba Navarro Hematocrit (Bld) [Volume fraction] 40.8 % Normal 36.0-48.0 [facility] Comment on above: Performed By: #### C BC #### [facility] [address] [place] [address] Dr. Saba Navarro Hemoglobin (Bld) [Mass/Vol] 13.6 g/dL Normal 12.0-16.0 [facility] Comment on above: Performed By: #### C BC #### [facility] [address] [place] [address] Dr. Saba Navarro IG # 0.02 10e3/ul Normal 0.00-0.03 [facility] Comment on above: Performed By: #### C BC #### [facility] [address] [place] [address] Dr. Saba Navarro IG % 0.3 % Normal 0.0-0.5 [facility] Comment on above: Performed By: #### C BC #### [facility] [address] [place] [address] Dr. Saba Navarro LYMPH # 1.7 103/ul Normal 1.2-3.8 [facility] Comment on above: Performed By: #### C BC #### [facility] [address] [place] [address] Dr. Saba Navarro Lymphocytes/100 WBC (Bld) 21.2 % Normal 20.5-60.0 [facility] Comment on above: Performed By: #### C BC #### [facility] [address] [place] [address] Dr. Saba Navarro MANUAL DIFF REQ NO Normal [facility] Comment on above: Performed By: #### C BC #### [facility] [address] [place] [address] Dr. Saba Navarro MCH (RBC) [Entitic mass] 30.1 pg Normal 26.7-34.0 [facility] Comment on above: Performed By: #### C BC #### [facility] [address] [place] [address] Dr. Saba Navarro MCHC (RBC) [Mass/Vol] 33.3 g/dL Normal 29.9-35.2 [facility] Comment on above: Performed By: #### C BC #### [facility] [address] [address] [address] Saba Navarro MCV (RBC) [Entitic vol] 90.3 fL Normal 79.1-95.6 [facility] Comment on above: Performed By: #### C BC #### [facility] [address] [address] [address] Saba Navarro MONO # 0.7 103/ul Normal 0.3-0.8 [facility] Comment on above: Performed By: #### C BC #### [facility] [address] [address] [address] Saba Navarro Monocytes/100 WBC (Bld) 9.3 % Normal 1.7-12.0 [facility] Comment on above: Performed By: #### C BC #### [facility] [address] [place] [address] Dr. Saba Navarro NEUT # 5.3 103/ul Normal 1.4-6.5 [facility] Comment on above: Performed By: #### C BC #### [facility] [address] [place] [address] Dr. Saba Navarro Neutrophils/100 WBC (Bld) 66.7 % Normal 43.0-75.0 [facility] Comment on above: Performed By: #### C BC #### [facility] [address] [place] [address] Dr. Saba Navarro Platelet mean volume (Bld) [Entitic vol] 9.2 fL Critically low 9.5-13.5 [facility] Comment on above: Performed By: #### C BC #### [facility] [address] [place] [address] Dr. Saba Navarro PLT 291 103/ul Normal 150-450 [facility] Comment on above: Performed By: #### C BC #### [facility] [address] [place] [address] Dr. Saba Navarro RBC 4.52 106/ul Normal 3.40-5.30 [facility] Comment on above: Performed By: #### C BC #### [facility] [address] [address] [address] Saba Navarro WBC 7.9 103/ul Normal 4.0-11.0 [facility] Comment on above: Performed By: #### C BC #### [facility] [address] [place] [address] Dr. Saba Navarro PROF CHEM 8 (BAS METB)on Anion gap [Moles/Vol] 14.8 mmol/L Normal [facility] Comment on above: Performed By: #### B MP #### [facility] [address] [place] [address] Dr. Saba Navarro Calcium [Mass/Vol] 9.1 mg/dL Normal 8.5-10.1 [facility] Comment on above: Performed By: #### B MP #### [facility] [address] [place] [address] Dr. Saba Navarro Chloride [Moles/Vol] 105 mmol/L Normal 98-107 [facility] Comment on above: Performed By: #### B MP #### [facility] [address] [place] [address] Dr. Saba Navarro CO2 [Moles/Vol] 25.6 mmol/L Normal 21.0-32.0 [facility] Comment on above: Performed By: #### B MP #### [facility] [address] [place] [address] Dr. Saba Navarro Creatinine [Mass/Vol] 0.67 mg/dL Normal 0.55-1.02 [facility] Comment on above: Performed By: #### B MP #### [facility] [address] [place] [address] Dr. Saba Navarro EGFR-AF GUYANESE >60 Normal >=60 [facility] Comment on above: Performed By: #### B MP #### [facility] [address] [place] [address] Dr. Saba Navarro EGFR-NON AF GUYANESE >60 Normal >=60 [facility] Comment on above: Performed By: #### B MP #### [facility] [address] [place] [address] Dr. Saba Navarro Glucose [Mass/Vol] 114 mg/dL Critically high 74-106 [facility] Comment on above: Performed By: #### B MP #### [facility] [address] [address] [address] Saba Navarro Potassium [Moles/Vol] 3.4 mmol/L Critically low 3.5-5.1 [facility] Comment on above: Performed By: #### B MP #### [facility] [address] [address] [address] Saba Navarro Sodium [Moles/Vol] 142 mmol/L Normal 136-145 [facility] Comment on above: Performed By: #### B MP #### [facility] [address] [address] [address] Saba Navarro Urea nitrogen [Mass/Vol] 4.0 mg/dL Critically low 6.4-19.3 [facility] Comment on above: Performed By: #### B MP #### [facility] [address] [address] [address] Saba Navarro Urea nitrogen/Creatinine [Mass ratio] 6.0 mg/mg Normal [facility] Comment on above: Performed By: #### B MP #### [facility] [address] [address] [address] Saba Navarro Albumin [Mass/volume] in Ser um or PlasmaOrdered By: Edenilson Garces on 05-25-2022 Albumin [Mass/Vol] 4.4 g/dL 3.2-5.5 [facility] Amphetamine Screen Ql (U)Ord ered By: Edenilson Garces on 05-25-2022 Amphetamines Ql (U) Negative Negative [facility] Automated erythrocytes count in urine sediment (number/area)Ordered By: Edenilson Garces on 05-25-2022 RBC Auto (Urine sed) [#/Area] 1-2 [HPF] 0-4 [facility] Automated leukocytes count i n urine sediment (number/area)Ordered By: Edenilson Garces on 05-25-2022 WBC Auto (Urine sed) [#/Area] 20-49 [HPF] 0-4 [facility] Barbiturates [Presence] in U rineOrdered By: Edenilson Garces on 05-25-2022 Barbiturates Ql (U) Negative Negative [facility] Basophils Auto (Bld) [#/Vol] Ordered By: Edenilson Garces on 05-25-2022 Basophils (Bld) [#/Vol] 0.0 10*3/uL 0.0-0.1 [facility] Basophils/100 WBC Auto (Bld) Ordered By: Edenilson Garces on 05-25-2022 Basophils/100 WBC (Bld) 0.2 % . [facility] Benzodiazepines [Presence] i n UrineOrdered By: Edenilson Garces on 05-25-2022 Benzodiazepines Ql (U) Negative Negative [facility] Bilirubin Test strip Ql (U)O rdered By: Edenilson Garces on 05-25-2022 Bilirubin Ql (U) Negative Negative [facility] COVID-19 SOFIAOrdered By: Elle Garces on 05-25-2022 SARS-CoV+SARS-CoV-2 (COVID-19) Ag IA.rapid Ql (Resp) Negative Negative [facility] Comment on above: This is a duplicate Desire SARS Antigen (BUCKY) result to be used for statistical tracking purpose only. Cannabinoids [Presence] in U rine by Screen methodOrdered By: Edenilson Garces on 05-25-2022 Cannabinoids Screen Ql (U) Positive Negative [facility] Comment on above: These are unconfirme d results and should not be used for legal purposes. Drug Cut-Off Concentration: AMPH 1000 ng/mL MILADIS 200 ng/mL KIMBERLY 200 ng/mL COCM 300 ng/mL OP 300 ng/mL PCP 25 ng/mL THC 20 ng/mL Color Auto (U)Ordered By: Elle Garces on 05-25-2022 Color (U) Yellow Yellow [facility] Creatinine and Glomerular fi ltration rate.predicted panel (S/P/Bld)Ordered By: Edenilson Garces on 05-25-2022 Creatinine [Mass/Vol] 0.67 mg/dL 0.44-1.03 [facility] Eosinophils Auto (Bld) [#/Vo l]Ordered By: Edenilson Garces on 05-25-2022 Eosinophils (Bld) [#/Vol] 0.0 10*3/uL 0.0-0.7 [facility] Eosinophils/100 WBC Auto (Bl d)Ordered By: Edenilson Garces on 05-25-2022 Eosinophils/100 WBC (Bld) 0.3 % . [facility] Erythrocyte distribution wid th Auto (RBC) [Ratio]Ordered By: Edenilson Garces on 05-25-2022 Erythrocyte distribution width (RBC) [Ratio] 13.1 % 11.9-15.3 [facility] Estimated glomerular filtrat ion rate (GFR) non- AmericanOrdered By: Edenilson Garces on 05-25-2022 GFR/1.73 sq M.predicted among non-blacks MDRD (S/P/Bld) [Vol rate/Area] N/A [facility] Globulin Calc (S) [Mass/Vol] Ordered By: Edenilson Garces on 05-25-2022 Globulin (S) [Mass/Vol] 2.5 g/dL [facility] HCG ( test) IA.rapi d Ql (U)Ordered By: Edenilson Garces on 05-25-2022 HCG ( test) Ql (U) Negative [facility] Hematocrit Auto (Bld) [Volum e fraction]Ordered By: Edenilson Garces on 05-25-2022 Hematocrit (Bld) [Volume fraction] 39.8 % 36.0-46.0 [facility] Hemoglobin [Mass/volume] in BloodOrdered By: Edenilson Garces on 05-25-2022 Hemoglobin (Bld) [Mass/Vol] 13.3 g/dL 12.0-16.0 [facility] Ketones Auto test strip (U) [Mass/Vol]Ordered By: Edenilson Garces on 05-25-2022 Ketones (U) [Mass/Vol] Negative Negative [facility] - Drug toxicology Ordered By: Edenilson Garces on 05-25-2022 Opiates Ql (U) Negative Negative [facility] - Hematology and Cell countsOrdered By: Edenilson Garces on 05-25-2022 Nucleated RBC/100 WBC (Bld) [Ratio] 0.0 % 0-0.5 [facility] - UrinalysisOrder ed By: Edenilson Garces on 05-25-2022 Hyaline casts LM Ql (Urine sed) 0-8 [LPF] 0-8 [facility] Leukocytes [#/volume] in Blo od by Automated countOrdered By: Edenilson Garces on 05-25-2022 WBC (Bld) [#/Vol] 10.9 10*3/uL 4.5-13.5 [facility] Lymphocytes Auto (Bld) [#/Vo l]Ordered By: Edenilson Garces on 05-25-2022 Lymphocytes (Bld) [#/Vol] 1.6 10*3/uL 1.20-4.8 [facility] Lymphocytes/100 WBC Auto (Bl d)Ordered By: Edenilson Garces on 05-25-2022 Lymphocytes/100 WBC (Bld) 14.3 % . [facility] MCH Auto (RBC) [Entitic mass ]Ordered By: Edenilson Garces on 05-25-2022 MCH (RBC) [Entitic mass] 29.8 pg 25.0-35.0 [facility] MCHC Auto (RBC) [Mass/Vol]Or dered By: Edenilson Garces on 05-25-2022 MCHC (RBC) [Mass/Vol] 33.3 g/dL 31.0-37.0 [facility] MCV Auto (RBC) [Entitic vol] Ordered By: Edenilson Garces on 05-25-2022 MCV (RBC) [Entitic vol] 89.5 fL 78-102 [facility] Monocytes Auto (Bld) [#/Vol] Ordered By: Edenilson Garces on 05-25-2022 Monocytes (Bld) [#/Vol] 0.8 10*3/uL 0.1-1.00 [facility] Monocytes/100 WBC Auto (Bld) Ordered By: Edenilson Garces on 05-25-2022 Monocytes/100 WBC (Bld) 7.0 % . [facility] Neutrophils Auto (Bld) [#/Vo l]Ordered By: Edenilson Garces on 05-25-2022 Neutrophils (Bld) [#/Vol] 8.6 10*3/uL 1.2-7.7 [facility] Neutrophils/100 WBC Auto (Bl d)Ordered By: Edenilson Garces on 05-25-2022 Neutrophils/100 WBC (Bld) 78.2 % . [facility] Nitrite Test strip Ql (U)Ord ered By: Edenilson Garces on 05-25-2022 Nitrite Ql (U) Negative Negative [facility] No Panel InformationOrdered By: Edenilson Garces on 05-25-2022 Estimated GFR () N/A [facility] Creatinine Clearance (Chem 108.70 [facility] SARS Antigen (LFIA) [facility] Phencyclidine Screen Ql (U)O rdered By: Edenilson Garces on 05-25-2022 Phencyclidine Ql (U) Negative Negative [facility] Platelet mean volume Auto (B ld) [Entitic vol]Ordered By: Edenilson Garces on 05-25-2022 Platelet mean volume (Bld) [Entitic vol] 7.7 fL 6.3-10.7 [facility] Platelets Auto (Bld) [#/Vol] Ordered By: Edenilson Garces on 05-25-2022 Platelets (Bld) [#/Vol] 275 10*3/uL 150-450 [facility] Protein Auto test strip (U) [Mass/Vol]Ordered By: Edenilson Garces on 05-25-2022 Protein (U) [Mass/Vol] Trace mg/dL Negative [facility] Protein [Mass/volume] in Ser um or PlasmaOrdered By: Edenilson Garces on 05-25-2022 Protein [Mass/Vol] 6.9 g/dL 6.1-7.9 [facility] RBC Auto (Bld) [#/Vol]Ordere d By: Edenilson Garces on 05-25-2022 RBC (Bld) [#/Vol] 4.45 10*6/uL 4.10-5.10 [facility] Salicylates [Mass/volume] in Serum or PlasmaOrdered By: Edenilson Garces on 05-25-2022 Salicylates [Mass/Vol] mg/dL 15.0-30.0 [facility] Comment on above: Patients treated wit h Sulfasalazine may generate a false high result for Salicylate.Patients treated with Sulfapyridine may generate a false low result for Salicylate. Serum or plasma acetaminophe n measurement (mass/volume)Ordered By: Edenilson Garces on 05-25-2022 Acetaminophen [Mass/Vol] ug/mL 10.0-30.0 [facility] Serum or plasma alanine solano otransferase measurement without P-5'-P (enzymatic activiOrdered By: Edenilson Garces on 05-25-2022 ALT No additional P-5'-P [Catalytic activity/Vol] 13 U/L 10-60 [facility] Serum or plasma albumin/glob ulin mass ratioOrdered By: Edenilson Garces on 05-25-2022 Albumin/Globulin [Mass ratio] 1.8 {ratio} [facility] Serum or plasma alkaline avis sphatase measurement (enzymatic activity/volume)Ordered By: Edenilson Garces on 05-25-2022 ALP [Catalytic activity/Vol] 69 U/L 67-372 [facility] Serum or plasma anion gap de terminationOrdered By: Edenilson Garces on 05-25-2022 Anion gap [Moles/Vol] 14.6 mmol/L 6.0-15.0 [facility] Serum or plasma aspartate am inotransferase measurement (enzymatic activity/volume)Ordered By: Edenilson Garces on 05-25-2022 AST [Catalytic activity/Vol] 20 U/L 10-42 [facility] Serum or plasma calcium delfin urement (mass/volume)Ordered By: Edenilson Garces on 05-25-2022 Calcium [Mass/Vol] 9.6 mg/dL 8.2-10.2 [facility] Serum or plasma chloride latrell surement (moles/volume)Ordered By: Edenilson Garces on 05-25-2022 Chloride [Moles/Vol] 102 mmol/L 95-114 [facility] Serum or plasma ethanol delfin urement (mass/volume)Ordered By: Edenilson Garces on 05-25-2022 Ethanol [Mass/Vol] mg/dL [facility] Ethanol [Mass/Vol] TNP [facility] Comment on above: Test not performed Serum or plasma glucose delfin urement (mass/volume)Ordered By: Edenilson Garces on 05-25-2022 Glucose [Mass/Vol] 109 mg/dL 70-100 [facility] Comment on above: ADA recommended refe rence rangeRandom Glucose Reference Range is dependent on time and content of last meal. Glucose of more than 200 mg/dL in a nonstressed, ambulatory subject supports the diagnosis of Diabetes Mellitus. Serum or plasma potassium me asurement (moles/volume)Ordered By: Edenilson Garces on 05-25-2022 Potassium [Moles/Vol] 3.3 mmol/L 3.5-5.1 [facility] Serum or plasma sodium measu rement (moles/volume)Ordered By: Edenilson Garces on 05-25-2022 Sodium [Moles/Vol] 138 mmol/L 138-145 [facility] Serum or plasma total biliru bin measurement (mass/volume)Ordered By: Edenilson Garces on 05-25-2022 Bilirubin [Mass/Vol] 0.6 mg/dL 0.3-1.2 [facility] Serum or plasma total carbon dioxide measurement (moles/volume)Ordered By: Edenilson Garces on 05-25-2022 CO2 [Moles/Vol] 24.7 mmol/L 22.0-30.0 [facility] Serum or plasma urea nitroge n measurement (mass/volume)Ordered By: Edenilson Garces on 05-25-2022 Urea nitrogen [Mass/Vol] 4 mg/dL 9- [facility] Specific gravity Auto test s trip (U) [Rel density]Ordered By: Edenilson Garces on 05-25-2022 Specific gravity (U) [Rel density] 1.006 1.001-1.03 0 [facility] Squamous epithelial cells de tection in urine sediment by light microscopyOrdered By: Edenilson Garces on 05-25-2022 Epithelial cells.squamous LM Ql (Urine sed) 5-9 [HPF] 0-2 [facility] Urine bacteria detection by automated methodOrdered By: Edenilson Garces on 05-25-2022 Bacteria Auto Ql (U) 1+ None Seen [facility] Urine clarity by refractomet ry automatedOrdered By: Edenilson Garces on 05-25-2022 Clarity Refractometry automated (U) Cloudy Clear [facility] Urine cocaine detectionOrder ed By: Edenilson Garces on 05-25-2022 Cocaine Ql (U) Negative Negative [facility] Urine glucose measurement by automated test strip (mass/volume)Ordered By: Edenilson Garces on 05-25-2022 Glucose Auto test strip (U) [Mass/Vol] Normal mg/dL Normal [facility] Urine hemoglobin detection b y automated test stripOrdered By: Edenilson Garces on 05-25-2022 Hemoglobin Auto test strip Ql (U) 1+ Negative [facility] Urine leukocyte esterase det ection by automated test stripOrdered By: Edenilson Dez on 05-25-2022 Leukocyte esterase Auto test strip Ql (U) 3+ Negative [facility] Urobilinogen Auto test strip (U) [Mass/Vol]Ordered By: Edenilson Dez on 05-25-2022 Urobilinogen (U) [Mass/Vol] Normal mg/dL Normal [facility] pH Auto test strip (U)Ordere d By: Edenilson Garces on 05-25-2022 pH (U) 6.5 [pH] 5.0-9.0 [facility] Clinical Event Note-Guardian Contacton 08-22-2020 Clinical [...] 22-Aug-2020 14:00 by Twila Aviles (Resident)) Normal [facility] Daily Progress Note - Child [...] to admission. Objective: Objective Information: T PRBPSpO2 [id number]/7097% Date/Time08/22 8: 8: 8: 8: 8:00 Range(36.6C [...] previously admitted to a psychiatric facility in [place], but no medications had been started. Upon [...] attending physician, fellow, charge nurse and social psychologist. The following topics were discussed during rounds [...] the note. I personally evaluated the patient [id number] Electronic Signatures: Melissa Araujo) (Signed 22-Aug-2020 18:26) Authored: Assessment and Plan, Multidisciplinary Rounding, Note Completion Co-Signer: Subjective Data, Objective, Assessment and Plan, Medication Consent, Note Completion Twila Aviles (Resident)) (Signed 22-Aug-2020 14:15) Authored: Subjective Data, Objective, Assessment and Plan, Medication Consent, Note Completion Last Updated: 22-Aug-2020 18:26 by Melissa Araujo) Normal [facility] Clinical Event Note-Guardian Contacton 08-21-2020 [...] 21-Aug-2020 15:21 by Twila Aviles (Resident)) Normal [facility] Clinical Event Note-SAFE-T A ssessmenton [...] Things - Anyone or Anything (e.g. family, adventist, pain of ) - That Stopped You [...] 15:47 by Twila Aviles ( (Resident)) Normal [facility] Daily Progress Note - Child [...] on 08/20. Objective: Objective Information: T PRBPSpO2 [id number]/6598% Date/Time08/21 11: 11: 11: 11: 11:04 Range(36.3C [...] previously admitted to a psychiatric facility in [place], but no medications had been started. Upon [...] attendance attending physician, fellow, charge nurse, social psychologist, recreational therapy and parent/guardian. The following topics [...] the note. I personally evaluated the patient [id number] Electronic Signatures: Melissa Araujo) (Signed 21-Aug-2020 19:17) Authored: Multidisciplinary Rounding, Note Completion Co-Signer: Subjective Data, Objective, Assessment and Plan, Medication Consent, Note Completion Twila Aviles (Resident)) (Signed 21-Aug-2020 17:54) Authored: Subjective Data, Objective, Assessment and Plan, Medication Consent, Note Completion Last Updated: 21-Aug-2020 19:17 by Melissa Araujo) [facility] ACETAMINOPHENon 08-20-2020 Acetaminophen [Mass/Vol] Canceled [facility] Comment on above: Order Comment: TEST ACETAMINOPHEN WAS CANCELLED, 08/20/2020 07:01 Performed By: #### A CETA #### [facility] [id number] [place] [address] Clinical Event Note-Consento n 08-20-2020 Clinical Event Note-Consent Clinical Event: Clinical Event Note: TopicConsent Details Architectural Wood Model Maker spoke with Guardian/ Sister (Misty) to seek [...] 16:13 by Eros Carver ( (Fellow)) [facility] Discharge Planning [id number] 0 08-20-2020 Discharge Planning Note2 Discharge Planning: Anticipated Discharge [id number] Discharge Planning 08.19.2020 [facility] Admission 17:59 18:00pm SOCIAL WORK NOTE- SW faxed precert request to [employer]. Erin Reed [facility] ext [phone] 08.20.2020 09:30am SOCIAL WORK NOTE - SW Goal: Sw to gather collateral from patient and guardians in order to set up appropriate follow up. Patient to participate in discharge planning with sw providing psychoeducation to pt. Patient to be able to identify 2-3 protective factors and outpatient services by 08.23.2020 Erin Reed [facility] ext [phone] 10:30am SOCIAL WORK NOTE. SW engaged the pt in group programming. Refer to programming/ behavioral flowsheet for additional information. Erin Reed [facility] ext [phone] 12:00pm SW met with pt to obtain collateral. Refer to psychiatric assessment for additional information. Erin Reed [facility] ext [phone] 15:13 SW spoke with pts guardian, her sister, Misty Hughes, at [phone], to obtain collateral. She stated that she is on the other line with the doctor and will call this worker back. End of phone call. Erin Reed [facility] ext [phone] 08.21.2020 11:30am SOCIAL WORK NOTE- SW received fax from [facility] stating the pt has a different primary insurance. SW to speak with pts sister about insurance and clarify . Erin Reed [facility] ext [phone] 13:35 SOCIAL WORK NOTE SW spoke with pts guardian, her sister, Misty Hughes, at [phone], to obtain collateral. Refer to narrative note/ psych assessment for additional information. She stated that the pt only has [employer] and no other insurance. Erin Reed [facility] ext [phone] 14:00pm SOCIAL WORK NOTE - SW called [facility] at [phone]. REBECCA confirmed the pts follow up with her therapist. [facility] asked that the SW fax over the H&P, Psychiatric assessment, and discharge paperwork to their fax the day before expected discharge so they can coordinate her discharge follow up appointments. She stated that they will schedule the [facility] after they receive the paperwork. Erin Reed [facility] ext [phone] 14:10 SOCIAL WORK NOTE- SW faxed pre cert to [facility] informing them that the pt does not have alternate insurance and requesting authorization for inpatient admission. 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 Sw spoke with guardian about calling CPS to assist as an overwhelmed guardian. Guardian was receptive and stated that she will call. SW will continue to follow patient for further discharge needs. Shelley CarreraKarishma Gonzales [facility] ext. [phone] 14:57 SOCIAL WORK NOTE: SW received [facility] authorization approving 5 days of admission, starting 08/19 through 08/23. [employer] updated.-Kamilla Burch, [facility] 08.23.2020 09:40am SOCIAL WORK NOTE - Team notes. Pt appears to be bright and doing well in groups. Pt to be discharged today. Erin Reed [facility] ext [phone] 10:00am SOCIAL WORK NOTE- SW called pts phillip, Misty, . REBECCA LVM in attempt to coordinate discharge. Erin Reed [facility] ext [phone] 10:06am SOCIAL WORK NOTE- SW faxed clinical to [facility]. Erin Reed [facility] ext [phone] 10:30am SOCIAL WORK NOTE- REBECCA spoke with the pts guardian, Misty, . REBECCA coordinated discharge with her for 11:30am. Erin Reed [facility] ext [phone] Assessment: Discharge Planning Assessment [id number] Primary Contact Name and NumberMisty Hughes [phone](1) Stated Reason for Admissionpatient stated she is very sad and feels alone in the world.(1) Arrived Fromhospital (1) Resource/Environmental Concernsnone(1) [facility] Services Anticipated at Transitioncommunity agency; mental health services(1) Nursing Checklist: Discharge Med Rec Reconciled with Bahman Patient has Prescriptionsyes Transportation for Discharge Confirmedyes Follow up Reviewedyes Discharge Instructions Reviewed WithPatient and Family Member Discharge Instructions Outcomeverbalize recall/understanding Discharge Instructions Review Completed with Patient/Family (diet, activity, pt instructions)yes Discharge Documentation: Discharge/Transfer Date/[id number] 11:58 Discharge Modeambulatory Discharged Accompanied Byguardian Transportation Methodprivate car Valuables/Medications/Belo ngings Returnedyes Final DispositionHome Electronic Signatures: Malini Reedily () (Signed 23-Aug-2020 10:35) Authored: Discharge Planning, Assessment Radha Horta (JAS) (Signed 23-Aug-2020 12:07) Authored: Discharge Planning, Nursing Checklist, Discharge Documentation Shelley Gonzales () (Signed 22-Aug-2020 13:35) Authored: Discharge Planning Kamilla Burch () (Signed 22-Aug-2020 14:58) Authored: Discharge Planning Last Updated: 23-Aug-2020 12:07 by Radha Horta (JAS) References: 1. Data Referenced From Patient Profile - Pediatric v2 19-Aug-2020 18:28 [facility] Discharge [id number] Discharge Profile2 Discharge Orders: Anticipated Discharge Date: Anticipated Discharge [id number] Problem List: Additional Dx: Current severe episode [...] and Family: Nationwide Suicide Hotline - 1 (346) SUICIDE (956-3421) Successful Interventions during Inpatient Hospital Stay: daily routine/ structure, group programming, parenting strategies/ education This patient is being discharged on multiple antipsychotic medications: no: Take all medications until outpatient provider advises otherwise. Provider FINAL REVIEW of Orders: Final Review: Final Review of Medication Reconciliation and Orders Completedby Physician Reviewing ProviderMelissa Araujo MD at 23-Aug-2020 08:47:48 Appointments: Follow-Up Appointment 01: Physician/Dept/[facility] Alicia De Luna Reason for ReferralCounseling Scheduled Date/[id number] 13:00 LocationIn Person Appointment [address] [place] [address] Phone NumberMain: [phone] Follow-Up Appointment 02[facility] Reason for ReferralPsychiatry [id number] [place] [address] Phone NumberMain: [phone] Follow-Up Appointment 03: Physician/Dept/[facility] Reason for ReferralCase Management/ Discharge Coordination [id number] [place] [address] Phone NumberMain: [phone] Electronic Signatures: Melissa Araujo) (Signed 23-Aug-2020 08:47) Authored: Discharge Orders, Psychiatric Continuing Care Plan, Provider FINAL REVIEW of Orders Erin Reed) (Signed 21-Aug-2020 14:03) Authored: Discharge Orders, Appointments, Gold Form - Senior Category Manager Summary Last Updated: 23-Aug-2020 08:47 by Melissa Araujo) [facility] History and Physical - Child Psychiatryon 08-20-2020 History and Physical - Child Psychiatry History of Present Illness: /Lactating: Are You no (1) Are You Currently Breastfeedingno (1) HPI: 14 yr old female admitted as a transfer from [facility] secondary to a Tylenol ingestion [...] 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 Reports daily worry about everything. She reports [...] not her when she was admitted to [facility]. Reports she last cut over year [...] Physician- Sister is legal guardian: Misty Hughes ([phone], work number [phone]) who reported that the patient recently was [...] see a psychiatrist for a while through [facility] but no medications were tried other than melatonin for sleep and the patient has had the same therapist (scheduled appointments but not seen as frequently (Alicia Palmer [facility]). The patient had reportedly told her [...] Psychiatric History: One psychiatric admission- previously in [place] in Jun, possibly 2016/2017 History of SI/SA [...] born when family was living in homeless group home, and they had been moving constantly, switched [...] was over the summer, Job- previously in [employer] in the [employer] School History: 9th grade no IEP [...] Hallucinations Objective Information: Objective Information: T PRBPSpO2 [id number]/6498% Date/Time08/19 17: 17: 17: 17: 17:00 Range(36.4C [...] deltoid, biceps, triceps, quadriceps, and hamstrings. Cerebellar: Aoisay-qi-deao and bjsh-zi-yjri test normal bilaterally. Balances with eyes closed [...] previously admitted to a psychiatric facility in [place], but no medications had been recommended and has a therapist through [facility]. Has had ongoing issues with impulsivity, sexually [...] reported the ED physician in [facility] stated patient had taken [...] the note. I personally evaluated the patient [id number] Attending Provider Inpatient Certification StatementI certify this patients need for inpatient care based on the above documentation including; the order to admit as inpatient, the anticipated length of stay, diagnosis, problem list and plan of care, and discharge plan. Admission Order - View OnlyCurrent Admission Order. Admit to Inpatient [facility] Peds Admitting Diagnosis, T39.1X1A Tylenol ingestion;T50.902A Suicide [...] Profile - Pediatric v2 19-Aug-2020 18:28 Normal [facility] TSH WITH REFLEX TO FREE T4 I F ABNORMALon 08-20-2020 TSH Qn 1.59 m[IU]/L Normal 0.44 - 3.98 [facility] Comment on above: Result Comment: TSH testing is performed using different testing methodology at [facility] than at other [facility]. Direct result comparisons should only be made within the same method. Performed By: #### T HYDS ####[id number] [place] [address] VITAMIN D, 25-HYDROXYon 07-29 VITAMIN D, 25-HYDROXY 27 ng/mL Abnormal [facility] Comment on above: Result Comment: . DEFICIENCY: < 20 NG/ML INSUFFICIENCY: 20-29 NG/ML SUFFICIENCY: 30-100 NG/ML THIS ASSAY ACCURATELY QUANTIFIES THE SUM OF VITAMIN D3, 25-HYDROXY AND VIT D2,25-HYDROXY. Performed By: #### V TDOH ####[id number] [place] [address] ACETAMINOPHENon 08-19-2020 Acetaminophen [Mass/Vol] <10.0 Normal 5.0 - 20.0 [facility] Comment on above: Performed By: #### A CETA #### [facility] [address] [place] [address] Admission Risk Screen - Pedi atricon 08-19-2020 [...] Able to be Assessed for Learningyes Educational Ppyof5lg9th grade Factors Influence Readiness to Learnnone, ready to learn, depression Factors Impact Ability to Learnnone Devices/Methods Used to Communicatenone Learning Preferencesaudio, computer/internet, individual instruction, verbal instruction Cultural Considerationsnone Developmental Considerationsnone Presybeterian Considerationsnone Other Learnerslegal guardian Learning Assessment (Other [...] Q Infant: Mobility(4) no limitation Mack Q Infant: Activity(4) no limitations Mack Q Infant: Sensory Perception(4) no impairment Mack Q Infant: Moisture(4) rarely moist Mack Q Infant: Friction [...] Spiritual Screen: Are there any cultural, spiritual, hinduism practices/values/needs that are important for us to knowno Do you want a visit/item from Pastoral Careno Would you like your Encephalographer/Quality Manager notifiedno [place] [facility]: Screen patients 10 yo and [...] to do anything to end your lifeno [place] Suicide Riskmoderate Optional Screens: Smoking Screen: Patient: Smoking within past 12 monthsno Anyone living in the home: Smoking within past 12 monthsno Tobacco Cessation Education (provide if tobacco used w/i last 12 months)not applicable Significant Indicatiors: Significant Indicators: Complete Electronic Signatures: Bradley Berry (ANNY) (Signed 19-Aug-2020 18:27) Authored: Admission Screens, Pressure Injury, Optional Screens Last Updated: 19-Aug-2020 18:27 by Bradley Berry (ANNY) Normal [facility] COAGULATION SCREENon 021 aPTT Coag (Bld) [Time] 25 s Normal 25 - 35 [facility] Comment on above: Result Comment: THE APTT IS NO LONGER USED FOR MONITORING UNFRACTIONATED HEPARIN THERAPY. FOR MONITORING HEPARIN THERAPY, USE THE HEPARIN ASSAY. Performed By: #### C OAGS #### [facility] [address] [place] [address] INR Coag (PPP) [Relative time] 1.3 {INR} High 0.9 - 1.1 [facility] Comment on above: Performed By: #### C OAGS #### [facility] [address] [place] [address] PT Coag (PPP) [Time] 14.9 s High 10.1 - 13.3 [facility] Comment on above: Performed By: #### C OAGS #### [facility] [address] [place] [address] Consult - Child Psychiatryon 08-19-2020 Consult - Child Psychiatry Consult Referral Information: Consult requested by (Attending Name): Dr. Kimi Cruz Reason: suicidal ideation/attempt History of Presenting Illness: HPI: 14 yr old female admitted as a transfer from [facility] secondary to a Tylenol ingestion [...] not her when she was admitted to [facility]. Reports she last cut over year [...] tomorrow. Sister is legal guardian: Misty Hughes ([phone], work number [phone]) who reported that the patient recently was [...] see a psychiatrist for a while through [facility] but no medications were tried other than melatonin for sleep and the patient has had the same therapist (scheduled appointments but not seen as frequently (Alicia Palmer [facility]). 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 Has had ongoing issues with impulsivity, sexually [...] reported the ED physician in [facility] stated patient had taken [...] the note. I personally evaluated the patient [id number] Comments/ Additional Findings 14 year old with [...] Completion Last Updated: 20-Aug-2020 07:37 by Gaurang Cook () [facility] Consult - Child Psychiatry This report has been cancelled. Normal [facility] Daily Progress Note - Peds-G [...] ----- Mn/Dy/Year TimeIntakeOutputNet Aug 19, 2020 2:00 [id number] Aug 19, 2020 6:00 [id number] Aug 18, 2020 10:00 [id number] The Intake and Output Totals for the [...] post activated charcoal and gastric lavage at [facility] ED and has completed the 21 hour [...] Dr. Yeny Morales MD PGY-1, Internal Medicine-Pediatrics [facility]. Signature/Cosignature/Atte station: Note Completion: I am [...] the following I personally evaluated the patient [id number] Comments/ Additional Findings Completed NAC with normalization of labs. Medically cleared for psych evaluation and anticipate transfer to inpatient psychiatry unit for additional treatment. Electronic Signatures: Gabrielle Wise) (Signed 20-Aug-2020 11:01) Authored: Note Completion Co-Signer: Assessment/Plan, Note Completion Jose Morales (Resident)) (Signed 19-Aug-2020 18:44) Authored: Service, Subjective Data, Nutrition, Objective Data, Assessment/Plan, Note Completion Last Updated: 20-Aug-2020 11:01 by Gabrielle Wise) Normal [facility] HEPATIC FUNCTION PANELon Albumin [Mass/Vol] 4.0 g/dL Normal 3.4 - 5.0 [facility] Comment on above: Performed By: #### H EPFP #### [facility] [address] [place] [address] ALP [Catalytic activity/Vol] 58 U/L Normal 52 - 239 [facility] Comment on above: Performed By: #### H EPFP #### [facility] [address] [place] [address] ALT [Catalytic activity/Vol] 15 U/L Normal 3 - 28 [facility] Comment on above: Result Comment: Val ents treated with Sulfasalazine may generate falsely decreased results for ALT. Performed By: #### H EPFP #### [facility] [address] [place] [address] AST [Catalytic activity/Vol] 19 U/L Normal 9 - 24 [facility] Comment on above: Performed By: #### H EPFP #### [facility] [address] [place] [address] Bilirubin [Mass/Vol] 0.4 mg/dL Normal 0.0 - 0.9 [facility] Comment on above: Performed By: #### H EPFP #### [facility] [address] [place] [address] Bilirubin.direct [Mass/Vol] 0.1 mg/dL Normal 0.0 - 0.3 [facility] Comment on above: Performed By: #### H EPFP #### [facility] [address] [place] [address] Protein [Mass/Vol] 6.5 g/dL Normal 6.2 - 7.7 [facility] Comment on above: Performed By: #### H EPFP #### [facility] [address] [place] [address] Measurementson 08-19-2020 Measurements Weight: Weight in kg48.6 kilogram(s) Weight Methodstated Height: Height in cm167 centimeter(s) Height Methodstated Citizen [place] Unit Translation (pounds, inches): Measurement Citizen Of [place] Unit Translations (Adult only): Weight in epi114.144 pound(s) Electronic Signatures: Bradley Berry (RN) (Signed 19-Aug-2020 18:17) Authored: Weight, Height, Citizen Of [place] Unit Translation (pounds, inches) Last Updated: 19-Aug-2020 18:17 by Bradley Berry (ANNY) Normal [facility] Patient Profile - Pediatric v2on 08-19-2020 Patient Profile - Pediatric v2 Profile: Initial Info: How to be AddressedAlyssa Parent NameAmber Valentina Spoken Language PreferredEnglish Parental Spoken Language PreferredEnglish Parental Reading Language PreferredEnglish Source of Informationpatient Legal CustodianAmber Valentina Are you currently using the Personal Power Efficiency Health Record or Knowlent Stated Reason for Admissionpatient stated she is very sad and feels alone in the world. Primary Contact Name and NumberMisty Hughes [phone] Ordered Visitationno Copy on Chartno Restraining Ordersno Restraining Order Copy on Chartno Legal Guardian Notified of Admissionlegal guardian aware of admission Notify PCPno PCP identified Informed of Patient Visiting Rightsyes Person Authorized to Receive Patient on DischargeMisty Hughes [facility] Patient Belongings Remaining with [...] sister Lives Withsister; legal guardian [facility] Anticipated at Transitioncommunity agency; mental health services School/Shkrqbu4yj grade/high school freshman Concerns Regarding School Performance/Peer [...] Health Mgmt, Relationship/Environ, Additional Information Chrystal Lara ([facility] (Signed 21-Aug-2020 08:32) Authored: Relationship/Environ Last Updated: 21-Aug-2020 08:32 by Chrystal Lara ([facility] References: 1. Data Referenced From History and Physical - Peds 18-Aug-2020 14:35 Normal [facility] Clinical Event Note-Consente d for psychiatry evaluationon 08-18-2020 Clinical Event Note-Consented for psychiatry evaluation Clinical Event: Clinical Event Note: TopicConsented for psychiatry evaluation Details Discussed Joanna with legal guardian Misty Hughes [phone], who gave consent for evaluation by psychiatry and, if needed, inpatient psychiatric treatment. Nile Bhakta MD Pediatrics PGY3 SAFE-T: icon high (1) Electronic Signatures: Darian Bhakta ( (Resident)) (Signed 18-Aug-2020 14:08) Authored: Clinical Event Note, SAFE-T Last Updated: 18-Aug-2020 14:08 by Darian Bhakta ( (Resident)) References: 1. Data Referenced From Triage - ED Peds 18-Aug-2020 11:35 Normal [facility] History and Physical - Pedso n 08-18-2020 History and Physical - Peds History of Present Illness: /Lactating: Are You no Are You Currently Breastfeedingno History of Present Illness: Admission Reason: Tylenol ingestion, suicide attempt HPI: Joanna is a 14 year old female with history of past suicide attempts who presents on transfer from [facility] ED after suicide attempt via ingestion of Tylenol. The [facility] Department arrived on scene at the patient's home around 730pm yesterday (08/17). Responders noted her to be somewhat disoriented, yelling at officers, and stated that she had ingested >50 Tylenol about 15 minutes prior to officers' arrival. This puts the ingestion around 715pm. She admitted that this was a suicide attempt at the time. At [facility], the ED started gastric decontamination with activated [...] Sneezing, Swelling Objective: Objective Information: T PRBPSpO2 [id number]/6895% Date/Time08/18 14: 14: 14: 14: 14:16 Range(36.1C [...] post activated charcoal and gastric lavage at [facility] ED and will finish the 21 hour [...] 3 bags per 21hr NAC protocol at [facility] - Currently on bag #3 NAC, ending 2330 (communication order: okay to continue the medication [...] >1.5 continue - Poison control consulted in [facility] #Suicidal ideation - Suicide precautions - 1:1 [...] residents note I personally evaluated the patient [id number] Attending Provider Inpatient Certification StatementI certify this patients need for inpatient care based on the above documentation including; the order to admit as inpatient, the anticipated length of stay, diagnosis, problem list and plan of care, and discharge plan. Admission Order - View OnlyCurrent Admission Order. Admit to Inpatient [facility] Peds Admitting Diagnosis, T39.1X1A Tylenol ingestion;T50.902A Suicide [...] Last Updated: 18-Aug-2020 17:26 by Maribel Loera) [facility] Letter - Admission Notificat ion to PCPon 08-18-2020 Letter - Admission Notification to PCP Letter of Admission: Today's Date: 19-Aug-2020. Dear Dr. Darian Cleveland. We would like to inform you that your patient was admitted to [facility] Floor 5 on the following date: 18-Aug-2020. The patient was admitted to the service of [facility] with concern for Suicidal Attempt through [...] Attending Physician . Electronic Signatures: Erika Perez (SUPPLIER ENGINEER) (Signed 19-Aug-2020 09:12) Authored: Admission Letter Shanon Figueroa (DIV SECT) (Signed 18-Aug-2020 12:42) Authored: Admission Letter Last Updated: 19-Aug-2020 09:12 by Erika Perez (SUPPLIER ENGINEER) Normal [facility] Measurementson 08-18-2020 Measurements Weight: Med Calc Weight (kg)48.6 kilogram(s) Electronic Signatures: Cassidy Kenny ( (Resident)) (Signed 18-Aug-2020 14:16) Authored: Weight Last Updated: 18-Aug-2020 14:16 by Cassidy Kenny ( (Resident)) Normal [facility] COMP METABOLIC PANELon 07-10 Albumin mass conc 4.0 g/dL Normal 3.5-5.7 [facility] Comment on above: Order Comment: Yes: Add to Previous draw if able Performed By: #### 0 0121, [id number], [id number] ####[facility] [place] [address], [facility] ALKALINE PHOSPH 169 IU/L Normal 90-460 [facility] Comment on above: Order Comment: Yes: Add to Previous draw if able Performed By: #### 0 0121, 71659, 67566 ####[facility] [place] [address], [facility] ALT enzyme act/vol 10 U/L Normal 7-52 [facility] Comment on above: Order Comment: Yes: Add to Previous draw if able Performed By: #### 0 0121, 77806, 57304 ####[facility] [place] [address], [place] AST enzyme act/vol 17 U/L Normal 13-39 [facility] Comment on above: Order Comment: Yes: Add to Previous draw if able Performed By: #### 0 0121, 52589, 31061 ####[facility] [place] [address], [facility] Bilirubin mass conc 0.5 mg/dL Normal 0.3-1.0 [facility] Comment on above: Order Comment: Yes: Add to Previous draw if able Performed By: #### 0 0121, 75678, 86162 ####[facility] [place] [address], [facility] Calcium mass conc 9.3 mg/dL Normal 8.6-10.3 [facility] Comment on above: Order Comment: Yes: Add to Previous draw if able Performed By: #### 0 0121, 18549, 49998 ####[facility] [place] [address], [facility] Chloride molar conc 105 mmol/L Normal 98-107 [facility] Comment on above: Order Comment: Yes: Add to Previous draw if able Performed By: #### 0 0121, 78279, 19365 ####[facility] [place] [address], [facility] CO2 molar conc 26 mmol/L Normal 21-31 [facility] Comment on above: Order Comment: Yes: Add to Previous draw if able Performed By: #### 0 0121, 25676, 47440 ####[facility] [place] [address], [facility] Creatinine mass conc 0.60 mg/dL Normal 0.60-1.20 [facility] Comment on above: Order Comment: Yes: Add to Previous draw if able Performed By: #### 0 0121, 87009, 74786 ####[facility] [place] [address], [facility] GFR/1.73 sq M predicted among blacks MDRD vol rate/area (S/P/Bld) Calculation not validated for patients under 18 years Abnormal >60 [facility] Comment on above: Order Comment: Yes: Add to Previous draw if able Performed By: #### 0 0121, 70260, 07638 ####[facility] [place] [address], [facility] GFR/1.73 sq M predicted among non-blacks MDRD vol rate/area (S/P/Bld) Calculation not validated for patients under 18 years Abnormal >60 [facility] Comment on above: Order Comment: Yes: Add to Previous draw if able Performed By: #### 0 0121, 26321, 88601 ####[facility] [place] [address], [facility] Glucose mass conc 100 mg/dL Normal 70-100 [facility] Comment on above: Order Comment: Yes: Add to Previous draw if able Performed By: #### 0 0121, 35490, 38420 ####[facility] [place] [address], [facility] Potassium molar conc 4.3 mmol/L Normal 3.5-5.1 [facility] Comment on above: Order Comment: Yes: Add to Previous draw if able Performed By: #### 0 0121, 05021, 78033 ####[facility] [place] [address], [facility] Protein mass conc 6.3 g/dL Normal 6.0-8.3 [facility] Comment on above: Order Comment: Yes: Add to Previous draw if able Performed By: #### 0 0121, 72558, 08565 ####[facility] [place] [address], [facility] Sodium molar conc 137 mmol/L Normal 136-145 [facility] Comment on above: Order Comment: Yes: Add to Previous draw if able Performed By: #### 0 0121, 53277, 10175 ####[facility] [place] [address], [place] Urea nitrogen mass conc 7 mg/dL Normal 7-25 [facility] Comment on above: Order Comment: Yes: Add to Previous draw if able Performed By: #### 0 0121, 40598, 89024 ####[facility] [place] [address], [facility] LIPID PROFILEon 07-10-2018 Cholesterol in HDL mass conc 38 mg/dL Normal 23-92 [facility] Comment on above: Order Comment: Yes: Add to Previous draw if able Result Comment: Slig ht variation in normal range could be due to gender and/or age.HDL CHOLESTEROL REFERENCE RANGE:20 years and older Cardiovascular Risk> or =60 mg/dL [id number] TO 59 mg/dL Low Risk<40 mg/dL High Risk Performed By: #### 0 0121, 19554, 83090 ####[facility] [facility] [place] [address], [facility] Cholesterol in LDL mass conc 50 mg/dL Normal 0-130 [facility] Comment on above: Order Comment: Yes: Add to Previous draw if able Result Comment: LDL IS A CALCULATIONLDL IS ONLY VALID IF THE TRIG IS LESS THAN 400. Performed By: #### 0 0121, 74218, 20535 ####[facility] [place] [address], [facility] Cholesterol mass conc 95 mg/dL Low 120-170 [facility] Comment on above: Order Comment: Yes: Add to Previous draw if able Result Comment: CHOL ESTEROL REFERENCE RANGE:20 YEARS AND OLDER CARDIOVASCULAR RISKLess than 200 mg/dl Low Avio582 to 239 mg/dl Borderline Kotl147 mg/dl and greater High Risk Performed By: #### 0 0121, 60420, 17305 ####[facility] [place] [address], [facility] Cholesterol.total/Chol esterol in HDL mass ratio 2.5 {ratio} Normal .0-4.5 [facility] Comment on above: Order Comment: Yes: Add to Previous draw if able Performed By: #### 0 0121, 12211, 08413 ####[facility].[address] NON-HDL CHOLESTEROL 57 mg/dL Normal [facility] Comment on above: Order Comment: Yes: Add to Previous draw if able Performed By: #### 0 0121, 08914, 17737 ####[facility].[address] Triglyceride mass conc 34 mg/dL Normal 30-131 [facility] Comment on above: Order Comment: Yes: Add to Previous draw if able Result Comment: TRIG LYCERIDE REFERENCE RANGE:20 YEARS AND OLDER CARDIOVASCULAR RISKLESS THAN 150 mg/dl LOW [id number] TO 199 mg/dl BORDERLINE CSJI853 mg/dl AND GREATER HIGH RISK Performed By: #### 0 0121, 80035, 34822 ####[facility].[address] VLDL CHOL 7 mg/dL Normal 0-40 [facility] Comment on above: Order Comment: Yes: Add to Previous draw if able Performed By: #### 0 0121, 81931, 27072 ####[facility].[address] SERUM TESTon 07-10 TEST Negative Normal [facility] Comment on above: Order Comment: Yes: Add to Previous draw if able Performed By: #### 4 6473 ####[facility].[address] TOX PANEL URINEon 07-10-2018 50 THC Negative Normal NEGATIVE [facility] Comment on above: Order Comment: No: D o not add to previous draw Performed By: #### 3 6459 ####[facility].[address] BARBITURATES Negative Normal NEGATIVE [facility] Comment on above: Order Comment: No: D o not add to previous draw Performed By: #### 3 8549 ####[facility] [place] [address], [place] BENZODIAZEPINES Negative Normal NEGATIVE [facility] Comment on above: Order Comment: No: D o not add to previous draw Performed By: #### 3 1079 ####[facility] [place] [address], [place] COCAINE Negative Normal NEGATIVE [facility] Comment on above: Order Comment: No: D o not add to previous draw Performed By: #### 3 1079 ####[facility] [place] [address], [place] METHADONE Negative Normal NEGATIVE [facility] Comment on above: Order Comment: No: D o not add to previous draw Performed By: #### 3 1079 ####[facility] [place] [address], [place] MONO AMPHET Negative Normal NEGATIVE [facility] Comment on above: Order Comment: No: D o not add to previous draw Performed By: #### 3 1079 ####[facility] [place] [address], [facility] OPIATES Negative Normal NEGATIVE [facility] Comment on above: Order Comment: No: D o not add to previous draw Performed By: #### 3 1079 ####[facility] [place] [address], [place] PHENCYCLIDINE Negative Normal NEGATIVE [facility] Comment on above: Order Comment: No: D o not add to previous draw Performed By: #### 3 1079 ####[facility] [place] [address], [place] TRICYCLICS Negative Normal NEGATIVE [facility] Comment on above: Order Comment: No: D o not add to previous draw Performed By: #### 3 1079 ####[facility] [place] [address], [facility] TSH3 07-10-2018 TSH 3RD GENERATION 1.09 uIU/mL Normal 0.34-5.60 [facility] Comment on above: Order Comment: Yes: Add to Previous draw if able Performed By: #### 0 0121, 37552, 40282 ####[facility] [place] [address], [facility] URINALYSISon 07-10-2018 APPEARANCE CLEAR Normal CLEAR [facility] Comment on above: Order Comment: No: D o not add to previous draw Performed By: #### 1 0008 ####[facility] [place] [address], [facility] BILIRUBIN Negative Normal NEGATIVE [facility] Comment on above: Order Comment: No: D o not add to previous draw Performed By: #### 1 0008 ####[facility] [place] [address], [facility] BLOOD Negative Normal NEGATIVE [facility] Comment on above: Order Comment: No: D o not add to previous draw Performed By: #### 1 0008 ####[facility] [place] [address], [facility] COLOR YELLOW Normal YELLOW [facility] Comment on above: Order Comment: No: D o not add to previous draw Performed By: #### 1 0008 ####[facility] [place] [address], [facility] EPIS MANY Abnormal FEW,OCC,NO NE SEEN [facility] Comment on above: Order Comment: No: D o not add to previous draw Performed By: #### 1 0008 ####[facility] [place] [address], [place] GLUCOSE Negative Normal NEGATIVE [facility] Comment on above: Order Comment: No: D o not add to previous draw Performed By: #### 1 0008 ####[facility] [place] [address], [place] INR Coag RelTime (Bld) 0-2 Abnormal NONE SEEN [facility] e [facility] Comment on above: Order Comment: No: D o not add to previous draw Performed By: #### 1 0008 ####[facility] [place] [address], [facility] KETONE TRACE Abnormal NEGATIVE [facility] Comment on above: Order Comment: No: D o not add to previous draw Performed By: #### 1 0008 ####[facility] [place] [address], [place] LEUK JOHNATHAN Negative Normal NEGATIVE [facility] Comment on above: Order Comment: No: D o not add to previous draw Performed By: #### 1 0008 ####[facility] [place] [address], [facility] MUCUS THREADS MANY Abnormal NONE SEEN [facility] Comment on above: Order Comment: No: D o not add to previous draw Performed By: #### 1 0008 ####[facility] [place] [address], [place] NITRITE Negative Normal NEGATIVE [facility] Comment on above: Order Comment: No: D o not add to previous draw Performed By: #### 1 0008 ####[facility] [place] [address], [facility] PH 5.0 Normal 5.0-8.0 [facility] Comment on above: Order Comment: No: D o not add to previous draw Performed By: #### 1 0008 ####[facility] [place] [address], [place] Protein mass conc Negative Normal NEGATIVE [facility] Comment on above: Order Comment: No: D o not add to previous draw Performed By: #### 1 0008 ####[facility] [place] [address], [facility] Performed By: #### 3 1079 ####[facility].[address] SPEC GRAV 1.024 High 1.015-1.02 0 [facility] Comment on above: Order Comment: No: D o not add to previous draw Performed By: #### 1 0008 ####[facility] [place] [address], [facility] WBC UA 0-2 Abnormal NONE SEEN [facility] Comment on above: Order Comment: No: D o not add to previous draw Performed By: #### 1 0008 ####[facility].[address] Vital Signs Date Time Vital Sign Value Performing Clinician Facility 08-31-2024 07:30-0500 Body temperature 98.1 [degF] Darian Cleveland DO Work Phone: [facility] 08-31-2024 07:30-0500 Diastolic blood pressure 67 mm[Hg] Darian Cleveland DO Work Phone: [facility] 08-31-2024 07:30-0500 Heart rate 53 /min Darian Cleveland DO Work Phone: [facility] 08-31-2024 07:30-0500 Respiratory rate 16 /min Darian Cleveland DO Work Phone: [facility] 08-31-2024 07:30-0500 SaO2% (BldA) [Mass fraction] 99 % Darian Cleveland DO Work Phone: [facility] 08-31-2024 07:30-0500 Systolic blood pressure 126 mm[Hg] Darian Cleveland DO Work Phone: [facility] 08-30-2024 14:57-0500 Body height 162.56 cm Darian Cleveland DO Work Phone: [facility] 08-30-2024 09:00-0500 Body weight 47.49 kg Darian Cleveland DO Work Phone: [facility] 05-14-2024 07:16-0400 Body temperature 97.8 [degF] PHYSICIAN NO [facility] 05-14-2024 07:16-0400 Diastolic blood pressure 72 mm[Hg] PHYSICIAN NO [facility] 05-14-2024 07:16-0400 Heart rate 82 /min PHYSICIAN NO [facility] 05-14-2024 07:16-0400 Respiratory rate 16 /min PHYSICIAN NO [facility] 05-14-2024 07:16-0400 SaO2% (BldA) [Mass fraction] 98 % PHYSICIAN NO [facility] 05-14-2024 07:16-0400 Systolic blood pressure 117 mm[Hg] PHYSICIAN NO [facility] 05-14-2024 07:15-0400 Body height 167.64 cm PHYSICIAN NO [facility] 05-14-2024 07:15-0400 Body weight 46.6 kg PHYSICIAN NO [facility] 10-19-2023 15:32-0400 Body temperature 98.7 [degF] PHYSICIAN NO [facility] 10-19-2023 15:32-0400 Diastolic blood pressure 68 mm[Hg] PHYSICIAN NO [facility] 10-19-2023 15:32-0400 Heart rate 73 /min PHYSICIAN NO [facility] 10-19-2023 15:32-0400 Respiratory rate 18 /min PHYSICIAN NO [facility] 10-19-2023 15:32-0400 SaO2% (BldA) [Mass fraction] 98 % PHYSICIAN NO [facility] 10-19-2023 15:32-0400 Systolic blood pressure 117 mm[Hg] PHYSICIAN NO [facility] 10-19-2023 02:43-0400 Body height 167.64 cm PHYSICIAN NO [facility] 10-19-2023 02:43-0400 Body weight 43.1 kg PHYSICIAN NO [facility] 10-03-2023 06:21-0500 Diastolic blood pressure 84 mm[Hg] PHYSICIAN NO [facility] 10-03-2023 06:21-0500 Heart rate 90 /min PHYSICIAN NO [facility] 10-03-2023 06:21-0500 Respiratory rate 20 /min PHYSICIAN NO [facility] 10-03-2023 06:21-0500 SaO2% (BldA) [Mass fraction] 100 % PHYSICIAN NO [facility] 10-03-2023 06:21-0500 Systolic blood pressure 124 mm[Hg] PHYSICIAN NO [facility] 10-03-2023 01:44-0500 Body height 167.64 cm PHYSICIAN NO [facility] 10-03-2023 01:44-0500 Body temperature 98.6 [degF] PHYSICIAN NO [facility] 10-03-2023 01:44-0500 Body weight 45 kg PHYSICIAN NO [facility] 10-01-2023 14:12-0500 Body height 167.64 cm PHYSICIAN NO [facility] 10-01-2023 14:12-0500 Body temperature 97.9 [degF] PHYSICIAN NO [facility]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
[2025-05-08 06:04] VITALS: PULSE 85
[2025-05-08 06:08] VITALS: BP 153/84; PULSE 85; O2SAT 98
[2025-05-08 06:09] VITALS: BP 131/83; PULSE 85; O2SAT 97
[2025-05-08 06:15] VITALS: PULSE 87; O2SAT 96
[2025-05-08] MEDS: 0.9 % SODIUM CHLORIDE 1,000 ML 1000 ML IV (06:24)
--- NOTE | 2025-05-08 06:26 | PC.NURSE ---
0600 Dr. Resendez calls posion control.
--- NOTE | 2025-05-08 06:28 | PC.NURSE ---
Patient rips out IV and takes off all monitoring equipment.
[2025-05-08 06:31] LABS: Glucose Urine UA NEGATIVE (NEGATIVE)
[2025-05-08 06:32] LABS: Hematocrit 44.3 % (36.0-48.0); Hemoglobin 14.7 g/dL (12.0-16.0); Immature Granulocytes Abs Auto 0.02 10^3/uL (0.00-0.03); Immature Granulocytes Pct Auto 0.2 % (0.0-0.5); Lymphocytes Absolute Auto 1.7 10^3/uL (1.2-3.8); Mean Corpuscular HGB Conc 33.2 g/dL (29.9-35.2); Mean Corpuscular Hemoglobin 30.7 pg (26.7-34.0); Mean Corpuscular Volume 92.5 fL (81.0-99.0); Platelet Count 310 10^3/uL (150-450); Red Blood Count 4.79 10^6/uL (4.20-5.40); White Blood Count 9.1 10^3/uL (4.0-11.0)
--- NOTE | 2025-05-08 06:35 | PC.NURSE ---
Patient throwing items in room, refusing to allow monitoring equipment. Threatening to leave facility, stands up from bed and throws items.
--- NOTE | 2025-05-08 06:43 | ED_ITS ---
HPI HPI - General Adult General Chief complaint: Overdose Stated complaint: other Time Seen by Provider: 05/08/25 05:54 Source: patient Mode of arrival: ambulance History of Present Illness HPI narrative: Patient is a 19-year-old female presenting to the emergency department via EMS for concerns of an overdose. EMS was called by the patient's boyfriend as she was found unresponsive in her apartment. On police arrival, they noted that the patient was unresponsive and she was given 4 mg of intranasal Narcan, which seemed to wake the patient up. On arrival to our ED, she is awake, alert, and vomiting into a basin. She states that she drank an entire bottle of DayQuil, NyQuil, omeprazole, and Motrin 2 hours prior to arrival. She states she has nothing to live for and wants to kill herself. She states she has a felony warrant out for her arrest. She has a history of bipolar disorder, but according to her boyfriend who is in the lobby, she does not take her medications. She has history of polysubstance use as well. Related Data Previous Rx's ?Medication ?Instructions ?Recorded doxycycline hyclate 100 mg tablet 100 mg PO BID 7 days #14 tabs 04/07/25 guaifenesin 600 mg tablet, 600 mg PO Q12H PRN congesti on #10 04/07/25 extended release 12 hr (Mucinex) tabs ibuprofen 600 mg tablet 600 mg PO Q8H PRN pain #20 t abs 04/07/25 Allergies Allergy/AdvReac Type Severity Reaction Status Date / Time ondansetron (From Zofran) Allergy Mild Vomiting Verified 12/26/24 07:50 Opioid HPI Opioid Management Most Recent Opioid Data: Last Pain Scale 10 04/07/25, 10:20 Ur Phencyclidine Scrn, (NEGATIVE) Negative Today, 06:00 Review of Systems ROS Status of ROS 10 or more systems reviewed and unremark able except as noted in history and below PFSH PFSH Social History Smoking status: Current every day smoker Little interest or pleasure in doing things: not at all Feeling down, depressed, or hopeless: not at all Exam Narrative Exam Narrative: CONSTITUTIONAL: Patient is actively vomiting, smells of alcohol, slurring her speech and agitated, oriented x 3 SKIN: Was warm and diaphoretic. EYES: Pupils are 5 mm and sluggishly reactive to light. No nystagmus. EARS, NOSE, THROAT: Moist oral mucosa. Vomiting nonbilious, none coffee-ground emesis. RESPIRATORY: Clear to auscultation bilaterally, no wheezes, crackles, or stridor, no use of accessory muscles CARDIOVASCULAR: Normal rate and regular rhythm. There is no S3, S4, murmur, rub. GASTROINTESTINAL: Abdomen was soft, non-tender, and non-distended. There is no guarding or rebound tenderness. No right upper quadrant tenderness. MUSCULOSKELETAL: Normal muscle tone and bulk. No deformities or external signs of injury. NEUROLOGIC: Patient is awake and alert. Moving all extremities equally. No clonus or rigidity. Constitutional Vital Signs, click to edit/add: Last Vital Signs Pulse 87 05/08/25 06:15 Resp 25 H 05/08/25 06:15 BP 131/83 05/08/25 06:09 Pulse Ox 96 05/08/25 06:15 O2 Del Method Room Air 05/08/25 05:50 Course Vital Signs Vital signs: Vital Signs Pulse Rate 88 05/08/25 05:50 Respiratory Rate 20 05/08/25 05:50 Blood Pressure 161/90 H 05/08/25 05:50 Pulse Oximetry 95 05/08/25 05:50 Oxygen Delivery Method Room Air 05/08/25 05:50 Pulse Rate 87 05/08/25 06:15 Respiratory Rate 25 H 05/08/25 06:15 Blood Pressure 131/83 05/08/25 06:09 Pulse Oximetry 96 05/08/25 06:15 Oxygen Delivery Method Room Air 05/08/25 05:50 Medical Decision Making [facility] Narrative Medical decision making narrative: Patient is a 19-year-old female presenting to the emergency department via police escort/EMS for concerns of a suicide attempt. The patient reportedly drank a bottle of NyQuil, DayQuil, omeprazole, Motrin 2 hours prior to arrival. She is also intoxicated on alcohol. Her vital signs on arrival are within normal limits. She is afebrile and hemodynamically stable. Examination as outlined above. I did immediately consult and discuss the patient with [place] [facility]/toxicology. Given the acetaminophen content and the DayQuil/NyQuil, they recommended an initial acetaminophen level and repeat level in 2 hours (which would be 4 hours postingestion). They recommended waiting for Tylenol levels prior to initiation of N-acetylcysteine. Additionally, she is at risk for anticholinergic toxicity and QT prolongation. They recommended 2 g magnesium sulfate and potassium repletion should her QT interval be prolonged greater than 400 ms. Differential diagnosis includes acetaminophen toxicity, anticholinergic toxicity, electrolyte derangement, sodium channel blockade, or other electrolyte/metabolic derangement. IV was established and toxicologic workup was obtained. She was given 1 L bolus normal saline. Suicide were cautions replaced. Constant one-to-one observer was ordered. 12 Lead EKG: Normal sinus rhythm at a rate of 84. Normal axis. No ST segment elevations. QRS, [place], and QTc interval within normal limits. Final impression: normal sinus rhythm without evidence of QT prolongation or sodium channel blockade. Patient will be signed out to Dr. Hutson pending work-up, medical clearance, and ultimately, psychiatric clearance. FINAL IMPRESSION: #Acute suicide attempt #Acute intentional overdose, rule out acetaminophen toxicity DISPOSITION: Signed out to oncoming ED physician CONDITION: Stable Lab Data Lab results reviewed: Yes I reviewed the patient's lab results Labs: Lab Results 05/08/25 05/08/25 Range/Units 06:00 06:08 WBC 9.1 (4.0-11.0) 10^3/uL RBC 4.79 (4.20-5.40) 10^6/uL Hgb 14.7 (12.0-16.0) g/dL Hct 44.3 (36.0-48.0) % MCV 92.5 (81.0-99.0) fL MCH 30.7 (26.7-34.0) pg MCHC 33.2 (29.9-35.2) g/dL RDW 12.3 (11.0-15.0) % Plt Count 310 (150-450) 10^3/uL MPV 9.2 L (9.5-13.5) fL Neut % (Auto) 72.5 (43.0-75.0) % Lymph % (Auto) 18.4 L (20.5-60.0) % [place] % (Auto) 8.5 (1.7-12.0) % Eos % (Auto) 0.1 L (0.9-7.0) % Baso % (Auto) 0.3 (0.2-2.0) % Neut # (Auto) 6.6 H (1.4-6.5) 10^3/uL Lymph # (Auto) 1.7 (1.2-3.8) 10^3/uL [place] # (Auto) 0.8 (0.3-0.8) 10^3/uL Eos # (Auto) 0.0 (0.0-0.7) 10^3/uL Baso # (Auto) 0.0 (0.0-0.1) 10^3/uL Abs Immat Gran (auto) 0.02 (0.00-0.03) 10^3/uL Imm/Tot Granulo (auto) 0.2 (0.0-0.5) % Serum HCG, Qual Negative (NEGATIVE) Urine Color Lt. yellow (YELLOW) Urine Clarity Clear (CLEAR) Urine pH 6.5 (5.0-9.0) Ur Specific [place] <=1.005 A (1.005-1.025) Urine Protein Negative (NEG/TRACE) mg/dL Urine Glucose (UA) Negative (NEGATIVE) mg/dL Urine Ketones Negative (NEGATIVE) mg/dL Urine Occult Blood Negative (NEGATIVE) Urine Nitrite Negative (NEGATIVE) Urine Bilirubin Negative (NEGATIVE) Urine Urobilinogen 0.2 (0.2-1.0) EU/dL Ur Leukocyte Esterase Negative (NEGATIVE) Urine RBC 0-2 (0-2) #/HPF Urine WBC 0-2 A (NONE SEEN) #/HPF Ur Squamous Epith Cells Rare (NONE/RARE) #/LPF Urine Crystals None seen (None Seen) #/HPF Urine Bacteria None seen (NONE SEEN) #/HPF Urine Casts None seen (NONE SEEN) #/LPF Urine Mucus None seen (NONE SEEN) Ur Culture Indicated? No Urine Opiates Screen Negative (NEGATIVE) Ur Buprenorphine Scrn Negative (NEGATIVE) Ur Oxycodone Screen Negative (NEGATIVE) Urine Methadone Screen Negative (NEGATIVE) Ur Barbiturates Screen Negative (NEGATIVE) U Tricyclic Antidepress Negative (NEGATIVE) Ur Phencyclidine Scrn Negative (NEGATIVE) Ur Amphetamines Screen Negative (NEGATIVE) U Methamphetamines Scrn Negative (NEGATIVE) U Benzodiazepines Scrn Negative (NEGATIVE) Urine Cocaine Screen Positive A (NEGATIVE) U Cannabinoids Screen Positive A (NEGATIVE) ECG Data Attestation: I personally reviewed and interpreted this ECG as follows: Discharge Plan Discharge Patient Disposition: Still a Patient
[2025-05-08 06:46] LABS: Cannabinoid Screen Urine POSITIVE (NEGATIVE); Cast Seen? NONE SEEN #/LPF (NONE SEEN); Crystals Seen? None Seen #/HPF (None Seen); Methamphetamines Screen Urine NEGATIVE (NEGATIVE); Tricyclic Antidepressant Urine NEGATIVE (NEGATIVE); Urine Culture Indicated NO
[2025-05-08 06:48] LABS: Acetaminophen 41.9 ug/mL (10.0-30.0); Alanine Aminotransferase 21 U/L (14-59); Albumin Globulin Ratio 1.5; Albumin Level 5.0 g/dL (3.4-5.0); Alkaline Phosphatase 80 U/L (46-116); Anion Gap 16.3; Aspartate Amino Transferase 18 U/L (15-37); Blood Urea Nitrogen 5.0 mg/dL (6.4-19.3); Calcium 9.3 mg/dL (8.5-10.1); Carbon Dioxide 23.4 mmol/L (21.0-32.0); Chloride 105 mmol/L (98-107); Estimated GFR (African America >60 (>=60 mL/min/1.73m^2); Estimated GFR (Non-African Ame >60 (>=60 mL/min/1.73m^2); Globulin 3.4 g/dL; Glucose 96 mg/dL (74-106); Potassium 3.7 mmol/L (3.5-5.1); Salicylate 3.5 mg/dL (<=19.9); Sodium 141 mmol/L (136-145); Total Protein 8.4 g/dL (6.4-8.2)
[2025-05-08 08:12] LABS: Acetaminophen 33.3 ug/mL (10.0-30.0)
[2025-05-08 08:57] VITALS: BP 108/61; PULSE 87; TEMP 36.9; O2SAT 98
--- NOTE | 2025-05-08 09:05 | PC.NURSE ---
adriana to Anahi's boyfriend after asking patiente for permission to upddate the boyfriend. boyfriends name is Monica Grace - [phone]. he stated that her sisters name is elizabet who she talks to regularly, and her moms name is Lucy Montgomery - [phone]. monica stated that he did not want to talk to her mom yet and let her know since she just recently was dc'd from hospital with heart issues. asked monica if he had any idea as to why patient may have wanted to harm herself and monica started to cry and said it was beccause he was breaking up with her and she knew it- stated that she is just not good and he wanted to get away from her. states that she has done this in the past, but not to this extent. talked to [facility] and let them know of the conversation that had talken place with Monica.
--- NOTE | 2025-05-08 11:54 | ED.GENADUL1 ---
HPI HPI - General Adult General Chief complaint: Overdose Stated complaint: other Time Seen by Provider: 05/08/25 05:54 Source: patient Mode of arrival: ambulance History of Present Illness HPI narrative: 19-year-old female presented to the emergency department and was initially seen by Dr. Resendez. Please see his full history and physical exam. Related Data Previous Rx's ?Medication ?Instructions ?Recorded doxycycline hyclate 100 mg tablet 100 mg PO BID 7 days #14 tabs 04/07/25 guaifenesin 600 mg tablet, 600 mg PO Q12H PRN congestion #10 04/07/25 extended release 12 hr (Mucinex) tabs ibuprofen 600 mg tablet 600 mg PO Q8H PRN pain #20 tabs 04/07/25 Allergies Allergy/AdvReac Type Severity Reaction Status Date / Time ondansetron (From Zofran) Allergy Mild Vomiting Verified 12/26/24 07:50 Opioid HPI Opioid Management Most Recent Opioid Data: Last Pain Scale 10 04/07/25, 10:20 Ur Phencyclidine Scrn, (NEGATIVE) Negative Today, 06:00 PFSH PFSH Social History Smoking status: Current every day smoker Little interest or pleasure in doing things: not at all Feeling down, depressed, or hopeless: not at all Exam Constitutional Vital Signs, click to edit/add: Last Vital Signs Temp 98.5 F 05/08/25 08:57 Pulse 87 05/08/25 08:57 Resp 20 05/08/25 08:57 BP 108/61 05/08/25 08:57 Pulse Ox 98 05/08/25 08:57 O2 Del Method Room Air 05/08/25 05:50 Course Vital Signs Vital signs: Vital Signs Pulse Rate 88 05/08/25 05:50 Respiratory Rate 20 05/08/25 05:50 Blood Pressure 161/90 H 05/08/25 05:50 Pulse Oximetry 95 05/08/25 05:50 Oxygen Delivery Method Room Air 05/08/25 05:50 Temperature 98.5 F 05/08/25 08:57 Pulse Rate 87 05/08/25 08:57 Respiratory Rate 20 05/08/25 08:57 Blood Pressure 108/61 05/08/25 08:57 Pulse Oximetry 98 05/08/25 08:57 Oxygen Delivery Method Room Air 05/08/25 05:50 Medical Decision Making MDM Narrative Medical decision making narrative: Second Tylenol level has come down. She is medically cleared and has been interviewed by mental health services. She is going to go by involuntary admission to [address] [facility]. Differential Diagnosis Differential Diagnosis: Suicidal ideation, overdose Lab Data Lab results reviewed: Yes I reviewed the patient's lab results Labs: Lab Results 05/08/25 05/08/25 05/08/25 Range/Units 06:00 06:08 07:57 WBC 9.1 (4.0-11.0) 10^3/uL RBC 4.79 (4.20-5.40) 10^6/uL Hgb 14.7 (12.0-16.0) g/dL Hct 44.3 (36.0-48.0) % MCV 92.5 (81.0-99.0) fL MCH 30.7 (26.7-34.0) pg MCHC 33.2 (29.9-35.2) g/dL RDW 12.3 (11.0-15.0) % Plt Count 310 (150-450) 10^3/uL MPV 9.2 L (9.5-13.5) fL Neut % (Auto) 72.5 (43.0-75.0) % Lymph % (Auto) 18.4 L (20.5-60.0) % [place] % (Auto) 8.5 (1.7-12.0) % Eos % (Auto) 0.1 L (0.9-7.0) % Baso % (Auto) 0.3 (0.2-2.0) % Neut # (Auto) 6.6 H (1.4-6.5) 10^3/uL Lymph # (Auto) 1.7 (1.2-3.8) 10^3/uL [place] # (Auto) 0.8 (0.3-0.8) 10^3/uL Eos # (Auto) 0.0 (0.0-0.7) 10^3/uL Baso # (Auto) 0.0 (0.0-0.1) 10^3/uL Abs Immat Gran (auto) 0.02 (0.00-0.03) 10^3/uL Imm/Tot Granulo (auto) 0.2 (0.0-0.5) % Sodium 141 (136-145) mmol/L Potassium 3.7 (3.5-5.1) mmol/L Chloride 105 (98-107) mmol/L Carbon Dioxide 23.4 (21.0-32.0) mmol/L Anion Gap 16.3 BUN 5.0 L (6.4-19.3) mg/dL Creatinine 0.69 (0.55-1.02) mg/dL Est GFR ( Amer) >60 (>=60 mL/min/1.73m^2) Est GFR (Non-Af Amer) >60 (>=60 mL/min/1.73m^2) BUN/Creatinine Ratio 7.2 Glucose 96 (74-106) mg/dL Calcium 9.3 (8.5-10.1) mg/dL Total Bilirubin 0.4 (0.2-1.0) mg/dL AST 18 (15-37) U/L ALT 21 (14-59) U/L Alkaline Phosphatase 80 (46-116) U/L Total Protein 8.4 H (6.4-8.2) g/dL Albumin 5.0 (3.4-5.0) g/dL Globulin 3.4 g/dL Albumin/Globulin Ratio 1.5 Serum HCG, Qual Negative (NEGATIVE) Urine Color Lt. yellow (YELLOW) Urine Clarity Clear (CLEAR) Urine pH 6.5 (5.0-9.0) Ur Specific [place] <=1.005 A (1.005-1.025) Urine Protein Negative (NEG/TRACE) mg/dL Urine Glucose (UA) Negative (NEGATIVE) mg/dL Urine Ketones Negative (NEGATIVE) mg/dL Urine Occult Blood Negative (NEGATIVE) Urine Nitrite Negative (NEGATIVE) Urine Bilirubin Negative (NEGATIVE) Urine Urobilinogen 0.2 (0.2-1.0) EU/dL Ur Leukocyte Esterase Negative (NEGATIVE) Urine RBC 0-2 (0-2) #/HPF Urine WBC 0-2 A (NONE SEEN) #/HPF Ur Squamous Epith Cells Rare (NONE/RARE) #/LPF Urine Crystals None seen (None Seen) #/HPF Urine Bacteria None seen (NONE SEEN) #/HPF Urine Casts None seen (NONE SEEN) #/LPF Urine Mucus None seen (NONE SEEN) Ur Culture Indicated? No Salicylates 3.5 (<=19.9) mg/dL Urine Opiates Screen Negative (NEGATIVE) Ur Buprenorphine Scrn Negative (NEGATIVE) Ur Oxycodone Screen Negative (NEGATIVE) Urine Methadone Screen Negative (NEGATIVE) Acetaminophen 41.9 H 33.3 H (10.0-30.0) ug/mL Ur Barbiturates Screen Negative (NEGATIVE) U Tricyclic Antidepress Negative (NEGATIVE) Ur Phencyclidine Scrn Negative (NEGATIVE) Ur Amphetamines Screen Negative (NEGATIVE) U Methamphetamines Scrn Negative (NEGATIVE) U Benzodiazepines Scrn Negative (NEGATIVE) Urine Cocaine Screen Positive A (NEGATIVE) U Cannabinoids Screen Positive A (NEGATIVE) Ethanol Quant 93 mg/dL Discharge Plan Discharge Chief Complaint: Overdose Clinical Impression: Suicide attempt by drug overdose Patient Disposition: [facility] Time of Disposition Decision: 11:54 Discharge Location: [facility] Condition: Fair Mode of Transportation: EMS
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
--- NOTE | 2025-05-08 12:49 | PC.NURSE ---
patient stated that she wanted to clean up and use the phone- after [facility] had notified her of being pink slipped to [address]. LET PATIENT KNOW THAT SHE IS NOT ABLE TO SHOWER NOW, BUT WILL BRING IN MATERIALS TO LET PATIENT GET CLEANED UP. PATIENT STARTED RAISING VOICE AND YELLING AT THIS NURSE ABOUT NOT BEING ABLE TO SHOWER. EXPLAIN TO PATIENT AGAIN THAT THERE IS A BASIN AND TOWELS FOR HER SO THAT SHE CAN CLEAN HERSELF UP. THEN PATIENT STARTED YELLING ABOUT USING THE PHONE. STATING THAT SHE WANTED TO CALL HER FAMILY AND THEN SHE NEEDED TO SEE THE PHONE AND NOT JUST HAVE THIS NURSE DIAL IT FOR HER- YELLING AND SCREAMING ABOUT NOT BEING ABLE TO SEE THE PHONE AND SHE SAID SHE HAS TO HOLD THE PHONE, TOLD PATIENT NO, PATIENT THEN GAVE NUMBER TO BOYFRIEND AND THEN STARTED YELLING SAYING THAT SHE DIDN'T KNOW WHERE SHE WAS WHEN TALKING TO HIM AND THAT NO ONE WILL LET HER TAKE A SHOWER AND SHE WANTS HER PHONE AND THEN PATIENT THREW HERSELF OFF THE CART AND LAID ON FLOOR. THIS NURSE PICKED UP PHONE AND LET THE BOYFRIEND KNOW THAT SHE WANTED TO CALL HIM, LET HIM KNOW THAT SHE WAS OFFERED TO GET CLEANED UP AND SHE REFUSED- AND THAT AT THIS TIME SHE IS BEING PINK SLIPPED TO [address]. PATIENT STARTED YELLING AGAIN, KICKED THE CHAIR THAT WAS BESIDE HER WHILE SHE IS STILL LAYING ON THE FLOOR AND THEN PICKED UP THE CHAIR AND THREW THAT CHAIR AT THIS NURSE AND THE NURSE AID CONSTANT OBSERVER THAT WAS IN THE ROOM. CHAIR WAS THEN REMOVED AND ANYTHING ELSE WAS REMOVED THAT COULD BE THROWN OR HARMFUL TO PATIENT OR STAFF. [facility] POLICE WERE CALLED AGAIN AND PATIENT GOT UP AND PUT HERSELF BACK ON THE CART, WHILE YELLING AND SCREAMING AT THIS NURSE. PATIENT THEN GRABBED THE CLEAN PAIR OF PANTS THAT WAS BROUGHT IN TO PATIENT AND THEN PROCEEDED TO GET UP, GRAB THE PANTS, AND TRY TO CLOSE THE DOOR INSTRUCTED THE PATIENT THAT SOMEONE NEEDS TO BE THE ROOM WITH HER AT ALL TIMES- PATIENT CONTINUES YELLING AND SCREAMING AT STAFF AND TAKES OFF SOILED PANTS TRIES TO PUT THE NEW CLEAN PANTS ON- THEY WERE TO LARGE FOR HER SO PATIENT TRIED TO SHUT THIS NURSE OUT OF THE ROOM AND WHEN THIS NURSE RESISTED THE DOOR FROM CLOSING THE PATIENT TOOK A PIECE OF CLOTHING AND THREW THEM IN THIS NURSES RIGHT SIDE OF FACE AND AROUND NECK, IN A WHIPPING ACTION, MULTIPLE TIMES AND CONTINUED TO TRY TO CLOSE THE DOOR SHUT. PATIENT THEN CONTINUED YELLING- DR IN ROOM TO SPEAK TO PATIENT. POLICE ARRIVED AND WENT INTO PATIENTS ROOM TO TALK TO HER- PATIENT HAS SINCE STOPPED YELLING AND AGREED NOW TO TAKE A SPONGE BATH. CONSTANT OBSERVER IN ROOM WITH PATIENT HELPING HER TO CLEAN HER SELF UP AND MONITOR PATIENT.
== END 2025-05-08 12:41 ==
PROVIDERS: Student in an Organized Health Care Education/Training Program; Emergency Provider Emergency Medicine
DX: T39.312A Poisoning by propionic acid derivatives, intentional self-harm, initial encounter (principal); R45.6 Violent behavior; T47.1X2A Poisoning by other antacids and anti-gastric-secretion drugs, intentional self-harm, initial encounter; T50.992A Poisoning by other drugs, medicaments and biological substances, intentional self-harm, initial encounter; R40.4 Transient alteration of awareness; F31.9 Bipolar disorder, unspecified; F17.200 Nicotine dependence, unspecified, uncomplicated
CPT/HCPCS: 36415; 80053; 80179; 80307; 80320; 80329; 81001; 84703; 85025; 93005; 99284